=== PATIENT | male | born 1960 | race Caucasian/White ===

== ENCOUNTER 2019-11-16 16:17 | Outpatient (CLI) | payer BC, SELFPAY ==
--- NOTE | ~2019-11-16 | XR_ITS ---
EXAMINATION: XR chest 2V DATE: 11/16/2019 16:39 INDICATION: Shortness of breath, COPD TECHNIQUE: PA and lateral views of the chest are obtained. COMPARISON: 10/10/2019, 08/29/2019 FINDINGS: A right internal jugular Port-A-Cath ends with its tip in the right atrium. There are inter stitial and airspace opacities of the right mid and lower lung zone which demonstrate interval worsen ing. Patchy opacities of the left mid and lower lung zones have developed. There is no pleural effusi on or pneumothorax. The heart size is normal. There is moderate thoracic spondylosis. Partially image d changes of cervical fusion are noted. IMPRESSION: 1. Opacities of the mid and lower lung zones, worse on the right and new on the left, likely acute pn eumonia and/or pulmonary edema superimposed on chronic interstitial lung disease and emphysema. Reviewed, dictated and finalized at location A. UNTING MACHINE SERVICER IMPRESSION: 1. Opacities of the mid and lower lung zones, worse on the right and new on the left, likely acute pneumonia and/or pulmonary edema superimposed on chronic in terstitial lung disease and emphysema.
== END 2019-11-16 16:18 | disposition home or self-care (01) ==
LOC: ANHIMG 16:20
PROVIDERS: Visit Provider Internal Medicine Pulmonary Disease
DX: J44.9 Chronic obstructive pulmonary disease, unspecified (principal); R06.02 Shortness of breath; R91.8 Other nonspecific abnormal finding of lung field
CPT/HCPCS: 71046

== ENCOUNTER 2019-11-23 14:26 | Outpatient (CLI) | payer BC, SELFPAY ==
--- NOTE | ~2019-11-23 | XR_ITS ---
EXAMINATION: XR chest 2V EXAM DATE: 11/23/2019 14:49 INDICATION: Lung disorder. Airspace disease. TECHNIQUE: Frontal and lateral projections of the chest obtained and reviewed. Comparison is made to prior examination from 11/16/2019, 10/10/2019. FINDINGS: Right-sided portacatheter. Again there is extensive bilateral abnormal reticulation, worse on the right side. This is not significantly changed compared to, but progressed compared to 10/10 . Certainly has chronic interstitial lung disease but there may be superimposed acute component as we ll. There is no pneumothorax suspected. There are no pleural effusions. Cardiomediastinal silhouette is normal. There are no osseous abnormalities identified. IMPRESSION: 1. Persistent extensive abnormal reticulation, chronic or acute infection on chronic pulmonary fibr osis. Reviewed, dictated and finalized at location B. ICE RN IMPRESSION: 1. Persistent extensive abnormal reticulation, chronic or acute infection on chronic pulmonary fibrosis.
== END 2019-11-23 14:27 | disposition home or self-care (01) ==
LOC: ANHIMG 14:31
PROVIDERS: Visit Provider Internal Medicine Pulmonary Disease
DX: J98.4 Other disorders of lung (principal); J84.10 Pulmonary fibrosis, unspecified; R91.8 Other nonspecific abnormal finding of lung field
CPT/HCPCS: 71046

== ENCOUNTER 2019-11-28 12:23 | Inpatient (IN) | payer BC, SELFPAY ==
[2019-11-28] VITALS (13 sets, daily range): BP systolic 108–141; BP diastolic 71–112; PULSE 106–150; RESP 33–41; TEMP 37.1–37.6; O2SAT 41–97; BMI 25.5
--- NOTE | ~2019-11-28 | XR_ITS ---
XR chest 1V portable 12/03/2019 05:35 Indication: Acute respiratory failure. Pneumonia. Interstitial lung disease. Procedure: AP portable chest Comparison: Comparison to multiple prior studies sequentially, with oldest reviewed study dated 11/2019. Findings: Endotracheal tube tip 2.6 cm above the poornima. NG tube in the stomach. Stable cardiomegaly. Right IJ central line tip in the right atrium. Persistent diffuse bilateral airspace disease superim posed on chronic pulmonary fibrosis. Impression: 1: Persistent diffuse bilateral airspace disease superimposed on chronic pulmonary fibrosis. Differcande tiamichael diagnosis includes pneumonia, edema and/or ARDS. No significant change. Reviewed, dictated and finalized at location A. PULLER Impression: 1: Persistent diffuse bilateral airspace disease superimposed on chronic pulmon etienne fibrosis. Differential diagnosis includes pneumonia, edema and/or ARDS. No significant change.
--- NOTE | ~2019-11-28 | XR_ITS ---
XR chest 1V portable 12/06/2019 06:00 Indication: Acute respiratory failure. Interstitial lung disease. Procedure: AP portable chest Comparison: Comparison to multiple prior studies sequentially, with oldest reviewed study dated . Findings: Endotracheal tube tip 4.7 cm above the poornima. NG tube in the stomach. Port catheter tip in the right atrium. There is stable extensive mixed interstitial and airspace disease of both lungs. N o pleural effusion or pneumothorax. Impression: 1: Stable mixed interstitial and airspace disease throughout both lungs, likely edema or pneumonia price perimposed on pulmonary fibrosis. Reviewed, dictated and finalized at location A. Impression: 1: Stable mixed interstitial and airspace disease throughout both lungs, likely edema or pneumonia superimposed on pulmonary fibrosis.
--- NOTE | ~2019-11-28 | XR_ITS ---
EXAMINATION: XR chest ET placement, XR abdomen NG/feed tube insert DATE: 11/29/2019 00:33 INDICATION: Endotracheal tube and nasogastric tube placement. TECHNIQUE: 1. Frontal view of the chest was obtained. 2. AP view of the abdomen was obtained. COMPARISON: Chest radiograph dated 11/28/19 FINDINGS: Endotracheal tube tip 4.4 cm above the poornima. Right internal jugular central venous port catheter wi th distal tip at the right atrium. Nasogastric tube tip in proximal side port in the body of the stom ach. Slight progression in diffuse bilateral interstitial and airspace opacities. No pneumothorax or defin itive pleural effusion. Borderline heart size. No dilated gas-filled bowel to suggest obstruction. IMPRESSION: 1. Lines and tubes in expected positions. 2. Slight progression of diffuse bilateral lung disease which could represent pneumonia, pulmonary ed carlos and/or ARDS. Reviewed, dictated and finalized at location A. T COURT MAGISTRATE IMPRESSION: 1. Lines and tubes in expected positions. 2. Slight progression of diffuse bilateral lung disease which could represent p neumonia, pulmonary edema and/or ARDS.
--- NOTE | ~2019-11-28 | XR_ITS ---
EXAMINATION: XR chest 1V portable DATE: 11/30/2019 06:07 INDICATION: Acute respiratory failure TECHNIQUE: frontal view of the chest was obtained. COMPARISON: Chest radiograph dated 11/29/2019 FINDINGS: Endotracheal tube tip 2.4 cm above the poornima. Right internal jugular central venous catheter with di stal tip in the right atrium. Nasogastric tube extends below the left hemidiaphragm with distal tip collimated off the study. Unchanged diffuse bilateral interstitial and airspace opacities, relatively sparing the apices. No pn eumothorax or pleural effusion. The cardiomediastinal silhouette is normal. IMPRESSION: 1. Diffuse bilateral lung disease which could represent pneumonia, pulmonary edema and/or ARDS. Reviewed, dictated and finalized at location A. BUSINESS ANALYST IMPRESSION: 1. Diffuse bilateral lung disease which could represent pneumonia, pulmonary ed carlos and/or ARDS.
--- NOTE | ~2019-11-28 | XR_ITS ---
XR chest 1V portable 11/28/2019 13:44 Indication: Hypoxia. Dyspnea. Procedure: AP portable chest Comparison: Comparison to multiple prior studies sequentially, with oldest reviewed study dated 02/05. Findings: Borderline heart size. Port catheter tip near the cavoatrial junction. Extensive bilateral airspace disease, likely superimposed on chronic fibrosis. No pneumothorax or pleural effusion. Impression: 1: Extensive bilateral airspace disease which may represent pneumonia, edema and/or ARDS. There is kenn guajardoy superimposed underlying chronic fibrosis. Reviewed, dictated and finalized at location B. WARE APPLICATION TESTER Impression: 1: Extensive bilateral airspace disease which may represent pneumonia, edema an d/or ARDS. There is likely superimposed underlying chronic fibrosis.
--- NOTE | ~2019-11-28 | CT_ITS ---
EXAMINATION: CTA chest PE protocol DATE: 11/28/2019 13:48 CONSULTING ANALYST INDICATION: Cough with dyspnea. Hypoxia. TECHNIQUE: Computed tomographic angiography (CTA) of the chest was performed with 100 mL Omnipaque-35 0 intravenous contrast. The dose-length product was 417.71 mGy-cm. Maximum intensity projection 3D-re constructions of the aorta and other arteries were constructed by the technologist on a separate work station. Automated exposure control and iterative reconstruction technique were employed. COMPARISON: CT dated 08/29/2019 FINDINGS: Study is technically adequate. There are filling defects in left lower lobe subsegmental pu lmonary arteries, consistent with pulmonary embolism, small thrombus burden. Small right pleural effu fidel. Heart size normal. There has been progression of extensive bronchiectasis throughout both lungs. There is extensive airs pace consolidation with underlying diffuse groundglass opacification. No pneumothorax. Mild thoracic spondylosis. Irregular shaped right upper lobe mass measures 3 x 2.3 cm consistent with known broncho genic carcinoma. IMPRESSION: 1. Subsegmental pulmonary embolism left lower lobe, small thrombus burden. 2: Significant progression of mixed interstitial and airspace disease throughout both lungs which may represent a combination of pneumonia, edema, metastatic disease and/or fibrosis. There has been sign ificant progression of bronchiectasis/honeycombing throughout both lungs. 3: Persistent right upper lobe mass without significant change allowing for differences of technique, compatible with known bronchogenic carcinoma. Reviewed, dictated and finalized at location B. ULTING ANALYST IMPRESSION: 1. Subsegmental pulmonary embolism left lower lobe, small thrombus burden. 2: Significant progression of mixed interstitial and airspace disease throughou t both lungs which may represent a combination of pneumonia, edema, metastatic disease and/or fibrosis. There has been significant progression of bronchiectas is/honeycombing throughout both lungs. 3: Persistent right upper lobe mass without significant change allowing for dif ferences of technique, compatible with known bronchogenic carcinoma.
--- NOTE | ~2019-11-28 | XR_ITS ---
XR chest 1V portable DATE: 12/09/2019 05:51 INDICATION: Respiratory failure TECHNIQUE: Portable AP chest on 12/09/2019 at 0524 hours COMPARISON: 12/08/2019 portable AP chest at 0518 hours FINDINGS: There is no significant change in the diffuse bilateral pulmonary interstitial infiltrate a nd/or fibrosis since 12/08/2019. ET tube in satisfactory position approximately 3.5 cm above poornima. NG tube in distal stomach. Right internal jugular Port-A-Cath catheter tip overlies the lower right atrium. IMPRESSION: Diffuse bilateral pulmonary interstitial infiltrates and/or fibrosis; no significant edwards ge since 12/08/2019 Reviewed, dictated and finalized at location A. IMPRESSION: Diffuse bilateral pulmonary interstitial infiltrates and/or fibrosi s; no significant change since 12/08/2019
--- NOTE | ~2019-11-28 | XR_ITS ---
XR chest 1V portable DATE: 12/08/2019 06:18 INDICATION: Respiratory failure TECHNIQUE: Portable AP chest on 12/08/2019 at 0518 hours COMPARISON: 12/07/2019 portable AP chest at 0524 hours FINDINGS: ET tube tip is 4.9 cm above poornima in satisfactory position. NG tube extends into the dista l stomach. Right internal jugular Port-A-Cath tip overlying lower right atrium. Diffuse interstitial bilateral pulmonary infiltrates and/or fibrosis, unchanged since 12/07/2019 IMPRESSION: No significant change since 12/07/2019 Reviewed, dictated and finalized at location A.
--- NOTE | ~2019-11-28 | CT_ITS ---
EXAMINATION: CT humerus LT wo con DATE: 12/08/2019 11:29 INDICATION: Left upper arm swelling. TECHNIQUE: Computed tomography (CT) of the left humerus was performed without intravenous contrast. A utomated exposure control and iterative reconstruction technique were employed. The dose-length produ ct was 1350.99 mGy-cm. COMPARISON: Chest CT 11/28/2019 FINDINGS: The endotracheal tube tip is in expected position. The nasogastric tube tip is not included , but is likely in the distal stomach or proximal duodenum. Pneumomediastinum is noted. Left lung dem onstrates a combination of emphysema and chronic interstitial lung disease. There are diffuse patchy groundglass opacities in left lung. Calcified left lung nodules and calcified left hilar and mediasti nal lymph nodes are consistent with old granulomatous disease. There are changes of anterior fusion p rocedure in cervical spine. Bone alignment is normal. No fracture. There is mild osteoarthritis of gl enohumeral joint and acromio clavicular joint. There is a large hematoma involving the biceps and bra chialis muscles. IMPRESSION: 1. Large hematoma involving the left biceps and brachialis muscles. 2. Pneumomediastinum. 3. Diffuse left lung disease, likely a combination of emphysema and chronic interstitial lung disease with superimposed pulmonary edema versus pneumonia. Reviewed, dictated and finalized at location A. IMPRESSION: 1. Large hematoma involving the left biceps and brachialis muscles. 2. Pneumomediastinum. 3. Diffuse left lung disease, likely a combination of emphysema and chronic int erstitial lung disease with superimposed pulmonary edema versus pneumonia.
--- NOTE | ~2019-11-28 | XR_ITS ---
EXAMINATION: XR chest ET placement EXAM DATE: 12/03/2019 16:59 INDICATION: Intubated. TECHNIQUE: Portable AP frontal chest x-ray was obtained. Comparison is made to prior examination from 12/03/2019. Correlation was made with chest CT 11/28/2019. FINDINGS: Endotracheal tube tip is 5 centimeters above the poornima (ideal range is between 2 to 5 cm). There is a nasogastric tube seen with tip collimated off the study, but below the left hemidiaphrag m. Right-sided portacatheter, intact line. Cervical fusion hardware. Again there is diffuse abnormal reticulation airspace disease, appearance is not significant changed compared to prior study. Probably acute edema or pneumonia superimposed on chronic interstitial lung disease. No sizable pleural effusion. The cardiomediastinal silhouette is prominent but magnified on this AP technique. There is no pneumothorax suspected. There are mild bony degenerative changes. IMPRESSION: 1. Tubes in position. 2. Extensive airspace disease likely acute on chronic fibrosis. Reviewed, dictated and finalized at location A. LANGUAGE INSTRUCTOR
--- NOTE | ~2019-11-28 | XR_ITS ---
EXAMINATION: XR chest 1V portable DATE: 12/02/2019 05:14 INDICATION: Acute respiratory failure. TECHNIQUE: A single frontal view of the chest was obtained. COMPARISON: Chest single view 12/01/2019 FINDINGS: There is mild volume loss in right hemithorax. There are coarse interstitial opacities and patchy airspace opacities throughout the lungs bilaterally. No pleural effusion or pneumothorax. The heart size is normal. The endotracheal tube tip is 3.1 cm above the poornima. The nasogastric tube tip is beyond the inferior margin of the radiograph, but at least to the stomach. There is a right lab intern al jugular port with tip in right atrium. IMPRESSION: 1. Unchanged diffuse lung disease, consistent with pulmonary edema versus pneumonia versus acute resp iratory distress syndrome (ARDS) superimposed on a combination of emphysema and chronic interstitial lung disease. Reviewed, dictated and finalized at location A. TICAL NURSING FACULTY IMPRESSION: 1. Unchanged diffuse lung disease, consistent with pulmonary edema versus pneum onia versus acute respiratory distress syndrome (ARDS) superimposed on a combin ation of emphysema and chronic interstitial lung disease.
--- NOTE | ~2019-11-28 | XR_ITS ---
XR chest 1V portable 12/04/2019 05:44 Indication: Acute respiratory failure Procedure: AP portable chest Comparison: Comparison to multiple prior studies sequentially, with oldest reviewed study dated 01/2020. Findings: Borderline heart size. Mild interstitial edema, likely superimposed on fibrosis. Portacathe ter tip in the right atrium. NG tube in the stomach. Endotracheal tube tip 4 cm above the poornima. No pneumothorax. Impression: 1: Persistent widespread airspace disease, most likely edema superimposed on fibrosis. Cannot exclude pneumonia or ARDS. Reviewed, dictated and finalized at location A. Impression: 1: Persistent widespread airspace disease, most likely edema superimposed on fi brosis. Cannot exclude pneumonia or ARDS.
--- NOTE | ~2019-11-28 | XR_ITS ---
XR chest ET placement 12/04/2019 09:14 Indication: Endotracheal tube exchange Procedure: AP portable chest Comparison: Comparison to multiple prior studies sequentially, with oldest reviewed study dated 02/2020. Findings: Endotracheal tube tip 9 mm above the poornima. Recommend retraction 2-3 cm. Otherwise, no sig nificant change to diffuse bilateral airspace disease superimposed on pulmonary fibrosis. Central vicente e tip in the right atrium. NG tube in the stomach. Impression: 1: Endotracheal tube tip 9 mm above the poornima. Retraction recommended. Otherwise, no significant travis nge. Reviewed, dictated and finalized at location A. Impression: 1: Endotracheal tube tip 9 mm above the poornima. Retraction recommended. Otherwi se, no significant change.
--- NOTE | ~2019-11-28 | XR_ITS ---
EXAMINATION: XR abdomen/kub 1V DATE: 12/08/2019 14:26 INDICATION: Adynamic ileus. TECHNIQUE: A supine view of the abdomen was obtained. COMPARISON: Abdomen radiograph 11/29/2019 FINDINGS: There are no dilated loops of bowel. The nasogastric tube tip is in the distal stomach. IMPRESSION: 1. Nonobstructive bowel gas pattern. Reviewed, dictated and finalized at location A.
--- NOTE | ~2019-11-28 | XR_ITS ---
XR chest 1V portable 12/05/2019 05:55 Indication: Acute respiratory failure. Pneumonia. Interstitial lung disease. Procedure: AP portable chest Comparison: Comparison to multiple prior studies sequentially, with oldest reviewed study dated 03/2020. Findings: Endotracheal tube 4.9 cm above the poornima. NG tube in the stomach. Borderline heart size fo r technique. No significant change to diffuse bilateral mixed interstitial and airspace disease. No p leural effusion or pneumothorax. Impression: 1: Stable diffuse mixed bilateral interstitial and airspace disease which may represent edema or pneu monia superimposed on chronic fibrosis. Reviewed, dictated and finalized at location A. Impression: 1: Stable diffuse mixed bilateral interstitial and airspace disease which may r epresent edema or pneumonia superimposed on chronic fibrosis.
--- NOTE | ~2019-11-28 | XR_ITS ---
XR chest 1V portable DATE: 12/07/2019 05:50 INDICATION: Acute respiratory failure. Pneumonia. Interstitial lung disease. TECHNIQUE: Portable AP chest on 12/07/2019 at 0524 hours COMPARISON: 12/06/2019 portable AP chest at 0532 hours FINDINGS: Tip of ET tube is 4 cm above poornima. NG tube in distal stomach. Right internal jugular Port-A-Cath catheter tip overlying lower right atrium. There is persistent prominent mixed interstitial and alveolar airspace disease throughout both lung f ields without significant change since 12/06/2019. No pleural effusion. No pneumothorax. IMPRESSION: No significant change since 12/06/2019 Reviewed, dictated and finalized at location A.
--- NOTE | ~2019-11-28 | XR_ITS ---
EXAMINATION: XR chest 1V portable DATE: 12/01/2019 05:43 INDICATION: Acute respiratory failure. TECHNIQUE: A single frontal view of the chest was obtained. COMPARISON: Chest single view 11/30/2019, chest CT 11/28/2019, 05/19/2019 FINDINGS: There is mild volume loss in right hemithorax. There is a diffuse coarse interstitial patte rn throughout the lungs bilaterally. There are patchy airspace opacities in the mid and lower lung zo zof[place] bilaterally. No pleural effusion or pneumothorax. The heart size is normal. The endotracheal tube tip is 3.7 cm above the poornima. The nasogastric tube tip is beyond the inferior margin of the radiog raph, but at least to the stomach. There is a right internal jugular port with tip in right atrium. IMPRESSION: 1. Diffuse lung disease with slight improvement on the left, consistent with pulmonary edema versus p neumonia versus acute respiratory distress syndrome (ARDS) superimposed on a combination of emphysema and chronic interstitial lung disease. Reviewed, dictated and finalized at location A. ENT OFFICE REP IMPRESSION: 1. Diffuse lung disease with slight improvement on the left, consistent with pu lmonary edema versus pneumonia versus acute respiratory distress syndrome (ARDS ) superimposed on a combination of emphysema and chronic interstitial lung dise ase.
--- NOTE | 2019-11-28 12:22 | ECG_ITS ---
Measurements Intervals [place] Rate: 142 P: 19 NJ: 117 QRS: 6 QRSD: 81 T: 14 QT: 290 QTc: 446 Interpretive Statements SINUS TACHYCARDIA ATRIAL PREMATURE COMPLEX BASELINE ARTIFACT- I, III, AVR, AVL, AVF ABNORMAL ECG Electronically Signed On 11-28-2019 13:03:10 TONG CARRIER by Lopez Machado D.O.
--- NOTE | 2019-11-28 12:29 | ED.SOB ---
HPI - SOB/Dyspnea General Chief Complaint: Unspecified Stated Complaint: elevated heart rate Time Seen by Provider: 11/28/19 12:28 Source: patient, family (pt's ) and RN notes reviewed Mode of arrival: EMS Limitations: no limitations History of Present Illness HPI Narrative: Pt is a 59 y/o male with a Hx of lung cancer, who presents to the ED via EMS with c/o SOB starting several days ago. According to the pt's , he is currently in between treatments for his lung cancer. 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 Pt has already finished a course of Cipro for his pneumonia. Pt's notes that he is currently on 2 L of home O2, but states that his O2 saturation has been in the 80's over the past several days. She notes that his SOB is aggravated with any sort of exertion. Pt also reports a cough for the past several days as well as epistaxis while in the ED bed, but denies any fever, CP, or ABD pain. He is not currently taking any blood thinners. Pt denies any recent travel. MD elicited complaint: shortness of breath Pertinent past history: pneumonia and other (lung cancer) Onset (ago): day(s) (several) Context: recent illness (pneumonia) Exacerbating factors: exertion Associated symptoms: cough and other (epistaxis) Treatment prior to arrival: oxygen Related Data Allergies Allergy/AdvReac Type Severity Reaction Status Date / Time adhesive Allergy Intermediate Itching, Verified 02/05/19 05:49 redness, skin tears bacitracin Allergy Mild Verified 02/05/19 05:49 gramicidin D Allergy Mild Verified 02/05/19 05:49 neomycin Allergy Mild Verified 02/05/19 05:49 Penicillins Allergy Mild Verified 02/05/19 05:49 polymyxin B Allergy Mild Verified 02/05/19 05:49 Review of Systems Review of Systems: Narrative: CONSTITUTIONAL: Denies fever, chills, or sweats. ENT: Denies rhinorrhea, congestion, sore throat, or otalgia. Reports epistaxis. CARDIOVASCULAR: Denies chest pain, palpitations, or edema. RESPIRATORY: Reports cough and dyspnea. GASTROINTESTINAL: Denies abdominal pain, nausea, vomiting, or diarrhea. All systems reviewed & are unremarkable except as noted in HPI and below PMFSH Past Medical History Medical History (Updated 11/28/19 @ 14:12 by Jessy Burns MD) GERD (gastroesophageal reflux disease) HTN (hypertension) Lung cancer On home O2 2 L Pneumonia Surgical History Surgical History Hx of appendectomy Hx of arthroscopy of right knee Hx of cervical spine surgery Hx of tonsillectomy Social History Social History Smoking status: Former smoker Gender identity (if verbalized by the patient): Male Exam Narrative: Exam Narrative: GENERAL: Ill appearing, awake, alert, and in severe respiratory distress. HEAD: Normocephalic, atraumatic. EYES: PERRLA and EOMI. ENT: Nares clear, no rhinorrhea or epistaxis. Mucous membranes dry. NECK: Supple. CHEST: Coarse breath sounds. Crackles in lt lung. Tachypneic. Severe respiratory distress. HEART: Tachycardic and regular rhythm. No murmur heard. Normal peripheral pulses. ABDOMEN: Soft, nontender, nondistended, normal active bowel sounds. EXTREMITIES: Normal range of motion. No edema. SKIN: Warm, dry. Cyanotic and mottled. NEURO: No focal deficits. Alert and oriented. Course Course Emergency Course: The patient presenting to the emergency department for evaluation of shortness of breath. At the time of initial assessment, airway is intact, patient is severely hypoxic with oxygen saturation 66%. Patient is cyanotic appearing, however he is awake and alert. The patient was placed on a nonrebreather, respiratory therapy came and patient was then placed on BiPAP with good improvement in his oxygenation. Portable chest x-ray is concerning for ARDS type pathology. Patient li
[2019-11-28 12:47] LABS: Alveolar/Arterial O2 Gradient 594.9 mmHg; Base Excess ABG -0.7 mEq/l (+/-2.0); Carboxyhemoglobin 1.4 % THb (0-2.0); Fractional Inspired Oxygen 100 %; HCO3 ABG 23.8 mEq/l (22.0-26.0); Methemoglobin ABG 0.3 %THb (0-1.5); Oxygen Content ABG 21.4 %vol (16.0-22.0); Oxygen Saturation ABG 95.8 % (95.0-100.0); PCO2 ABG 38.7 mmHg (35.0-45.0); PO2 ABG 79.4 mmHg (80.0-100.0); PO2 FiO2 Ratio Arterial Blood 0.79 %; Reduced Hemoglobin 4.3 %THb (0-5.0); Total Hemoglobin 16.2 g/dL (12.0-18.0); pH ABG 7.406 (7.350-7.450)
[2019-11-28 12:51] LABS: Device NON-INVASIVE VENT; Modified Allen's Test Pass; Non-Invasive Expiratory Pressure 8 CMH2O; Non-Invasive Inspiratory Pressure 18 CMH2O; Non-Invasive Vent Rate 20 /MIN; Site Drawn LEFT RADIAL
[2019-11-28] MEDS: SODIUM CHLORIDE 0.9% IV 1,000 ML 999 ML IV CONT (12:55)
[2019-11-28] MEDS: SODIUM CHLORIDE 0.9% IV 1,000 ML 30 ML IV CONT (12:56)
[2019-11-28 13:04] LABS: Basophils Absolute Auto 0.1 K/mm3 (0.0-0.1); Basophils Percent Auto 0.4 % (0.2-1.2); Eosinophils Absolute Auto 0.1 K/mm3 (0-0.3); Eosinophils Percent Auto 0.3 % (0-4.4); Hematocrit 46.7 % (42.0-52.0); Hemoglobin 15.8 g/dL (14.0-18.0); Immature Granulocyte Absolute 0.16 K/mm3 (0.00-0.031); Immature Granulocyte Percent A 0.8 % (0-0.5); Lymphocytes Absolute Auto 0.51 K/mm3 (0.9-3.2); Lymphocytes Percent Auto 2.7 % (18.3-44.2); Mean Corpuscular HGB Conc 33.8 g/dl (32-36); Mean Corpuscular Volume 94.5 fl (80-100); Mean Platelet Volume 10.4 fl (7.4-10.4); Monocytes Absolute Auto 1.3 K/mm3 (0.1-0.6); Monocytes Percent Auto 6.6 % (2.6-8.5); Neutrophils Absolute Auto 17.1 K/mm3 (1.3-6.7); Neutrophils Percent Auto 89.2 % (45.5-73.1); Platelet Count Result 200 k/mm3 (150-375); Red Blood Count 4.94 M/mm3 (4.6-6.20); Red Cell Distribution Width 13.1 % (11.5-14.5); White Blood Count 19.2 K/mm3 (4.5-10.0)
[2019-11-28 13:17] LABS: Lactic Acid Reflex 2.8 mmol/L (0.7-2.1)
[2019-11-28 13:25] LABS: Estimated CRCL calculation 76 ml/min; Estimated Glomerular Filt Rate > 60
--- NOTE | 2019-11-28 13:45 | PC.NURSE ---
This RN asked pt if he could give a urine sample. Pt states no not right now . When explained to pt that if unable to give urine sample after some time, we would straight cath him. Pt then replied good luck with that . Informed Dr. Burns of this
[2019-11-28 14:01] LABS: INR 1.4; Prothrombin Time 16.4 Seconds (11.1-14.7)
[2019-11-28 14:02] LABS: Alanine Aminotransferase 32 U/L (4-50); Albumin Level 2.5 g/dL (3.5-5.1); Alkaline Phosphatase 72 U/L (38-126); Aspartate Amino Transferase 33 U/L (17-59); Bilirubin,Total 0.6 mg/dL (0.2-1.3); Blood Urea Nitrogen 21 mg/dL (9-20); Calcium 7.5 mg/dL (8.4-10.2); Carbon Dioxide 23 mmol/L (22-30); Chloride 101 mmol/L (98-107); Estimated CRCL calculation 76 ml/min; Estimated Glomerular Filt Rate > 60; Glucose 104 mg/dL (75-110); Partial Thromboplastin Time 27.7 SECONDS (22.3-36.8); Potassium 3.6 mmol/L (3.4-5.0); Sodium 135 mmol/L (137-145)
[2019-11-28 14:11] LABS: Troponin I 0.187 ng/mL (0.000-0.034)
[2019-11-28 14:28] LABS: CRP 15.8 mg/dL (<1.0)
[2019-11-28] MEDS: HEPARIN SODIUM 5,000 UNITS/ML VIAL 6000 UNITS IV PUSH (15:23)
--- NOTE | 2019-11-28 15:47 | ADMGEN ---
This patient, Elia Jason, was admitted to Intensive Care Unit-6. Patient/family oriented to hospital policies and general routines including ID bracelet, bed and alarms, visiting hours, pain management, procedures, bathroom and other care routines, personal items, smoking policy, room service/diet, and visiting hours. Valuables list has been completed. Information on how to activate the Rapid Response Team has been discussed. Patient/Family are encouraged to report perceived risks to care and to ask questions if they do not understand what they are told or what they should do.
[2019-11-28] MEDS: SODIUM CHLORIDE 0.9% IV 1,000 ML 125 ML IV CONT (15:50)
[2019-11-28] MEDS: HEPARIN SOD/D5W 100 UNITS/ML 25,000 UNITS/250 ML BAG 15 UNITS IV CONT (15:50)
[2019-11-28 16:02] LABS: Reflex Lactic Acid Yes or No Add Lactic
--- NOTE | 2019-11-28 16:56 | PM.IMHP ---
H&P: HPI History of Present Illness Chief complaint: Sepsis/ARDS/PE/Respiratory failure Narrative: Elia Jason is a 59 year old male who has a past medical history of having lung cancer. The patient had received chemotherapy and radiation therapy at [facility] during the summer into the fall. According to the he smokes half a 6 months checkup December 07 of this year. The patient does use some type of oxygen machine at home. He is not currently receiving any type of treatment for his lung cancer at this time. According to the he has non-small cell carcinoma of the lung. He was also treated with empiric radiation to the brain as well. But he does not have any brain cancer. The patient has been treated for pneumonia with Cipro. Patient finished his course of Cipro. His O2 saturations have been in the 80s over the past several days. The patient has been having a cough. He has also been on prednisone on a titrating dose. His geochemical manager is Dr. Pauile Evans who is associated with [facility] and [facility]. Patient started breath with exertion. He is not had any history of any DVTs or PEs. He is not taking any blood thinners. White count was noted to be 19.2. CT of the lungs was read as subsegmental pulmonary embolism left lower lobe, small thrombus burden. The patient was started on heparin drip per protocol. Also CT goes on to say significant progression of mixed interstitial and airspace disease throughout both lungs which may represent a combination of pneumonia, edema, metastasis disease and or fibrosis. Patient is aware of honeycombing his geochemical manager. He also has a persistent right upper lobe mass without significant change allowing for differences of technique, compatible with known bronchogenic carcinoma. From what I understand from the is he is supposed to follow-up this month for possible PET scans. On the BiPAP machine 13/05. He is doing well with the rate of 20. We bumped up his FiO2 to 100%. He had been on 75% initially and was still satting in the upper 80s. Patient still has a cough but I am not sure if it is productive. On azo the mycin Rocephin. He was given IV fluids for sepsis. He was given IV Tylenol. Patient has tachypnea and tachycardia and elevated white count. However his blood pressure appears to be stable at this time. He is admitted to the intensive care unit. [place] Attacher had been notified. Date of service is 11/28/2019 Review of Systems Review of Systems: Narrative: No fever chills All systems reviewed & are unremarkable except as noted in HPI and below Constitutional: Constitutional: Reports as per HPI and Reports no additional constitutional complaints Eyes: Eyes: Reports as per HPI and Reports no additional eye complaints ENT: Reports system reviewed and no additional complaints, except as documented and Reports Normal hearing present Cardiovascular: Cardiovascular: Reports no additional cardiovascular complaints Respiratory: Respiratory: Reports no additional respiratory complaints, Reports no additional respiratory complaints, Reports chest congestion, Reports dyspnea and Reports dyspnea on exertion Comments: History of lung cancer Gastrointestinal: Gastrointestinal: Reports as per HPI and Reports no additional gastrointestinal complaints Musculoskeletal: Musculoskeletal: Reports no additional musculoskeletal complaints Integumentary/Breasts: Skin/Breast: Reports system reviewed and no additional complaints, except as docu and Reports as per HPI Neurologic: Reports system reviewed and no additional complaints, except as documented, Reports as per HPI and Reports Normal hearing present Psychiatric: Psychiatric: Reports no additional psychiatric complaints and Reports as per HPI Endocrine: Endocrine: Reports no additional endocrine complaints Hematologic/Lymphatic: Hematologic/Lymphatic: Reports no additional hematologic/lymphatic complaints Allergic/Immunologic: Allergic/Immuno
[2019-11-28 16:58] LABS: Lactic Acid 3.3 mmol/L (0.7-2.1)
[2019-11-28 17:13] LABS: Add Urine Microscopic? YES; Appearance Urine Clear (Clear); Bilirubin Urine Negative (Negative); Blood Urine Negative (Negative); Color Urine Yellow (Yellow); Glucose Urine UA Negative (Negative); Ketones Urine Negative (Negative); Leukocyte Esterase Ur Negative LEU/UL (Negative); Mucus Urine Few /lpf; Nitrate Urine Negative (Negative); Protein Urine 1+ mg/dL (Negative); RBC Urine 0-2 /hpf (0-2); Urobilinogen Urine Negative mg/dL (<2.0); WBC Urine 0-3 /hpf
[2019-11-28 17:20] LABS: Specific Grav Ur > 1.060 (1.001-1.035)
[2019-11-28] MEDS: BUDESONIDE RESPULE NEB 0.5 MG/2 ML AMP INHALATION (20:25)
[2019-11-28] MEDS: methylPREDNISolone SOD SUCC 125 MG VIAL 60 MG IV PUSH (20:25)
[2019-11-28] MEDS: IPRATROPIUM BR 0.02% INH SOLN 0.5 MG/2.5 ML VIAL INHALATION (20:25)
[2019-11-28 20:40] LABS: Alveolar/Arterial O2 Gradient 591.8 mmHg; Base Excess ABG -3.2 mEq/l (+/-2.0); Carboxyhemoglobin 0.1 % THb (0-2.0); Fractional Inspired Oxygen 100 %; HCO3 ABG 23.3 mEq/l (22.0-26.0); Methemoglobin ABG 0.5 %THb (0-1.5); Oxygen Content ABG 19.9 %vol (16.0-22.0); Oxygen Saturation ABG 93.5 % (95.0-100.0); Oxyhemoglobin 92.9 % THb (90.0-100.0); PCO2 ABG 47.3 mmHg (35.0-45.0); PO2 ABG 73.9 mmHg (80.0-100.0); PO2 FiO2 Ratio Arterial Blood 0.74 %; Reduced Hemoglobin 6.5 %THb (0-5.0); Total Hemoglobin 15.2 g/dL (12.0-18.0); pH ABG 7.311 (7.350-7.450)
[2019-11-28 20:41] LABS: Device NON-INVASIVE VENT; Modified Allen's Test Pass; Non-Invasive Expiratory Pressure 8 CMH2O; Non-Invasive Inspiratory Pressure 16 CMH2O; Non-Invasive Vent Rate 20 /MIN; Site Drawn LEFT RADIAL
--- NOTE | 2019-11-28 21:19 | PM.EVENT ---
Event Note Event Note Event Note: Dr. watson was called by the ICU nurse concerning the patient's respiratory status. Patient had a nebulizer treatment and had a possible bronchial spasm. He was coughing very hard and his O2 saturation decreased in the 80s and not 70s. A came to the intensive care unit to assess the patient and he is talking in full sentences without difficulty. The patient is satting in the upper 90s and his heart rate is in 1 teens. Respiratory rate is stone 40. I spoke to the patient his about possibly intubating and the patient stated he did not want to get intubated at this time. Patient id states that he is doing fine on the the BiPAP machine and would like to continue with this for now. The patient is pink and warm and talking without difficulty.
[2019-11-28 22:08] LABS: Lactic Acid 2.1 mmol/L (0.7-2.1); Partial Thromboplastin Time 25.5 SECONDS (22.3-36.8)
[2019-11-28 22:27] LABS: Troponin I 0.259 ng/mL (0.000-0.034)
[2019-11-28] MEDS: HEPARIN SODIUM 5,000 UNITS/ML VIAL 6500 UNITS IV PUSH (22:30)
[2019-11-29] VITALS (32 sets, daily range): BP systolic 83–210; BP diastolic 64–130; PULSE 82–132; RESP 15–20; TEMP 36.3–36.9; O2SAT 90–97; BMI 26.6
--- NOTE | 2019-11-29 | ECHO_ITS ---
Patient Info Name: Elia Jason Age: 59 years : 1960 Gender: Male Ht: 69 in Wt: 172 lbs BSA: 1.96 m2 HR: 93 bpm BP: 83 / 66 mmHg Technical Quality: Good Exam Date: 11/29/2019 7:34 AM Exam Location: [facility] Patient Status: Inpatient Admit Date: 11/28/2019 Staff Ordering Physician: Syl Zamudio NP Archaeology Professor: Je Batista RDCS, RT Attending Provider: Rafaela Urbina MD Referring Physician: Lizz MAGUIRE; Exam Type: CA echo dop color flow w con Study Info Indications J90 - Pleural effusion, not elsewhere classified Complete two-dimensional, color flow and Doppler transthoracic echocardiogram is performed with contrast to opacify the left ventrical and to improve the deliniation of the left ventrical endocarial boarders. Summary 1. The mitral valve has normal leaflets. 2. There is no mitral valve regurgitation. 3. Mild pulmonary hypertension, estimated pulmonary arterial systolic pressure is \R\45mmHg. 4. There is mild tricuspid valve regurgitation. 5. Left ventricular systolic function is normal, estimated at 50-55%. 6. Right ventricule not well visualized but appears grossly normal in size and systolic function. 7. inferior vena cava is dilated and does not collapse with respiration (Pt on the vent). Left Ventricle Left ventricular chamber dimension is normal. Left ventricular systolic function is normal, estimated at 50-55%. There is no increased left ventricular wall thickness. The left ventricular diastolic function is grade I diastolic dysfunction. Right Ventricle Right ventricule not well visualized but appears grossly normal in size and systolic function. Left Atria Left atrial chamber dimension is normal. Right Atria Right atrial chamber dimension is normal. Aortic Valve Aortic valve not well visualized. There is no aortic stenosis or sclerosis. Pulmonic Valve The pulmonic valve is normal and not well visualized. Mitral Valve The mitral valve has normal leaflets. There is no mitral valve stenosis. There is no mitral valve regurgitation. Tricuspid Valve The tricuspid valve leaflets are normal. There is mild tricuspid valve regurgitation. Mild pulmonary hypertension, estimated pulmonary arterial systolic pressure is \R\45mmHg. Pericardium/Pleural The pericardium appears normal. There is no pericardial effusion. Inferior Vena Cava inferior vena cava is dilated and does not collapse with respiration (Pt on the vent). Aorta Not well visualized. Left Ventricular Outflow Tract Name Value Normal LVOT 2D LVOT Diameter 2.11 cm LVOT Doppler LVOT Peak Gradient 1 mmHg LVOT Mean Gradient 1 mmHg LVOT VTI 8.47 cm LVOT VTI/AV VTI Ratio 0.84 LVOT Stroke Volume 29.70 ml LVOT CO 2.82 l/min LVOT CI 1.44 L/min/m2 Pulmonic Valve Name Value
[2019-11-29] MEDS: MIDAZOLAM HCL 50 MG in DEXTROSE 5% 90 ML IV CONT ×2 (00:18→11:02)
--- NOTE | 2019-11-29 00:20 | P.PCNBED_ITS ---
Procedures Intubation: Intubation Date: 11/29/19 Intubation Time: 00:20 A pre- procedural Time-Out was completed immediately before starting the procedure and confirmed: Patient Identification, Site, Procedure, Patient Position and the Availability of Requisite Equipment: Yes Sedative: etomidate Mg given: 15 Paralytic: rocuronium Mg given: 50 Laryngoscope: Luis ET tube size: 8 Tube secured depth (cm): 24 Tube secured location: lips Tube placement confirmation: visualized tube passing through cords, equal breath sounds bilaterally, no breath sounds over epigastrium and confirmation by capnometry Patient tolerated procedure: well Intubation complications: none Additional comments: Date of service was 11/28/2019 23:30 hrs.
[2019-11-29] MEDS: SODIUM CHLORIDE 0.9% IV 1,000 ML 125 ML IV CONT (00:24)
--- NOTE | 2019-11-29 00:32 | ECG_ITS ---
Measurements Intervals [place] Rate: 185 P: NE: 0 QRS: 36 QRSD: 102 T: -4 QT: 238 QTc: 418 Interpretive Statements SINUS OR ECTOPIC ATRIAL TACHYCARDIA INCOMPLETE RIGHT BUNDLE BRANCH BLOCK NONSPECIFIC T-WAVE ABNORMALITY- INFERIOR LEADS ABNORMAL ECG Electronically Signed On 11-29-2019 8:58:37 PAPERHANGER SUPERVISOR by Lopez Machado D.O.
--- NOTE | 2019-11-29 00:56 | PM.EVENT ---
Event Note Event Note Event Note: CRITICAL CARE EVENT NOTE Patient suddenly went into SVT w/ a HR in the 180s-190s. I was called to bedside urgently. The patient was administered 6 mg of Adenosine IVP and then 12 mg of Adenosine IVP which did not get him out of his SVT. The patient was given 150 J of electricity via synchronized cardioversion and then 200 J of energy via synchronized cardioversion which also did not convert his rhythm. I have consulted Cardiology, Dr. Maldonado and discussed the case at length with him. EKG was obtained which demonstrated SVT. We will be starting Cardizem IVP and IV drip for rate control at this time. I will continue to reassess overnight as needed. Nursing called me to assess the patient as he was dropping his sats. Repeat ABG demonstrated hypoxemia. The patient appears to be fighting the vent is is still awake. I advised the patient's nurse that we will need to paralyze the patient and increase the patient's PEEP on the Vent. Plan was discussed with Annual Giving Officer, Dr. Gleason who was in agreement. Total Critical Care time overnight exceeded 38 minutes.
[2019-11-29] MEDS: ETOMIDATE 20 MG/10 ML AMPUL 15 MG IV PUSH (00:57)
[2019-11-29] MEDS: MIDAZOLAM HCL 2 MG/2 ML VIAL IV PUSH (00:57)
[2019-11-29] MEDS: ADENOSINE IV SOLN 6 MG/2 ML VIAL (00:58)
[2019-11-29] MEDS: ROCURONIUM BROMIDE 50 MG/5 ML VIAL IV PUSH ×2 (00:58→02:00)
[2019-11-29] MEDS: ADENOSINE IV SOLN 6 MG/2 ML VIAL 12 MG IV PUSH (01:04)
[2019-11-29] MEDS: IPRATROPIUM BR 0.02% INH SOLN 0.5 MG/2.5 ML VIAL INHALATION ×4 (01:39→20:39)
[2019-11-29 01:42] LABS: Alveolar/Arterial O2 Gradient 574.6 mmHg; Base Excess ABG -6.8 mEq/l (+/-2.0); Fractional Inspired Oxygen 100 %; HCO3 ABG 22.6 mEq/l (22.0-26.0); Oxygen Saturation ABG 91.8 % (95.0-100.0); Oxyhemoglobin 91.2 % THb (90.0-100.0); PO2 FiO2 Ratio Arterial Blood 0.77 %; Total Hemoglobin 15.6 g/dL (12.0-18.0)
[2019-11-29 01:44] LABS: Device VENTILATOR; Modified Allen's Test Pass; PCO2 ABG 61.4 mmHg (35.0-45.0); Site Drawn LEFT RADIAL; pH ABG 7.184 (7.350-7.450)
[2019-11-29 01:45] LABS: Arterial Blood Gas PEEP 10 cmH2O; Arterial Blood Gas Tidal Volume 500 ml; Arterial Blood Gas Vent Mode CMV; Arterial Blood Gas Ventilator rate 15 /MIN
[2019-11-29 04:52] LABS: Alveolar/Arterial O2 Gradient 537.2 mmHg; Arterial Blood Gas PEEP 12 cmH2O; Arterial Blood Gas Vent Mode CMV; Arterial Blood Gas Ventilator rate 15 /MIN; Carboxyhemoglobin 0.2 % THb (0-2.0); Device VENTILATOR; Fractional Inspired Oxygen 100 %; HCO3 ABG 23.7 mEq/l (22.0-26.0); Methemoglobin ABG 0.5 %THb (0-1.5); Modified Allen's Test Unable to perform; Oxygen Content ABG 19.4 %vol (16.0-22.0); Oxygen Saturation ABG 98.2 % (95.0-100.0); Oxyhemoglobin 97.2 % THb (90.0-100.0); PCO2 ABG 48.9 mmHg (35.0-45.0); PO2 ABG 126.9 mmHg (80.0-100.0); PO2 FiO2 Ratio Arterial Blood 1.27 %; Reduced Hemoglobin 2.1 %THb (0-5.0); Site Drawn RIGHT RADIAL; Total Hemoglobin 14.1 g/dL (12.0-18.0); pH ABG 7.304 (7.350-7.450)
[2019-11-29 04:53] LABS: Arterial Blood Gas Tidal Volume 500 ml
[2019-11-29 05:09] LABS: Basophils Absolute Auto 0.1 K/mm3 (0.0-0.1); Basophils Percent Auto 0.3 % (0.2-1.2); Hematocrit 40.7 % (42.0-52.0); Hemoglobin 13.1 g/dL (14.0-18.0); Immature Granulocyte Absolute 0.15 K/mm3 (0.00-0.031); Immature Granulocyte Percent A 0.8 % (0-0.5); Lymphocytes Absolute Auto 0.25 K/mm3 (0.9-3.2); Lymphocytes Percent Auto 1.4 % (18.3-44.2); Mean Corpuscular HGB Conc 32.2 g/dl (32-36); Mean Corpuscular Hemoglobin 31.5 pg (26-34); Mean Corpuscular Volume 97.8 fl (80-100); Mean Platelet Volume 11.2 fl (7.4-10.4); Monocytes Absolute Auto 0.6 K/mm3 (0.1-0.6); Monocytes Percent Auto 3.3 % (2.6-8.5); Neutrophils Percent Auto 94.2 % (45.5-73.1); Platelet Count Result 156 k/mm3 (150-375); Red Blood Count 4.16 M/mm3 (4.6-6.20); Red Cell Distribution Width 13.2 % (11.5-14.5)
[2019-11-29 05:18] LABS: Alanine Aminotransferase 36 U/L (4-50); Albumin Level 2.9 g/dL (3.5-5.1); Alkaline Phosphatase 106 U/L (38-126); Aspartate Amino Transferase 62 U/L (17-59); Bilirubin,Total 0.5 mg/dL (0.2-1.3); Blood Urea Nitrogen 21 mg/dL (9-20); Calcium 8.3 mg/dL (8.4-10.2); Carbon Dioxide 26 mmol/L (22-30); Chloride 99 mmol/L (98-107); Estimated CRCL calculation 69 ml/min; Estimated Glomerular Filt Rate > 60; Glucose 188 mg/dL (75-110); Magnesium 1.9 mg/dL (1.6-2.3); Potassium 4.7 mmol/L (3.4-5.0); Sodium 135 mmol/L (137-145)
[2019-11-29] MEDS: methylPREDNISolone SOD SUCC 125 MG VIAL 60 MG IV PUSH (05:22)
[2019-11-29 05:36] LABS: Partial Thromboplastin Time > 200.0 SECONDS (22.3-36.8)
[2019-11-29 05:53] LABS: Thyroid Stimulating Hormone Reflex 0.043 uIU/mL (0.465-4.68)
[2019-11-29] MEDS: BUDESONIDE RESPULE NEB 0.5 MG/2 ML AMP INHALATION ×2 (08:07→20:39)
[2019-11-29] MEDS: PERFLUTREN LIPID MICROSPHERES 1.5 ML VIAL DILUTED TO 10 ML TOTAL VOLUME IV PUSH (08:10)
--- NOTE | 2019-11-29 08:12 | PM.IMPN ---
Progress Note: A&P Assessment and Plan (1) Respiratory failure: Qualifiers: Chronicity: acute on chronic Respiratory failure complication: hypoxia Qualified Code(s): J96.21 - Acute and chronic respiratory failure with hypoxia Code(s): J96.90 - Respiratory failure, unspecified, unspecified whether with hypoxia or hypercapnia Status: Acute Assessment and Plan: Continue to support on vent Wean as possible (2) Acute respiratory distress syndrome (ARDS): Code(s): J80 - Acute respiratory distress syndrome Status: Acute Assessment and Plan: Continue to support with ARDS protocol (3) Pulmonary embolism: Qualifiers: Pulmonary embolism type: single subsegmental (without acute cor pulmonale) Qualified Code(s): I26.93 - Single subsegmental pulmonary embolism without acute cor pulmonale Code(s): I26.99 - Other pulmonary embolism without acute cor pulmonale Status: Acute Assessment and Plan: Continue heparin (4) Pneumonia: Qualifiers: Laterality: bilateral Lung location: unspecified part of lung Pneumonia type: due to unspecified organism Qualified Code(s): J18.9 - Pneumonia, unspecified organism Code(s): J18.9 - Pneumonia, unspecified organism Status: Acute Assessment and Plan: Vanc, azithromycin, cefepime Day 2 antibiotics (5) Lung cancer: Qualifiers: Laterality: unspecified laterality Lung location: unspecified part of lung Qualified Code(s): C34.90 - Malignant neoplasm of unspecified part of unspecified bronchus or lung Code(s): C34.90 - Malignant neoplasm of unspecified part of unspecified bronchus or lung Status: Chronic Assessment and Plan: NSCLC Currently not receiving chemotherapy (6) Chronic interstitial lung disease: Code(s): J84.9 - Interstitial pulmonary disease, unspecified Status: Chronic Assessment and Plan: 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 Subjective Date/time seen: 11/29/19 08:12 Interval history: Ventilator. Sedated. Review of Systems Review of Systems: ROS unobtainable: unobtainable due to endotracheal tube and unobtainable due to mental status Exam Narrative: Exam Narrative: HEENT: PERRL, sclearae nonicteric, mucous membranes pink and moist, ET tube in place NECK: No JVD CHEST: Coarse BS HEART: NL S1/S2, regular, no murmur ABDOMEN: BS+, soft, nontender, no mass, no bruits EXTREMITIES: No cyanosis, edema, or clubbing NEUROLOGIC: CN intact and symmetric to inspection. MUSCULOSKELETAL: Tone and strength symmetric. PSYCH: sedated Objective Data Vital Signs Vital Signs: Vital Signs - 24 hr 11/28/19 12:41 11/28/19 12:46 11/28/19 13:01 Temperature 99.6 F Pulse Rate 144 H 145 H Respiratory Rate 36 H 36 H Blood Pressure 140/71 Pulse Oximetry 97 65 L 11/28/19 13:36 11/28/19 15:51 11/28/19 15:55 Temperature Pulse Rate 133 H 126 H 124 H Respiratory Rate 33 H 35 H Blood Pressure 108/74 Pulse Oximetry 94 91 95 11/28/19 16:00 11/28/19 18:00 11/28/19 20:00 Temperature 98.8 F 98.7 F Pulse Rate 117 H 111 H 118 H Respiratory Rate 36 H 33 H 39 H Blood Pressure 138/112 H 109/85 137/104 H Pulse Oximetry 91 96 88 L 11/28/19 20:25 11/28/19 20:35 11/28/19 22:00 Temperature Pulse Rate 112 H 112 H 115 H Respiratory Rate 37 H 34 H 36 H Blood Pressure 141/88 H Pulse Oximetry 41 L 95 11/28/19 23:45 11/29/19 00:00 11/29/19 01:40 Temperature 98.2 F Pulse Ra
--- NOTE | 2019-11-29 09:16 | WPDCNINT ---
Assessment and Plan Assessment and plan (1) Respiratory failure: Qualifiers: Chronicity: acute on chronic Respiratory failure complication: hypoxia Qualified Code(s): J96.21 - Acute and chronic respiratory failure with hypoxia Code(s): J96.90 - Respiratory failure, unspecified, unspecified whether with hypoxia or hypercapnia Status: Acute Assessment and Plan: patient presented with shortness of breath likely related to pneumonia, pulmonary embolism, interstitial lung disease, lung cancer. Patient intubated on 11/28/2019 - chest x-ray and ABGs reviewed - CT PE protocol reviewed - tidal volume decreased to 6 mL/kg, will use low tidal volume strategy and high peep. FiO2 was started - continue cefepime, vancomycin and azithromycin - sputum cultures have been ordered - sedated with fentanyl, Versed. And was paralyzed with Nimbex as he was dyssynchronous with the ventilator and hypoxic. ABGs much improved on Nimbex. (2) Pulmonary embolism: Qualifiers: Pulmonary embolism type: single subsegmental (without acute cor pulmonale) Qualified Code(s): I26.93 - Single subsegmental pulmonary embolism without acute cor pulmonale Code(s): I26.99 - Other pulmonary embolism without acute cor pulmonale Status: Acute Assessment and Plan: CT PE protocol revealed subsegmental pulmonary embolism in the left lower lobe with small thrombus burden. - Continue heparin infusion (3) Pneumonia: Qualifiers: Laterality: bilateral Lung location: unspecified part of lung Pneumonia type: due to unspecified organism Qualified Code(s): J18.9 - Pneumonia, unspecified organism Code(s): J18.9 - Pneumonia, unspecified organism Status: Acute Assessment and Plan: mixed interstitial and airspace disease throughout both lungs which may represent a combination of pneumonia, metastatic disease, fibrosis, edema. - Continue antibiotics as above - continue bronchodilators (4) Lung cancer: Qualifiers: Laterality: unspecified laterality Lung location: unspecified part of lung Qualified Code(s): C34.90 - Malignant neoplasm of unspecified part of unspecified bronchus or lung Code(s): C34.90 - Malignant neoplasm of unspecified part of unspecified bronchus or lung Status: Chronic Assessment and Plan: according the it is a non-small cell lung cancer. 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 - Will start steroids, consult pulmonology here at [place] (6) Atrial fibrillation with RVR: Code(s): I48.91 - Unspecified atrial fibrillation Status: Acute Assessment and Plan: patient went to [facility] RVR overnight, cardiology was consulted and started patient on Cardizem infusion. Blood pressures have been low, Cardizem infusion. - Currently in sinus rhythm, appreciate Cardiology evaluation recommendation. (7) Essential (primary) hypertension: Code(s): I10 - Essential (primary) hypertension Status: Acute Assessment and Plan: Will hold all anti hypertensives at this time (8) DVT prophylaxis: Code(s): Z29.9 - Encounter for prophylactic measures, unspecified Status: Acute Assessment and Plan: DVT prophylaxis: heparin infusion stress ulcer prophylaxis: Protonix Additional Plan will discuss with when available Code status: Full code Critical care time spent: 44 minutes Due to a high probability of clinically significant, life threatening deterioration, the patient required my highest level of preparedness to intervene emergently and I personally spent this critical ca
[2019-11-29] MEDS: methylPREDNISolone SOD SUCC 125 MG VIAL IV PUSH (09:51)
--- NOTE | 2019-11-29 10:15 | PM.CNCAR ---
Assessment and Plan Assessment and plan (1) Atrial tachycardia: Code(s): I47.1 - Supraventricular tachycardia Status: Acute Assessment and Plan: In the setting of resp distress requiring intubation. Now on the vent his heart rate better and he converted to sinus rhythm Would d/c Cardizem as he is most recent BP was 85/50. Will follow 2D echo to rule out structural heart disease. Will start low dose Metoprolol once assure BP stablize (2) Lung cancer: Qualifiers: Laterality: unspecified laterality Lung location: unspecified part of lung Qualified Code(s): C34.90 - Malignant neoplasm of unspecified part of unspecified bronchus or lung Code(s): C34.90 - Malignant neoplasm of unspecified part of unspecified bronchus or lung Status: Chronic Assessment and Plan: Now with resp failure that appears multifactorial with lung cancer, pneumonia and PE. CT chest reproted changes consistent with edema vs pneumonia. He does not appear volume overloaded on exam. Would hold off diuresing at this point and follow clinically Will check echo to assess filling pressures and rule out cardiac etiology contributing to resp failure. (3) Pulmonary embolism: Qualifiers: Pulmonary embolism type: single subsegmental (without acute cor pulmonale) Qualified Code(s): I26.93 - Single subsegmental pulmonary embolism without acute cor pulmonale Code(s): I26.99 - Other pulmonary embolism without acute cor pulmonale Status: Acute Assessment and Plan: On IV heparin History of Present Illness History of Present Illness Consult date/time: 11/29/19 10:15 Patient at time of my evaluation was intubated. No family at bedside. History is her chart review 59 year old ex smoker with h/o chronic resp failure on supplemental oxygen at home, lung cancer s/p chemotherapy with possible brain mets s/p radiation. Patient was recently treated by his out patient saw setter with abx and steriods for worsening shortness of breath and presented to the hospital yesterday with ongoing symptoms and persistent hypoxia. He had CT chest with subsegmental left lower lobe PE as well as infiltrates attributed to edema vs pneumonia. He was intially started on BiPAP then eventually had to be intubated. Overnight he developed tachycardia with HR up to 180-190. He received adenosine as well as 2 attempts for cardioversion (150 J and 200 J) all were unsuccessful in terminating the tachycardia. Subsequently he was started on Cardizem drip. Currently his in sinus rhythm. Review of EKG from last night appears like SVT (Atiral tachycardia) Unclear if he had any prior known cardiac arrhythmia or cardiac disease. Reason For Visit: Sepsis/ARDS/PE/Respiratory failure Review of Systems Review of Systems: Narrative: Unable to obtain, patient is intubated. [facility] [place] Past Medical History Medical History (Updated 11/29/19 @ 10:29 by Bhavin Nicholson MD) BPH (benign prostatic hyperplasia) Chronic GERD Chronic interstitial lung disease GERD (gastroesophageal reflux disease) HTN (hypertension) Taken off of his medications. Lung cancer CT today shows persistent right upper lobe mass. Radiation chemotherapy treatment do summer and fall of 2018 On home O2 2 L Pneumonia Rheumatic fever At age 3 Surgical History Surgical History Hx of appendectomy Hx of arthroscopy of right knee Hx of cervical spine surgery Hx of tonsillectomy Family History Family History (Updated 11/28/19 @ 17:30 by Syl Zamudio NP) Father Lung disease Heart disease Mother Lung disease Heart disease Sibling Lung disease Social History Social History (Updated 11/28/19 @ 17:37 by Syl Zamudio NP) Social History: The patient is to [place]. Patient is a full code. 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 They have no children. The patient has been on able to work f
[2019-11-29] MEDS: PANTOPRAZOLE SODIUM IV 40 MG VIAL IV PUSH (10:30)
[2019-11-29 10:48] LABS: Glucose Point of Care 176 (65-105)
[2019-11-29 12:42] LABS: Free T4 Free Thyroxine Reflex 1.87 ng/dL (0.78-2.19)
[2019-11-29] MEDS: HEPARIN SOD/D5W 100 UNITS/ML 25,000 UNITS/250 ML BAG 18 UNITS IV CONT (13:07)
[2019-11-29 13:43] LABS: Total Triiodothyronine (T3) 0.87 NG/ML (0.97-1.69)
[2019-11-29 13:50] LABS: Partial Thromboplastin Time > 200.0 SECONDS (22.3-36.8)
[2019-11-29] MEDS: CENTRAL LINE FLUSH 10 ML IV PUSH ×2 (14:21→21:01)
[2019-11-29] MEDS: methylPREDNISolone SOD SUCC 40 MG VIAL IV PUSH ×2 (16:18→21:00)
[2019-11-29 18:39] LABS: Glucose Point of Care 163 (65-105)
[2019-11-29 21:26] LABS: Partial Thromboplastin Time > 200.0 SECONDS (22.3-36.8)
[2019-11-30] VITALS (36 sets, daily range): BP systolic 101–122; BP diastolic 64–78; PULSE 77–97; RESP 10–22; TEMP 35.9–36.8; O2SAT 92–99
[2019-11-30] MEDS: methylPREDNISolone SOD SUCC 40 MG VIAL IV PUSH ×4 (03:00→20:56)
[2019-11-30] MEDS: IPRATROPIUM BR 0.02% INH SOLN 0.5 MG/2.5 ML VIAL INHALATION ×4 (03:23→20:20)
[2019-11-30 04:44] LABS: Hematocrit 37.6 % (42.0-52.0); Hemoglobin 12.1 g/dL (14.0-18.0); Mean Corpuscular HGB Conc 32.2 g/dl (32-36); Mean Corpuscular Hemoglobin 31.2 pg (26-34); Mean Corpuscular Volume 96.9 fl (80-100); Mean Platelet Volume 10.9 fl (7.4-10.4); Platelet Count Result 157 k/mm3 (150-375); Red Blood Count 3.88 M/mm3 (4.6-6.20); Red Cell Distribution Width 13.1 % (11.5-14.5); White Blood Count 14.6 K/mm3 (4.5-10.0)
[2019-11-30 04:59] LABS: Partial Thromboplastin Time 104.6 SECONDS (22.3-36.8)
[2019-11-30 05:06] LABS: Blood Urea Nitrogen 24 mg/dL (9-20); Calcium 8.7 mg/dL (8.4-10.2); Carbon Dioxide 28 mmol/L (22-30); Chloride 99 mmol/L (98-107); Estimated CRCL calculation 63 ml/min; Estimated Glomerular Filt Rate > 60; Glucose 167 mg/dL (75-110); Magnesium 2.2 mg/dL (1.6-2.3); Phosphorus 3.4 mg/dL (2.5-4.5); Potassium 4.2 mmol/L (3.4-5.0); Sodium 135 mmol/L (137-145)
[2019-11-30] MEDS: CENTRAL LINE FLUSH 10 ML IV PUSH ×3 (05:21→20:56)
[2019-11-30 05:50] LABS: Alveolar/Arterial O2 Gradient 477.6 mmHg; Base Excess ABG -1.3 mEq/l (+/-2.0); Carboxyhemoglobin 0.3 % THb (0-2.0); Fractional Inspired Oxygen 90 %; HCO3 ABG 26.1 mEq/l (22.0-26.0); Methemoglobin ABG 0.4 %THb (0-1.5); Oxygen Content ABG 18.2 %vol (16.0-22.0); Oxygen Saturation ABG 97.3 % (95.0-100.0); Oxyhemoglobin 96.5 % THb (90.0-100.0); PCO2 ABG 55.7 mmHg (35.0-45.0); PO2 FiO2 Ratio Arterial Blood 1.19 %; Reduced Hemoglobin 2.8 %THb (0-5.0); Total Hemoglobin 13.3 g/dL (12.0-18.0)
[2019-11-30 05:51] LABS: Device VENTILATOR; Modified Allen's Test Unable to perform; Site Drawn RIGHT RADIAL; pH ABG 7.289 (7.350-7.450)
[2019-11-30 05:52] LABS: Arterial Blood Gas PEEP 12 cmH2O; Arterial Blood Gas Tidal Volume 400 ml; Arterial Blood Gas Vent Mode CMV; Arterial Blood Gas Ventilator rate 20 /MIN
[2019-11-30] MEDS: FINASTERIDE 5 MG TABLET PO (08:20)
[2019-11-30] MEDS: TAMSULOSIN HCL 0.4 MG CAPSULE PO (08:21)
[2019-11-30] MEDS: PANTOPRAZOLE SODIUM IV 40 MG VIAL IV PUSH (08:21)
[2019-11-30] MEDS: BUDESONIDE RESPULE NEB 0.5 MG/2 ML AMP INHALATION ×2 (08:49→20:20)
--- NOTE | 2019-11-30 08:57 | PM.IMPN ---
Progress Note: A&P Assessment and Plan (1) Respiratory failure: Qualifiers: Chronicity: acute on chronic Respiratory failure complication: hypoxia Qualified Code(s): J96.21 - Acute and chronic respiratory failure with hypoxia Code(s): J96.90 - Respiratory failure, unspecified, unspecified whether with hypoxia or hypercapnia Status: Acute Assessment and Plan: Continue to support on vent Wean as possible (2) Acute respiratory distress syndrome (ARDS): Code(s): J80 - Acute respiratory distress syndrome Status: Acute Assessment and Plan: Continue to support with ARDS protocol (3) Pulmonary embolism: Qualifiers: Pulmonary embolism type: single subsegmental (without acute cor pulmonale) Qualified Code(s): I26.93 - Single subsegmental pulmonary embolism without acute cor pulmonale Code(s): I26.99 - Other pulmonary embolism without acute cor pulmonale Status: Acute Assessment and Plan: Continue heparin (4) Pneumonia: Qualifiers: Laterality: bilateral Lung location: unspecified part of lung Pneumonia type: due to unspecified organism Qualified Code(s): J18.9 - Pneumonia, unspecified organism Code(s): J18.9 - Pneumonia, unspecified organism Status: Acute Assessment and Plan: Vanc, azithromycin, cefepime Day 3 antibiotics (5) Lung cancer: Qualifiers: Laterality: unspecified laterality Lung location: unspecified part of lung Qualified Code(s): C34.90 - Malignant neoplasm of unspecified part of unspecified bronchus or lung Code(s): C34.90 - Malignant neoplasm of unspecified part of unspecified bronchus or lung Status: Chronic Assessment and Plan: NSCLC Currently not receiving chemotherapy (6) Chronic interstitial lung disease: Code(s): J84.9 - Interstitial pulmonary disease, unspecified Status: Chronic Assessment and Plan: 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 Subjective Date/time seen: 11/30/19 08:57 Interval history: Ventilator. Sedated. Review of Systems Review of Systems: ROS unobtainable: unobtainable due to endotracheal tube and unobtainable due to mental status Exam Narrative: Exam Narrative: HEENT: PERRL, sclearae nonicteric, mucous membranes pink and moist, ET tube in place NECK: No JVD CHEST: Coarse BS HEART: NL S1/S2, regular, no murmur ABDOMEN: BS+, soft, nontender, no mass, no bruits EXTREMITIES: No cyanosis, edema, or clubbing NEUROLOGIC: CN intact and symmetric to inspection. MUSCULOSKELETAL: Tone and strength symmetric. PSYCH: sedated Objective Data Vital Signs Vital Signs: Vital Signs - 24 hr 11/29/19 10:00 11/29/19 11:48 11/29/19 12:00 Temperature 98.5 F 97.8 F Pulse Rate 85 86 85 Respiratory Rate 20 20 Blood Pressure 88/73 L 93/72 L Pulse Oximetry 95 95 95 11/29/19 14:00 11/29/19 14:35 11/29/19 14:36 Temperature Pulse Rate 86 85 87 Respiratory Rate 20 20 Blood Pressure 87/73 L Pulse Oximetry 95 95 11/29/19 14:50 11/29/19 16:00 11/29/19 17:46 Temperature 97.7 F Pulse Rate 90 85 83 Respiratory Rate 20 20 Blood Pressure 90/72 L Pulse Oximetry 95 95 11/29/19 18:00 11/29/19 19:57 11/29/19 20:00 Temperature 97.4 F L 97.5 F L Pulse Rate 82 84 Respiratory Rate 20 20 Blood Pressure 89/66 L 96/68 L Pulse Oximetry 94 95 95 11/29/19 20:30 11/29/19 20:40 11/29/19 20:50 Temperature Pulse Rate 85 85 85 Respiratory Rate 20 20 Blood Pressure
--- NOTE | 2019-11-30 09:35 | PM.PNCARD ---
Progress Note: A&P Assessment and Plan (1) Atrial tachycardia: Code(s): I47.1 - Supraventricular tachycardia Status: Acute Assessment and Plan: In the setting of resp distress. Now on the vent his heart rate better and he converted to sinus rhythm 2D echo with normal EF and no significant valvular disease. Pulmonary HTN noted, expected with resp failure and high oxygen requirements Will hold off starting BB given his resp status. If any recurrence of arrhythmia may start low dose. Currently he remains in normal sinus rhythm (2) Lung cancer: Qualifiers: Laterality: unspecified laterality Lung location: unspecified part of lung Qualified Code(s): C34.90 - Malignant neoplasm of unspecified part of unspecified bronchus or lung Code(s): C34.90 - Malignant neoplasm of unspecified part of unspecified bronchus or lung Status: Chronic Assessment and Plan: Now with resp failure that appears multifactorial with lung cancer, pneumonia and PE. CT chest reproted changes consistent with edema vs pneumonia. He does not appear volume overloaded on exam. Echo with normal EF and no significant valvular disease. Okay to use PRN low dose diuretics if needed to assist with extubation however resp failure appears moslty related to lung disease rather than cardiac disease . (3) Pulmonary embolism: Qualifiers: Pulmonary embolism type: single subsegmental (without acute cor pulmonale) Qualified Code(s): I26.93 - Single subsegmental pulmonary embolism without acute cor pulmonale Code(s): I26.99 - Other pulmonary embolism without acute cor pulmonale Status: Acute Assessment and Plan: Small PE noted on CT. AC per primary team. Subjective Date/time seen: 11/30/19 09:35 Sedated and intubated. High oxygen requirements but coming down. Now on 80% Fio2 Hemodynamically stable. No recurrence of tachycardia on tele monitor Review of Systems Review of Systems: Narrative: Unable to obtain. Exam Narrative: Exam Narrative: Sedated and intubated. Const: General: no acute distress Eyes: Sclera: sclerae normal Neck: Neck: no JVD Carotids: no bruits Resp: Auscultation: diminished lung sounds Cardio: Rate: regular rate and not tachycardic Rhythm: regular rhythm Heart sounds: no gallops, no murmurs and no rubs Skin: General skin exam: normal color Neuro: Cranial nerves: Yes Normal hearing present Other: Sedated on the vent Extrem: General: no edema Objective Data Vital Signs Vital Signs: Vital Signs - 24 hr 11/29/19 10:00 11/29/19 11:48 11/29/19 12:00 Temperature 36.9 C 36.6 C Pulse Rate 85 86 85 Respiratory Rate 20 20 Blood Pressure 88/73 L 93/72 L Pulse Oximetry 95 95 95 11/29/19 14:00 11/29/19 14:35 11/29/19 14:36 Temperature Pulse Rate 86 85 87 Respiratory Rate 20 20 Blood Pressure 87/73 L Pulse Oximetry 95 95 11/29/19 14:50 11/29/19 16:00 11/29/19 17:46 Temperature 36.5 C Pulse Rate 90 85 83 Respiratory Rate 20 20 Blood Pressure 90/72 L Pulse Oximetry 95 95 11/29/19 18:00 11/29/19 19:57 11/29/19 20:00 Temperature 36.3 C L 36.4 C L Pulse Rate 82 84 Respiratory Rate 20 20 Blood Pressure 89/66 L 96/68 L Pulse Oximetry 94 95 95 11/29/19 20:30 11/29/19 20:40 11/29/19 20:50 Temperature Pulse Rate 85 85 85 Respiratory Rate 20 20 Blood Pressure Pulse Oximetry 96 11/29/19 21:00 11/29/19 22:00 11/29/19 23:00 Temperature 36.4 C L Pulse Rate 87 86 86 Respiratory Rate 20 20 20 Blood Pressure 93/72 L 94/72 L 102/73 Pulse Oximetry 96 97 96 11/29/19 23:30 11/30/19 00:00 11/30/19 01:00 Temperature 36.4 C L Pulse Rate 86 86 87 Respiratory Rate 20 20 Blood Pressure 101/74 103/72 Pulse Oximetry 96 96 94 11/30/19 02:00 11/30/19 02:30 11/30/19 03:00 Temperature Pulse Rate 87 87 87 Respiratory Rate 20 20 Blood Pressure 103/73 104/68 Pulse Oximetry 94 95 95 11/30/19 03:24
--- NOTE | 2019-11-30 10:52 | PCDIET ---
ICU Rounding Note: Pt current nutrition is Vital 1.5 at 10ml/hr. Nutrition recommendation: Agree Last recorded weight is 83.7kg (up from 81.9kg yesterday Bowel Motility:no bm (hypoactive bowel sounds per chart) Labs Reviewed:Glucose 167, Na 135 Meds Noted:Solumedrol, Versed at 2, Fentanyl at 50 Additional Notes: Skin intake, making good urine, I/O balance of +209ml today. MD agrees to start trickle feeds of Vital 1.5 at 10ml/hr advancing q 6 hrs to day one goal of 20ml/hr. At goal today, over 22hrs, EN will provide 660kcals, 30% of patient's nutrition needs. Recommend advancing EN tomorrow as tolerated and if medically appropriate. Following daily in ICU rounds. Assessing/reassessing every T/F.
[2019-11-30] MEDS: MIDAZOLAM HCL 50 MG in DEXTROSE 5% 90 ML IV CONT (12:04)
[2019-11-30] MEDS: HEPARIN SOD/D5W 100 UNITS/ML 25,000 UNITS/250 ML BAG 9 UNITS IV CONT (12:09)
[2019-11-30 12:36] LABS: Partial Thromboplastin Time 86.4 SECONDS (22.3-36.8)
--- NOTE | 2019-11-30 13:51 | WPDINTPN ---
Progress Note: A&P Assessment and Plan (1) Respiratory failure: Qualifiers: Chronicity: acute on chronic Respiratory failure complication: hypoxia Qualified Code(s): J96.21 - Acute and chronic respiratory failure with hypoxia Code(s): J96.90 - Respiratory failure, unspecified, unspecified whether with hypoxia or hypercapnia Status: Acute Assessment and Plan: patient presented with shortness of breath likely related to pneumonia, pulmonary embolism, interstitial lung disease, lung cancer. Patient intubated on 11/28/2019 - chest x-ray and ABGs reviewed - CT PE protocol reviewed - continue low tidal volume strategy and high peep. will start weaning FiO2, ventilator adjusted - continue cefepime, vancomycin and azithromycin - sputum cultures have been ordered - sedated with fentanyl, Versed. And was paralyzed with Nimbex as he was dyssynchronous with the ventilator and hypoxic. ABGs much improved on Nimbex. (2) Pulmonary embolism: Qualifiers: Pulmonary embolism type: single subsegmental (without acute cor pulmonale) Qualified Code(s): I26.93 - Single subsegmental pulmonary embolism without acute cor pulmonale Code(s): I26.99 - Other pulmonary embolism without acute cor pulmonale Status: Acute Assessment and Plan: CT PE protocol revealed subsegmental pulmonary embolism in the left lower lobe with small thrombus burden. - Continue heparin infusion (3) Pneumonia: Qualifiers: Laterality: bilateral Lung location: unspecified part of lung Pneumonia type: due to unspecified organism Qualified Code(s): J18.9 - Pneumonia, unspecified organism Code(s): J18.9 - Pneumonia, unspecified organism Status: Acute Assessment and Plan: mixed interstitial and airspace disease throughout both lungs which may represent a combination of pneumonia, metastatic disease, fibrosis, edema. - Continue antibiotics as above - continue bronchodilators (4) Lung cancer: Qualifiers: Laterality: unspecified laterality Lung location: unspecified part of lung Qualified Code(s): C34.90 - Malignant neoplasm of unspecified part of unspecified bronchus or lung Code(s): C34.90 - Malignant neoplasm of unspecified part of unspecified bronchus or lung Status: Chronic Assessment and Plan: according the it is a non-small cell lung cancer. patient has received chemotherapy and radiation between last summer and fall per records (5) Chronic interstitial lung disease: Code(s): J84.9 - Interstitial pulmonary disease, unspecified Status: Chronic Assessment and Plan: patient with history of interstitial lung disease, follows with Dr. Paulie Evans, pile trimmer. - continue steroids, consult pulmonology here at [facility] (6) Atrial fibrillation with RVR: Code(s): I48.91 - Unspecified atrial fibrillation Status: Acute Assessment and Plan: on admission patient was in AFib RVR and was started on Cardizem per Cardiology, blood pressures were borderline so Cardizem infusion was discontinued on 11/29/2019. - AFib most likely related to respiratory distress and hypoxemia - Currently in sinus rhythm, appreciate Cardiology evaluation recommendation. - echocardiogram on 11/29/2019 showed LV systolic function to be normal estimated at 50-55%. Mild pulmonary hypertension with RVSP of 45 mmHg, no mitral valve regurg. Right ventricle size and function grossly normal. - Appreciate Cardiology evaluation and recommendation (7) Essential (primary) hypertension: Code(s): I10 - Essential (primary) hypertension Status: Acute Assessment and Plan: Will hold all anti hypertensives at this time (8) DVT prophylaxis: Code(s): Z29.9 - Encounter for prophylactic measures, unspecified Status: Acute Assessment and Plan: DVT prophylaxis: heparin infusion stress ulcer prop
--- NOTE | 2019-11-30 17:48 | PM.CNPUL ---
Assessment and Plan Assessment and plan (1) Respiratory failure: Qualifiers: Chronicity: acute on chronic Respiratory failure complication: hypoxia and hypercapnia Qualified Code(s): J96.21 - Acute and chronic respiratory failure with hypoxia; J96.22 - Acute and chronic respiratory failure with hypercapnia Code(s): J96.90 - Respiratory failure, unspecified, unspecified whether with hypoxia or hypercapnia Status: Acute Assessment and Plan: Acute on chronic hypoxemic resp failure intubated 11/28/2019 Started O2 at 2 L/min 2-[address] Jesus Evans' office with low O2 saturation; now on low TV strategy with permissive hypercapnea to protect from ventilator induced lung injury. 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 Kc and Dr. Helio Calvo, [facility] in [place], [place] Reviewed note from 08/08/[address] Lavelle Jacinto; this is in the real 3 ring chart in the nurse's station. (3) Chronic interstitial lung disease: Code(s): J84.9 - Interstitial pulmonary disease, unspecified Status: Chronic Assessment and Plan: Per his Carina he knew this diagnosis with honeycombing on the CT scan and clubbing when he stopped smoking December 2017 a year before cancer diagnosis; had UIP pattern on CT 08/29/2019; not on Rx. (4) Pulmonary embolism: Onset Date: ~11/2019 Qualifiers: Pulmonary embolism type: single subsegmental (without acute cor pulmonale) Qualified Code(s): I26.93 - Single subsegmental pulmonary embolism without acute cor pulmonale Code(s): I26.99 - Other pulmonary embolism without acute cor pulmonale Status: Acute Assessment and Plan: subsegmental PE with small thrombus burden to vessel, LLL found on CTA 11/28/2019, now on heparin drip (5) Pneumonia: Qualifiers: Laterality: bilateral Lung location: unspecified part of lung Pneumonia type: due to unspecified organism Qualified Code(s): J18.9 - Pneumonia, unspecified organism Code(s): J18.9 - Pneumonia, unspecified organism Status: Acute Assessment and Plan: Was on antibiotics prior to admission, Cipro and pred taper x 3, had WBC 19K on admission. CT suggests increased infiltrates, may reflect pulmonary edema v infiltrates; he is now on broad coverage with vanco, cefepime, azithromycin; no (+) cultures; will check CRP / procalcitonin. It will be a challenging task to discern if he has an active infection, and he is on empiric treatment with improvement in his WBC, now 14 decreased from 19 K. He is immunosuppressed with lung cancer, has ILD, COPD, had several abtics prior to admission. (6) Pulmonary hypertension: Code(s): I27.20 - Pulmonary hypertension, unspecified Status: Acute Assessment and Plan: secondary to lung disease, hypoxemia; recent echo Mar 2 = RVSP 45 mmHg. History of Present Illness History of Present Illness Consult date: 11/30/19 Requesting physician: Chino Gleason MD Chief compla
[2019-11-30 20:46] LABS: Vancomycin Trough 12.9 ug/mL (10.0-20.0)
--- NOTE | 2019-11-30 23:26 | CONS_ITS ---
DATE OF CONSULTATION: 11/30/2019 REASON FOR THE CONSULTATION: Dr. Gleason consulted me to see the patient for acute respiratory failure, lung cancer, ARDS, interstitial lung disease. HISTORY: This patient is a 59-year-old male, history is obtained from the electronic record, Dr. Gleason, and the patient's . He has been a long-time smoker, quit in 2017, when he was diagnosed with interstitial lung disease. He has been followed by Dr. Jesus Evans at [facility] in [place]. He was diagnosed with small-cell lung cancer limited stage in December 2018. He underwent chemoradiation with prophylactic cranial irradiation in May 2019. He has had problems with recurrent infections in the last month or so before being admitted here. He was on 3 rounds of Cipro and a prednisone taper with each antibiotic for several weeks prior to this admission. He also was in Dr. Evans' office with low oxygen saturation and was started on portable oxygen 2 L a minute 2 weeks prior to this admission. His oxygen saturation at home was around 87% on supplemental oxygen, which is the reason his insisted that he come to the hospital. He presented on November 27, complaining of lower saturation for a few days, increasing shortness of breath, and a cough with epistaxis. He had no fever or sputum production. His white blood cell count was 19.2 with a left shift, 89% neutrophils. His chest x-ray showed extensive bilateral airspace disease. He underwent a CTA of his chest showing a subsegmental pulmonary embolus in the left lower lobe with a small thrombus burden, progression of his interstitial lung disease and airspace disease throughout both lungs which could represent pneumonia, pulmonary edema, metastatic disease and/or fibrosis. He has had progression of bronchiectasis/honeycombing throughout both lungs. He has a persistent right upper lobe mass without significant change. The mass was 2.2 x 0.8 cm in the anterior segment of the right upper lobe seen on a CT scan August 29, 2019, so 3 months ago. He deteriorated and required intubation on November 27, around 11:[address] Mesa. After intubation, the patient went into a supraventricular tachycardia with a rate in the 190s even after the intubation, and for this reason, he was given neuromuscular blockade, which he is still on at this time. He is not on pressors. The patient was on high level of oxygen support and over the course of the day, November 29, he is down to 60%, 12 of PEEP with a low tidal volume strategy to avoid ventilator induced lung injury. He was initially on some Cardizem with the SVT, but his blood pressure was decreased at 85/50. He did convert to sinus rhythm. He did receive adenosine and 2 attempts for cardioversion at 150 joules and 200 joules, which were unsuccessful. After the Cardizem, he converted to sinus rhythm. ALLERGIES: ADHESIVE BANDAGES, BACITRACIN, GRAMICIDIN D, NEOMYCIN, PENICILLINS, POLYMYXIN B. HOME MEDICATIONS: Tylenol p.r.n. pain or fever, docusate 100 mg p.r.n. constipation, finasteride 5 mg a day, Trelegy 1 puff daily, prednisone 10 mg daily, tamsulosin 0.4 mg daily. PAST MEDICAL HISTORY: 1. Hypertension. 2. Limited stage small-cell lung cancer diagnosed in December 2018, treated with chemoradiation to the right upper lung and mediastinum, with 60 Gy to the right upper lung, completed 04/13/2019 and 25 Gy PCI completed on 06/24/2019 prophylactically to his brain. 3. Interstitial lung disease. The patient has a prior CT of the chest 08/29/2019, demonstrating the right upper lobe nodule 2.2 x 0.8 cm, stable compared to 05/19/2019, as well as chronic interstitial lung disease in a pattern of usual interstitial pneumonia (UIP). 4. Emphysema. 5. Chronic gastroesophageal reflux disease. 6. Benign prostatic hypertrophy. 7. Rheumatic fev
[2019-12-01] VITALS (29 sets, daily range): BP systolic 94–126; BP diastolic 63–80; PULSE 80–95; RESP 22; TEMP 36.3–36.8; O2SAT 90–96
[2019-12-01] MEDS: IPRATROPIUM BR 0.02% INH SOLN 0.5 MG/2.5 ML VIAL INHALATION ×4 (01:50→20:54)
[2019-12-01] MEDS: methylPREDNISolone SOD SUCC 40 MG VIAL IV PUSH ×2 (03:52→09:19)
[2019-12-01 04:45] LABS: Hematocrit 34.8 % (42.0-52.0); Hemoglobin 11.4 g/dL (14.0-18.0); Mean Corpuscular HGB Conc 32.8 g/dl (32-36); Mean Corpuscular Hemoglobin 31.7 pg (26-34); Mean Corpuscular Volume 96.7 fl (80-100); Mean Platelet Volume 10.8 fl (7.4-10.4); Platelet Count Result 141 k/mm3 (150-375); Red Cell Distribution Width 12.9 % (11.5-14.5); White Blood Count 14.6 K/mm3 (4.5-10.0)
[2019-12-01 04:55] LABS: Partial Thromboplastin Time 60.6 SECONDS (22.3-36.8)
[2019-12-01 05:01] LABS: Blood Urea Nitrogen 33 mg/dL (9-20); CRP 8.6 mg/dL (<1.0); Calcium 8.8 mg/dL (8.4-10.2); Carbon Dioxide 31 mmol/L (22-30); Chloride 97 mmol/L (98-107); Estimated CRCL calculation 63 ml/min; Estimated Glomerular Filt Rate > 60; Glucose 162 mg/dL (75-110); Magnesium 2.4 mg/dL (1.6-2.3); Phosphorus 3.3 mg/dL (2.5-4.5); Sodium 135 mmol/L (137-145)
[2019-12-01 05:05] LABS: Alveolar/Arterial O2 Gradient 255.3 mmHg; Base Excess ABG 2.3 mEq/l (+/-2.0); Carboxyhemoglobin 0.3 % THb (0-2.0); Fractional Inspired Oxygen 55 %; HCO3 ABG 29.5 mEq/l (22.0-26.0); Methemoglobin ABG 0.4 %THb (0-1.5); Oxygen Content ABG 16.7 %vol (16.0-22.0); Oxygen Saturation ABG 93.1 % (95.0-100.0); Oxyhemoglobin 92.6 % THb (90.0-100.0); PCO2 ABG 58.1 mmHg (35.0-45.0); PO2 ABG 72.2 mmHg (80.0-100.0); PO2 FiO2 Ratio Arterial Blood 1.31 %; Reduced Hemoglobin 6.7 %THb (0-5.0); Total Hemoglobin 12.8 g/dL (12.0-18.0); pH ABG 7.324 (7.350-7.450)
[2019-12-01 05:06] LABS: Arterial Blood Gas Ventilator rate 22 /MIN; Device VENTILATOR; Modified Allen's Test Pass; Site Drawn RIGHT RADIAL
[2019-12-01 05:07] LABS: Arterial Blood Gas PEEP 12 cmH2O; Arterial Blood Gas Tidal Volume 400 ml; Arterial Blood Gas Vent Mode CMV
[2019-12-01] MEDS: HEPARIN SODIUM 5,000 UNITS/ML VIAL 3500 UNITS IV PUSH ×2 (05:28→21:39)
[2019-12-01] MEDS: CENTRAL LINE FLUSH 10 ML IV PUSH ×3 (05:35→20:28)
[2019-12-01] MEDS: BUDESONIDE RESPULE NEB 0.5 MG/2 ML AMP INHALATION ×2 (08:20→20:54)
--- NOTE | 2019-12-01 09:07 | PM.IMPN ---
Progress Note: A&P Assessment and Plan (1) Respiratory failure: Qualifiers: Chronicity: acute on chronic Respiratory failure complication: hypoxia and hypercapnia Qualified Code(s): J96.21 - Acute and chronic respiratory failure with hypoxia; J96.22 - Acute and chronic respiratory failure with hypercapnia Code(s): J96.90 - Respiratory failure, unspecified, unspecified whether with hypoxia or hypercapnia Status: Acute Assessment and Plan: Continue to support on vent FIO2 down to 55% Wean as possible (2) Acute respiratory distress syndrome (ARDS): Code(s): J80 - Acute respiratory distress syndrome Status: Acute Assessment and Plan: Continue to support with ARDS protocol (3) Pulmonary embolism: Onset Date: ~11/2019 Qualifiers: Pulmonary embolism type: single subsegmental (without acute cor pulmonale) Qualified Code(s): I26.93 - Single subsegmental pulmonary embolism without acute cor pulmonale Code(s): I26.99 - Other pulmonary embolism without acute cor pulmonale Status: Acute Assessment and Plan: Continue heparin (4) Pneumonia: Qualifiers: Laterality: bilateral Lung location: unspecified part of lung Pneumonia type: due to unspecified organism Qualified Code(s): J18.9 - Pneumonia, unspecified organism Code(s): J18.9 - Pneumonia, unspecified organism Status: Acute Assessment and Plan: Vanc, azithromycin, cefepime Day 4 antibiotics (5) Lung cancer: Qualifiers: Laterality: right Lung location: upper lobe of lung Qualified Code(s): C34.11 - Malignant neoplasm of upper lobe, right bronchus or lung Code(s): C34.90 - Malignant neoplasm of unspecified part of unspecified bronchus or lung Status: Chronic Assessment and Plan: NSCLC Currently not receiving chemotherapy (6) Chronic interstitial lung disease: Code(s): J84.9 - Interstitial pulmonary disease, unspecified Status: Chronic 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 Subjective Date/time seen: 12/01/19 09:07 Interval history: Ventilator. Sedated. Review of Systems Review of Systems: ROS unobtainable: unobtainable due to endotracheal tube and unobtainable due to mental status Exam Narrative: Exam Narrative: HEENT: PERRL, sclearae nonicteric, mucous membranes pink and moist, ET tube in place NECK: No JVD CHEST: Coarse BS HEART: NL S1/S2, regular, no murmur ABDOMEN: BS+, soft, nontender, no mass, no bruits EXTREMITIES: No cyanosis, edema, or clubbing NEUROLOGIC: CN intact and symmetric to inspection. MUSCULOSKELETAL: Tone and strength symmetric. PSYCH: sedated Objective Data Vital Signs Vital Signs: Vital Signs - 24 hr 11/30/19 10:00 11/30/19 10:02 11/30/19 11:00 Temperature 97.6 F 97.5 F L Pulse Rate 81 85 80 Respiratory Rate 22 H 22 H Blood Pressure 110/76 109/75 Pulse Oximetry 97 97 11/30/19 12:00 11/30/19 12:50 11/30/19 13:00 Temperature 97.5 F L 97.2 F L Pulse Rate 81 82 80 Respiratory Rate 22 H 22 H Blood Pressure 106/75 115/74 Pulse Oximetry 97 98 97 11/30/19 14:00 11/30/19 14:48 11/30/19 14:49 Temperature 97.4 F L Pulse Rate 77 77 77 Respiratory Rate 22 H 22 H Blood Pressure 116/75 Pulse Oximetry 98 97 11/30/19 15:00 11/30/19 16:00 11/30/19 17:02 Temperature 97.5 F L 97.8 F 97.6 F Pulse Rate 86 86 87 Respiratory Rate 22 H 22 H 22 H Blood Pressure 117/75 120/75 118/78 Pulse Oximet
--- NOTE | 2019-12-01 09:18 | WPDINTPN ---
Progress Note: A&P Assessment and Plan (1) Respiratory failure: Qualifiers: Chronicity: acute on chronic Respiratory failure complication: hypoxia and hypercapnia Qualified Code(s): J96.21 - Acute and chronic respiratory failure with hypoxia; J96.22 - Acute and chronic respiratory failure with hypercapnia Code(s): J96.90 - Respiratory failure, unspecified, unspecified whether with hypoxia or hypercapnia Status: Acute Assessment and Plan: patient presented with shortness of breath likely related to pneumonia, pulmonary embolism, interstitial lung disease, lung cancer. Patient intubated on 11/28/2019 - chest x-ray with slight improvement, ABGs are acceptable - CT PE protocol reviewed - continue low tidal volume strategy and high peep. weaning FiO2, ventilator adjusted - continue cefepime, vancomycin and azithromycin - sputum cultures have been ordered and pending - sedated with fentanyl, Versed. And was paralyzed with Nimbex as he was dyssynchronous with the ventilator and hypoxic. will try and wean Nimbex today (2) Pulmonary embolism: Onset Date: ~11/2019 Qualifiers: Pulmonary embolism type: single subsegmental (without acute cor pulmonale) Qualified Code(s): I26.93 - Single subsegmental pulmonary embolism without acute cor pulmonale Code(s): I26.99 - Other pulmonary embolism without acute cor pulmonale Status: Acute Assessment and Plan: CT PE protocol revealed subsegmental pulmonary embolism in the left lower lobe with small thrombus burden. - Continue heparin infusion (3) Pneumonia: Qualifiers: Laterality: bilateral Lung location: unspecified part of lung Pneumonia type: due to unspecified organism Qualified Code(s): J18.9 - Pneumonia, unspecified organism Code(s): J18.9 - Pneumonia, unspecified organism Status: Acute Assessment and Plan: mixed interstitial and airspace disease throughout both lungs which may represent a combination of pneumonia, metastatic disease, fibrosis, edema. - Continue antibiotics as above - continue bronchodilators (4) Lung cancer: Qualifiers: Laterality: right Lung location: upper lobe of lung Qualified Code(s): C34.11 - Malignant neoplasm of upper lobe, right bronchus or lung Code(s): C34.90 - Malignant neoplasm of unspecified part of unspecified bronchus or lung Status: Chronic Assessment and Plan: according the it is a non-small cell lung cancer. 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 - continue steroids, - appreciate pulmonology evaluation and recommendation (6) Atrial fibrillation with RVR: Code(s): I48.91 - Unspecified atrial fibrillation Status: Acute Assessment and Plan: on admission patient was in AFib RVR and was started on Cardizem per Cardiology, blood pressures were borderline so Cardizem infusion was discontinued on 11/29/2019. - AFib most likely related to respiratory distress and hypoxemia - Currently in sinus rhythm, appreciate Cardiology evaluation recommendation. - echocardiogram on 11/29/2019 showed LV systolic function to be normal estimated at 50-55%. Mild pulmonary hypertension with RVSP of 45 mmHg, no mitral valve regurg. Right ventricle size and function grossly normal. - Appreciate Cardiology evaluation and recommendation (7) Essential (primary) hypertension: Code(s): I10 - Essential (primary) hypertension Status: Acute Assessment and Plan: Will hold all anti hypertensives at this time blood pressures are stable (8) DVT prophylaxis: Code(s): Z29.9 - Encounte
[2019-12-01] MEDS: PANTOPRAZOLE SODIUM IV 40 MG VIAL IV PUSH (09:19)
[2019-12-01] MEDS: TAMSULOSIN HCL 0.4 MG CAPSULE PO (09:19)
[2019-12-01] MEDS: FINASTERIDE 5 MG TABLET PO (09:19)
--- NOTE | 2019-12-01 11:17 | PCDIET ---
ICU Rounding Note: Pt current nutrition is Vital 1.5@20ml/hr. Nutrition recommendation: Agree Last recorded weight is 83.4 kg, up from admit Bowel Motility: Day four of no BM, colace not given Labs Reviewed: Hgb 11.4, Hct 34.8, Na 135, BUN 33, Glucose 162, PO4 normal at 3.4, C reactive 8.6, Mg 2.4 Meds Noted:Fentanyl, Nibex, Versed Additional Notes: Pt oxygen improved and down to 55%. C reactive down to 8.6 from 15 so inflammation trending down. On trickle feeds of Vital 1.5@ 20ml/hr. Residual of 175ml this am. Pt on Nimbix and weaning off. Will hold EN at 20ml/hr today and try to advance EN tomorrow. Goal is Vital 1.5 at 65ml/hr to provide 2145kcals and 96 g protein. Following daily in ICU rounds. Assessing/reassessing q T/F.
[2019-12-01] MEDS: MIDAZOLAM HCL 2 MG/2 ML VIAL (12:30)
[2019-12-01 13:06] LABS: Partial Thromboplastin Time 108.7 SECONDS (22.3-36.8)
[2019-12-01] MEDS: PROPOFOL IV EMULSION 100 ML 2.5 MG IV CONT (13:29)
--- NOTE | 2019-12-01 15:52 | PM.PNPUL ---
Progress Note: A&P Assessment and Plan (1) Acute respiratory distress syndrome (ARDS): Code(s): J80 - Acute respiratory distress syndrome Status: Acute Assessment and Plan: agree with low tidal volume strategy, current at 400 ml, peak airway pressures were 31 cm H20, making the plateau likely less than 30. (2) ILD (interstitial lung disease): Code(s): J84.9 - Interstitial pulmonary disease, unspecified Status: Acute Assessment and Plan: This may be IPF exacerbation which is very lethal. - will try pulse dose steroid by increasing solumedrol to 125 mg IV Q6h for 5 days then discontinue (3) Pneumonia: Qualifiers: Laterality: bilateral Lung location: unspecified part of lung Pneumonia type: due to unspecified organism Qualified Code(s): J18.9 - Pneumonia, unspecified organism Code(s): J18.9 - Pneumonia, unspecified organism Status: Acute Assessment and Plan: -Agree with curren antibiotic regimen. WBC is decreasing. - concomittentant viral infection is unknown but less likely given response to antibiotics Time Spent With Patient Time with patient: 25 - 35 minutes Subjective Date/time seen: 12/01/19 15:52 Interval history: Patient with possible UIP/IPF pattern on CT chest from August 2019 presents with acute hypoxemic respiratory failure and diffuse multilobar pneumonia in the RUL mostly. He is currently on Cefepime, Azithromycin and Vancomycin and on low tidal volume strategy for ARDS with decreasing leukocytosis and improving PaO2/FiO2 ratio Review of Systems Review of Systems: All systems reviewed & are unremarkable except as noted in HPI and below Exam Narrative: Exam Narrative: Intubated and sedated Const: General: comfortable and no acute distress HENMT: Mouth: Yes moist mucous membranes Neck: Neck: supple and no JVD Resp: Auscultation: no crackles, no rales, no rhonchi, no wheezes and diminished lung sounds Cardio: Rate: regular rate Rhythm: regular rhythm GI: Auscultation: normal bowel sounds Skin: General skin exam: normal color and no rashes or lesions noted Extrem: General: normal to inspection, no edema and no pedal edema Objective Data Vital Signs Vital Signs: Vital Signs - 24 hr 11/30/19 16:00 11/30/19 17:02 11/30/19 17:57 Temperature 36.6 C 36.4 C Pulse Rate 86 87 85 Respiratory Rate 22 H 22 H Blood Pressure 120/75 118/78 Pulse Oximetry 95 96 96 11/30/19 18:00 11/30/19 19:00 11/30/19 20:00 Temperature 36.6 C 36.4 C 36.4 C L Pulse Rate 92 90 89 Respiratory Rate 22 H 10 L 22 H Blood Pressure 121/77 120/71 114/71 Pulse Oximetry 92 95 96 11/30/19 20:20 11/30/19 20:28 11/30/19 21:00 Temperature Pulse Rate 89 93 97 Respiratory Rate 22 H 22 H 22 H Blood Pressure 122/64 Pulse Oximetry 94 95 11/30/19 22:00 11/30/19 23:00 11/30/19 23:15 Temperature Pulse Rate 92 89 92 Respiratory Rate 22 H 22 H Blood Pressure 119/71 115/72 Pulse Oximetry 96 95 94 12/01/19 00:00 12/01/19 01:00 12/01/19 01:50 Temperature 36.4 C L Pulse Rate 89 90 90 Respiratory Rate 22 H 22 H 22 H Blood Pressure 118/77 117/71 Pulse Oximetry 95 95 12/01/19 02:00 12/01/19 02:01 12/01/19 03:00 Temperature Pulse Rate 90 91 95 Respiratory Rate 22 H 22 H 22 H Blood Pressure 118/73 119/70 Pulse Oximetry 95 95 12/01/19 04:00 12/01/19 04:45 12/01/19 05:00 Temperature 36.3 C L Pulse Rate 92 84 87 Respiratory Rate 22 H 22 H Blood Pressure 126/75 116/77 Pulse Oximetry 92 93 93 12/01/19 06:00 12/01/19 07:00 12/01/19 08:20 Temperature Pulse Rate 84 88 84 Respiratory Rate 22 H 22 H 22 H Blood Pressure 126/78 123/77 Pulse Oximetry 94 94 94 12/01/19 08:28 Temperature Pulse Rate 89 Respiratory Rate 22 H Blood Pressure Pulse Oximetry Intake/Output Intake/Output: Intake & Output 11/28/19 11/29/19 11/30/19 12/01/19 23:59 23:59 23:59 23:59 Intake Total 3650 1975.3 1648 89
[2019-12-01] MEDS: HEPARIN SOD/D5W 100 UNITS/ML 25,000 UNITS/250 ML BAG 9 UNITS IV CONT (17:28)
[2019-12-01] MEDS: MIDAZOLAM HCL 50 MG in DEXTROSE 5% 90 ML 12 MG IV CONT ×2 (17:36→20:29)
[2019-12-01] MEDS: methylPREDNISolone SOD SUCC 125 MG VIAL IV PUSH (17:40)
[2019-12-01 18:12] LABS: Triglycerides 154 mg/dL (<150)
[2019-12-01 21:08] LABS: Partial Thromboplastin Time 56.7 SECONDS (22.3-36.8)
[2019-12-02] VITALS (32 sets, daily range): BP systolic 98–128; BP diastolic 60–78; PULSE 72–93; RESP 16–23; TEMP 36.5–36.8; O2SAT 92–97
[2019-12-02] MEDS: methylPREDNISolone SOD SUCC 125 MG VIAL IV PUSH ×5 (00:50→22:05)
[2019-12-02] MEDS: IPRATROPIUM BR 0.02% INH SOLN 0.5 MG/2.5 ML VIAL INHALATION ×4 (02:45→20:19)
[2019-12-02 04:44] LABS: Hematocrit 33.8 % (42.0-52.0); Hemoglobin 10.9 g/dL (14.0-18.0); Mean Corpuscular HGB Conc 32.2 g/dl (32-36); Mean Corpuscular Hemoglobin 31.4 pg (26-34); Mean Corpuscular Volume 97.4 fl (80-100); Mean Platelet Volume 11.5 fl (7.4-10.4); Platelet Count Result 143 k/mm3 (150-375); Red Blood Count 3.47 M/mm3 (4.6-6.20); Red Cell Distribution Width 13.1 % (11.5-14.5)
[2019-12-02 04:54] LABS: Blood Urea Nitrogen 43 mg/dL (9-20); Calcium 8.7 mg/dL (8.4-10.2); Carbon Dioxide 34 mmol/L (22-30); Chloride 103 mmol/L (98-107); Estimated CRCL calculation 69 ml/min; Estimated Glomerular Filt Rate > 60; Glucose 150 mg/dL (75-110); Magnesium 2.5 mg/dL (1.6-2.3); Partial Thromboplastin Time 114.3 SECONDS (22.3-36.8); Phosphorus 3.5 mg/dL (2.5-4.5); Potassium 4.5 mmol/L (3.4-5.0); Sodium 137 mmol/L (137-145)
[2019-12-02 05:04] LABS: Alveolar/Arterial O2 Gradient 293.8 mmHg; Base Excess ABG 3.9 mEq/l (+/-2.0); Carboxyhemoglobin 0.3 % THb (0-2.0); Device VENTILATOR; Fractional Inspired Oxygen 65 %; HCO3 ABG 30.7 mEq/l (22.0-26.0); Methemoglobin ABG 0.4 %THb (0-1.5); Modified Allen's Test Pass; Oxygen Content ABG 17.3 %vol (16.0-22.0); Oxygen Saturation ABG 97.7 % (95.0-100.0); Oxyhemoglobin 96.6 % THb (90.0-100.0); PCO2 ABG 55.9 mmHg (35.0-45.0); PO2 ABG 108.9 mmHg (80.0-100.0); PO2 FiO2 Ratio Arterial Blood 1.68 %; Reduced Hemoglobin 2.7 %THb (0-5.0); Site Drawn LEFT RADIAL; Total Hemoglobin 12.6 g/dL (12.0-18.0); pH ABG 7.357 (7.350-7.450)
[2019-12-02 05:05] LABS: Arterial Blood Gas PEEP 12 cmH2O; Arterial Blood Gas Tidal Volume 400 ml; Arterial Blood Gas Vent Mode CMV; Arterial Blood Gas Ventilator rate 22 /MIN
[2019-12-02] MEDS: CENTRAL LINE FLUSH 10 ML IV PUSH ×3 (05:53→22:05)
[2019-12-02] MEDS: PROPOFOL IV EMULSION 100 ML 2.5 MG IV CONT ×2 (05:53→18:23)
[2019-12-02] MEDS: MIDAZOLAM HCL 50 MG in DEXTROSE 5% 90 ML 8 MG IV CONT (07:24)
[2019-12-02] MEDS: FINASTERIDE 5 MG TABLET PO (09:25)
[2019-12-02] MEDS: TAMSULOSIN HCL 0.4 MG CAPSULE PO (09:25)
[2019-12-02] MEDS: PANTOPRAZOLE SODIUM IV 40 MG VIAL IV PUSH (09:26)
--- NOTE | 2019-12-02 09:35 | PM.IMPN ---
Progress Note: A&P Assessment and Plan (1) Respiratory failure: Qualifiers: Chronicity: acute on chronic Respiratory failure complication: hypoxia and hypercapnia Qualified Code(s): J96.21 - Acute and chronic respiratory failure with hypoxia; J96.22 - Acute and chronic respiratory failure with hypercapnia Code(s): J96.90 - Respiratory failure, unspecified, unspecified whether with hypoxia or hypercapnia Status: Acute Assessment and Plan: Continue to support on vent FIO2 down to 55% Wean as possible (2) Acute respiratory distress syndrome (ARDS): Code(s): J80 - Acute respiratory distress syndrome Status: Acute Assessment and Plan: Continue to support with ARDS protocol (3) Pulmonary embolism: Onset Date: ~11/2019 Qualifiers: Pulmonary embolism type: single subsegmental (without acute cor pulmonale) Qualified Code(s): I26.93 - Single subsegmental pulmonary embolism without acute cor pulmonale Code(s): I26.99 - Other pulmonary embolism without acute cor pulmonale Status: Acute Assessment and Plan: Continue heparin (4) Pneumonia: Qualifiers: Laterality: bilateral Lung location: unspecified part of lung Pneumonia type: due to unspecified organism Qualified Code(s): J18.9 - Pneumonia, unspecified organism Code(s): J18.9 - Pneumonia, unspecified organism Status: Acute Assessment and Plan: Vanc, azithromycin, cefepime Day 5 antibiotics (5) Lung cancer: Qualifiers: Laterality: right Lung location: upper lobe of lung Qualified Code(s): C34.11 - Malignant neoplasm of upper lobe, right bronchus or lung Code(s): C34.90 - Malignant neoplasm of unspecified part of unspecified bronchus or lung Status: Chronic Assessment and Plan: NSCLC Currently not receiving chemotherapy (6) Chronic interstitial lung disease: Code(s): J84.9 - Interstitial pulmonary disease, unspecified Status: Chronic Assessment and Plan: 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 Subjective Date/time seen: 12/02/19 09:35 Interval history: Ventilator. Sedated. Review of Systems Review of Systems: ROS unobtainable: unobtainable due to endotracheal tube Exam Narrative: Exam Narrative: HEENT: PERRL, sclearae nonicteric, mucous membranes pink and moist, ET tube in place NECK: No JVD CHEST: Coarse BS HEART: NL S1/S2, regular, no murmur ABDOMEN: BS+, soft, nontender, no mass, no bruits EXTREMITIES: No cyanosis, edema, or clubbing NEUROLOGIC: CN intact and symmetric to inspection. MUSCULOSKELETAL: Tone and strength symmetric. PSYCH: sedated Objective Data Vital Signs Vital Signs: Vital Signs - 24 hr 12/01/19 10:00 12/01/19 11:15 12/01/19 12:00 Temperature 97.4 F L Pulse Rate 88 83 85 Respiratory Rate 22 H 22 H Blood Pressure 119/77 125/80 Pulse Oximetry 94 94 92 12/01/19 14:00 12/01/19 14:15 12/01/19 14:25 Temperature Pulse Rate 87 84 88 Respiratory Rate 22 H 22 H 22 H Blood Pressure 105/71 Pulse Oximetry 94 95 12/01/19 16:00 12/01/19 17:45 12/01/19 18:00 Temperature 98.0 F Pulse Rate 86 84 86 Respiratory Rate 22 H 22 H Blood Pressure 102/71 106/71 Pulse Oximetry 93 95 94 12/01/19 20:00 12/01/19 20:17 12/01/19 20:59 Temperature 98.0 F Pulse Rate 90 95 92 Respiratory Rate 22 H 22 H 22 H Blood Pressure 113/70 Pulse Oximetry 90 12/01/19 21:01 12/01/19 22:00 12/01/19 23:30 Temp
--- NOTE | 2019-12-02 09:41 | WPDINTPN ---
Progress Note: A&P Assessment and Plan (1) Respiratory failure: Qualifiers: Chronicity: acute on chronic Respiratory failure complication: hypoxia and hypercapnia Qualified Code(s): J96.21 - Acute and chronic respiratory failure with hypoxia; J96.22 - Acute and chronic respiratory failure with hypercapnia Code(s): J96.90 - Respiratory failure, unspecified, unspecified whether with hypoxia or hypercapnia Status: Acute Assessment and Plan: patient presented with shortness of breath likely related to pneumonia, pulmonary embolism, interstitial lung disease, lung cancer. Patient intubated on 11/28/2019 - chest x-ray with slight improvement, ABGs are acceptable - continue low tidal volume strategy and high peep. weaning FiO2, ventilator adjusted - continue cefepime, vancomycin and azithromycin - sputum cultures have been ordered and pending - sedated with fentanyl, Versed, propofol. OFF Nimbex (2) Pulmonary embolism: Onset Date: ~11/2019 Qualifiers: Pulmonary embolism type: single subsegmental (without acute cor pulmonale) Qualified Code(s): I26.93 - Single subsegmental pulmonary embolism without acute cor pulmonale Code(s): I26.99 - Other pulmonary embolism without acute cor pulmonale Status: Acute Assessment and Plan: CT PE protocol revealed subsegmental pulmonary embolism in the left lower lobe with small thrombus burden. - Continue heparin infusion (3) Pneumonia: Qualifiers: Laterality: bilateral Lung location: unspecified part of lung Pneumonia type: due to unspecified organism Qualified Code(s): J18.9 - Pneumonia, unspecified organism Code(s): J18.9 - Pneumonia, unspecified organism Status: Acute Assessment and Plan: mixed interstitial and airspace disease throughout both lungs which may represent a combination of pneumonia, metastatic disease, fibrosis, edema. - Continue antibiotics as above - continue bronchodilators (4) Lung cancer: Qualifiers: Laterality: right Lung location: upper lobe of lung Qualified Code(s): C34.11 - Malignant neoplasm of upper lobe, right bronchus or lung Code(s): C34.90 - Malignant neoplasm of unspecified part of unspecified bronchus or lung Status: Chronic Assessment and Plan: according the it is a non-small cell lung cancer. patient has received chemotherapy and radiation between last summer and fall per records (5) Chronic interstitial lung disease: Code(s): J84.9 - Interstitial pulmonary disease, unspecified Status: Chronic Assessment and Plan: patient with history of interstitial lung disease, follows with Dr. 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 - continue steroids, - appreciate pulmonology evaluation and recommendation - Pt on high dose steroids for 5 days started on 12/01/2019 per pulmonology (6) Atrial fibrillation with RVR: Code(s): I48.91 - Unspecified atrial fibrillation Status: Acute Assessment and Plan: on admission patient was in AFib RVR and was started on Cardizem per Cardiology, blood pressures were borderline so Cardizem infusion was discontinued on 11/29/2019. - AFib most likely related to respiratory distress and hypoxemia - Currently in sinus rhythm, appreciate Cardiology evaluation recommendation. - echocardiogram on 11/29/2019 showed LV systolic function to be normal estimated at 50-55%. Mild pulmonary hypertension with RVSP of 45 mmHg, no mitral valve regurg. Right ventricle size and function grossly normal. - Appreciate Cardiology evaluation and recommendation (7) Essential (primary) hypertension: Code(s): I10 - Essential (primary) hypertension Status: Acute Assessment and Plan: Will hold all anti hypertensives at this time blood pressures are stable (8) DVT prophylaxis: Code(s): Z29.9 - Encounter for prophylactic measures, unspecified Stat
[2019-12-02] MEDS: BUDESONIDE RESPULE NEB 0.5 MG/2 ML AMP INHALATION ×2 (10:00→20:19)
--- NOTE | 2019-12-02 10:40 | PCDIET ---
Nutrition Follow-Up Complete: Nutrition Diagnosis: Increased nutrient needs related to increased protein demands as evidenced by estimated needs of 98-115 grams of protein daily. Nutrition Goal: Total intake will meet estimated kcal and protein needs Goal in progress. Patient has tolerated Vital 1.5 at 20mL/hr with residuals 110mL and below. MD ordered increase to 30mL/hr at this time, then, if tolerated, increase to 40mL/hr later today. Last recorded weight is 81.4 kg which is decreased, despite +I/O. Bowel Motility: No documented bowel movement. Bowel sounds hypoactive. Labs Reviewed: Glu (150), BUN (43), TG (154), Hgb (10.9), Hct (33.8) Meds Noted: Vancomycin, Cefepime, Colace (prn), Fentanyl, Atrovent, Solu Medrol, Versed, Protonix, Propofol (infusing at 2.5mL/hr which provides 66kcal over 24 hour period) Additional Notes: No reported skin breakdown. Agree with MD order with goal of 65mL/hr over the next 24-48 hours. Recommend additional medication to promote bowel movement, if needed/medically appropriate. Nutrition Monitoring and Evaluation: Follow up every Thursday/Thursday. Follow daily in ICU rounds.
[2019-12-02 10:50] LABS: Partial Thromboplastin Time 53.8 SECONDS (22.3-36.8)
[2019-12-02] MEDS: HEPARIN SODIUM 5,000 UNITS/ML VIAL 6500 UNITS IV PUSH (11:24)
[2019-12-02 13:52] LABS: Glucose Point of Care 176 (65-105)
[2019-12-02 14:24] LABS: Triglycerides 117 mg/dL (<150)
--- NOTE | 2019-12-02 16:32 | PM.PNPUL ---
Progress Note: A&P Assessment and Plan (1) Acute respiratory distress syndrome (ARDS): Code(s): J80 - Acute respiratory distress syndrome Status: Acute Assessment and Plan: agree with low tidal volume strategy, current at 400 ml, peak airway pressures were 31 cm H20, making the plateau likely less than 30. (2) ILD (interstitial lung disease): Code(s): J84.9 - Interstitial pulmonary disease, unspecified Status: Acute Assessment and Plan: This may be IPF exacerbation which is very lethal. - continue pulse dose steroid by increasing solumedrol to 125 mg IV Q6h for 5 days then discontinue (3) Pneumonia: Qualifiers: Laterality: bilateral Lung location: unspecified part of lung Pneumonia type: due to unspecified organism Qualified Code(s): J18.9 - Pneumonia, unspecified organism Code(s): J18.9 - Pneumonia, unspecified organism Status: Acute Assessment and Plan: -Agree with curren antibiotic regimen. WBC is decreasing. - concomittentant viral infection is unknown but less likely given response to antibiotics Subjective Date/time seen: 12/02/19 16:32 Interval history: Patient with possible UIP/IPF pattern on CT chest from August 2019 presents with acute hypoxemic respiratory failure and diffuse multilobar pneumonia in the RUL mostly. He is currently on Cefepime, Azithromycin and Vancomycin and on low tidal volume strategy for ARDS with decreasing leukocytosis and improving PaO2/FiO2 ratio Review of Systems Review of Systems: All systems reviewed & are unremarkable except as noted in HPI and below Exam Narrative: Exam Narrative: Intubated and sedated Const: General: comfortable and no acute distress HENMT: Mouth: Yes moist mucous membranes Neck: Neck: supple and no JVD Resp: Auscultation: no crackles, no rales, no rhonchi, no wheezes and diminished lung sounds Cardio: Rate: regular rate Rhythm: regular rhythm GI: Auscultation: normal bowel sounds Skin: General skin exam: normal color and no rashes or lesions noted Extrem: General: normal to inspection, no edema and no pedal edema Objective Data Vital Signs Vital Signs: Vital Signs - 24 hr 12/01/19 17:45 12/01/19 18:00 12/01/19 20:00 Temperature 36.7 C Pulse Rate 84 86 90 Respiratory Rate 22 H 22 H Blood Pressure 106/71 113/70 Pulse Oximetry 95 94 90 12/01/19 20:17 12/01/19 20:59 12/01/19 21:01 Temperature Pulse Rate 95 92 92 Respiratory Rate 22 H 22 H Blood Pressure Pulse Oximetry 96 12/01/19 22:00 12/01/19 23:30 12/02/19 00:00 Temperature 36.6 C Pulse Rate 94 80 83 Respiratory Rate 22 H 22 H Blood Pressure 94/63 L 102/69 Pulse Oximetry 95 95 95 12/02/19 02:00 12/02/19 02:01 12/02/19 02:45 Temperature Pulse Rate 78 78 80 Respiratory Rate 22 H 22 H Blood Pressure 109/67 Pulse Oximetry 94 95 12/02/19 02:48 12/02/19 02:49 12/02/19 02:58 Temperature Pulse Rate 80 80 79 Respiratory Rate 22 H 22 H Blood Pressure Pulse Oximetry 95 12/02/19 03:00 12/02/19 03:01 12/02/19 03:15 Temperature Pulse Rate 78 81 82 Respiratory Rate 22 H 22 H 22 H Blood Pressure 104/69 Pulse Oximetry 95 95 95 12/02/19 04:00 12/02/19 04:56 12/02/19 06:00 Temperature 36.8 C Pulse Rate 78 79 74 Respiratory Rate 22 H 22 H Blood Pressure 100/66 109/70 Pulse Oximetry 95 94 95 12/02/19 08:00 12/02/19 10:00 12/02/19 10:04 Temperature Pulse Rate 75 77 78 Respiratory Rate 22 H 22 H Blood Pressure 108/68 Pulse Oximetry 97 94 12/02/19 10:12 12/02/19 11:47 12/02/19 12:00 Temperature Pulse Rate 73 77 74 Respiratory Rate 22 H 22 H Blood Pressure 108/66 Pulse Oximetry 94 12/02/19 12:21 12/02/19 15:38 12/02/19 15:46 Temperature Pulse Rate 74 77 84 Respiratory Rate 22 H 22 H Blood Pressure Pulse Oximetry 96 Intake/Output Intake/Output: Intake & Output 11/29/19 11/30/19 12/01/19
--- NOTE | 2019-12-02 16:53 | PM.PNCARD ---
Progress Note: A&P Assessment and Plan (1) Atrial tachycardia: Code(s): I47.1 - Supraventricular tachycardia Status: Acute Assessment and Plan: In the setting of resp distress. Now in normal sinus rhythm 2D echo with normal EF and no significant valvular disease. No recurrence of arrhythmia Will sign off. Please don't hesitate to call with any questions. (2) Lung cancer: Qualifiers: Laterality: right Lung location: upper lobe of lung Qualified Code(s): C34.11 - Malignant neoplasm of upper lobe, right bronchus or lung Code(s): C34.90 - Malignant neoplasm of unspecified part of unspecified bronchus or lung Status: Chronic Assessment and Plan: Now with resp failure that appears multifactorial with lung cancer, pneumonia and PE. (3) Pulmonary embolism: Onset Date: ~11/2019 Qualifiers: Pulmonary embolism type: single subsegmental (without acute cor pulmonale) Qualified Code(s): I26.93 - Single subsegmental pulmonary embolism without acute cor pulmonale Code(s): I26.99 - Other pulmonary embolism without acute cor pulmonale Status: Acute Assessment and Plan: Small PE noted on CT. AC per primary team. Subjective Date/time seen: 12/02/19 16:53 Remains sedated and intubated. Review of Systems Review of Systems: Narrative: Unable to obtain. Exam Narrative: Exam Narrative: Sedated and intubated. Const: General: no acute distress Eyes: Sclera: sclerae normal Neck: Neck: no JVD Carotids: no bruits Resp: Auscultation: diminished lung sounds Cardio: Rate: regular rate and not tachycardic Rhythm: regular rhythm Heart sounds: no gallops, no murmurs and no rubs Skin: General skin exam: normal color Neuro: Cranial nerves: Yes Normal hearing present Other: Sedated on the vent Extrem: General: no edema Objective Data Vital Signs Vital Signs: Vital Signs - 24 hr 12/01/19 17:45 12/01/19 18:00 12/01/19 20:00 Temperature 36.7 C Pulse Rate 84 86 90 Respiratory Rate 22 H 22 H Blood Pressure 106/71 113/70 Pulse Oximetry 95 94 90 12/01/19 20:17 12/01/19 20:59 12/01/19 21:01 Temperature Pulse Rate 95 92 92 Respiratory Rate 22 H 22 H Blood Pressure Pulse Oximetry 96 12/01/19 22:00 12/01/19 23:30 12/02/19 00:00 Temperature 36.6 C Pulse Rate 94 80 83 Respiratory Rate 22 H 22 H Blood Pressure 94/63 L 102/69 Pulse Oximetry 95 95 95 12/02/19 02:00 12/02/19 02:01 12/02/19 02:45 Temperature Pulse Rate 78 78 80 Respiratory Rate 22 H 22 H Blood Pressure 109/67 Pulse Oximetry 94 95 12/02/19 02:48 12/02/19 02:49 12/02/19 02:58 Temperature Pulse Rate 80 80 79 Respiratory Rate 22 H 22 H Blood Pressure Pulse Oximetry 95 12/02/19 03:00 12/02/19 03:01 12/02/19 03:15 Temperature Pulse Rate 78 81 82 Respiratory Rate 22 H 22 H 22 H Blood Pressure 104/69 Pulse Oximetry 95 95 95 12/02/19 04:00 12/02/19 04:56 12/02/19 06:00 Temperature 36.8 C Pulse Rate 78 79 74 Respiratory Rate 22 H 22 H Blood Pressure 100/66 109/70 Pulse Oximetry 95 94 95 12/02/19 08:00 12/02/19 10:00 12/02/19 10:04 Temperature Pulse Rate 75 77 78 Respiratory Rate 22 H 22 H Blood Pressure 108/68 Pulse Oximetry 97 94 12/02/19 10:12 12/02/19 11:47 12/02/19 12:00 Temperature Pulse Rate 73 77 74 Respiratory Rate 22 H 22 H Blood Pressure 108/66 Pulse Oximetry 94 12/02/19 12:21 12/02/19 15:38 12/02/19 15:46 Temperature Pulse Rate 74 77 84 Respiratory Rate 22 H 22 H Blood Pressure Pulse Oximetry 96 Intake/Output Intake/Output: Intake & Output 11/29/19 11/30/19 12/01/19 12/02/19 23:59 23:59 23:59 23:59 Intake Total 1975.3 1648 2039 1210 Output Total 1755 1510 1120 1325 Balance 220.3 138 919 -115 Meds/Results Medications: Active Medications Generic Name Dose Route Start Last Admin Trade Name Freq PRN Reason Stop Dose
[2019-12-02 18:16] LABS: Partial Thromboplastin Time > 200.0 SECONDS (22.3-36.8)
[2019-12-02 19:01] LABS: Glucose Point of Care 111 (65-105)
[2019-12-02] MEDS: HEPARIN SOD FLUSH 500 UNITS/5 ML SYRINGE IV PUSH (19:30)
[2019-12-02] MEDS: MIDAZOLAM HCL 50 MG in DEXTROSE 5% 90 ML IV CONT (21:59)
[2019-12-02] MEDS: HEPARIN SOD/D5W 100 UNITS/ML 25,000 UNITS/250 ML BAG 10 UNITS IV CONT (22:01)
[2019-12-03] VITALS (36 sets, daily range): BP systolic 100–140; BP diastolic 56–86; PULSE 73–110; RESP 14–24; TEMP 36.3–37; O2SAT 91–98
[2019-12-03] MEDS: IPRATROPIUM BR 0.02% INH SOLN 0.5 MG/2.5 ML VIAL INHALATION ×4 (01:15→20:19)
[2019-12-03 01:23] LABS: Glucose Point of Care 157 (65-105)
[2019-12-03 03:10] LABS: Alveolar/Arterial O2 Gradient 230.2 mmHg; Fractional Inspired Oxygen 50 %; HCO3 ABG 30.2 mEq/l (22.0-26.0); Methemoglobin ABG 0.4 %THb (0-1.5); Oxygen Content ABG 16.1 %vol (16.0-22.0); Oxygen Saturation ABG 92.8 % (95.0-100.0); Oxyhemoglobin 92.1 % THb (90.0-100.0); PCO2 ABG 52.4 mmHg (35.0-45.0); PO2 ABG 67.4 mmHg (80.0-100.0); PO2 FiO2 Ratio Arterial Blood 1.35 %; Reduced Hemoglobin 7.5 %THb (0-5.0); Total Hemoglobin 12.4 g/dL (12.0-18.0); pH ABG 7.378 (7.350-7.450)
[2019-12-03 03:11] LABS: Device VENTILATOR; Modified Allen's Test Pass; Site Drawn RIGHT RADIAL
[2019-12-03 03:12] LABS: Arterial Blood Gas PEEP 12 cmH2O; Arterial Blood Gas Tidal Volume 400 ml; Arterial Blood Gas Vent Mode CMV; Arterial Blood Gas Ventilator rate 22 /MIN
[2019-12-03 03:44] LABS: Vancomycin Trough 17.7 ug/mL (10.0-20.0)
[2019-12-03 04:49] LABS: Hematocrit 34.4 % (42.0-52.0); Hemoglobin 11.2 g/dL (14.0-18.0); Immature Platelet Fraction Pct 8.1 % (0.9-11.2); Mean Corpuscular HGB Conc 32.6 g/dl (32-36); Mean Corpuscular Hemoglobin 31.4 pg (26-34); Mean Corpuscular Volume 96.4 fl (80-100); Mean Platelet Volume 11.5 fl (7.4-10.4); Platelet Count Result 133 k/mm3 (150-375); Red Blood Count 3.57 M/mm3 (4.6-6.20); Red Cell Distribution Width 13.2 % (11.5-14.5); White Blood Count 13.8 K/mm3 (4.5-10.0)
[2019-12-03 05:01] LABS: Blood Urea Nitrogen 52 mg/dL (9-20); Calcium 8.7 mg/dL (8.4-10.2); Carbon Dioxide 34 mmol/L (22-30); Chloride 101 mmol/L (98-107); Estimated CRCL calculation 69 ml/min; Estimated Glomerular Filt Rate > 60; Glucose 197 mg/dL (75-110); Magnesium 2.6 mg/dL (1.6-2.3); Phosphorus 3.2 mg/dL (2.5-4.5); Potassium 4.1 mmol/L (3.4-5.0); Sodium 137 mmol/L (137-145)
[2019-12-03] MEDS: CENTRAL LINE FLUSH 10 ML IV PUSH ×2 (06:20→20:33)
[2019-12-03] MEDS: methylPREDNISolone SOD SUCC 125 MG VIAL IV PUSH ×3 (06:20→17:37)
--- NOTE | 2019-12-03 08:29 | WPDINTPN ---
Progress Note: A&P Assessment and Plan (1) Respiratory failure: Qualifiers: Chronicity: acute on chronic Respiratory failure complication: hypoxia and hypercapnia Qualified Code(s): J96.21 - Acute and chronic respiratory failure with hypoxia; J96.22 - Acute and chronic respiratory failure with hypercapnia Code(s): J96.90 - Respiratory failure, unspecified, unspecified whether with hypoxia or hypercapnia Status: Acute Assessment and Plan: patient presented with shortness of breath likely related to pneumonia, pulmonary embolism, interstitial lung disease, lung cancer. Patient intubated on 11/28/2019 - chest x-ray with slight improvement, ABGs are acceptable - continue low tidal volume strategy and high peep. 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 OFF Nimbex (2) Pulmonary embolism: Onset Date: ~11/2019 Qualifiers: Pulmonary embolism type: single subsegmental (without acute cor pulmonale) Qualified Code(s): I26.93 - Single subsegmental pulmonary embolism without acute cor pulmonale Code(s): I26.99 - Other pulmonary embolism without acute cor pulmonale Status: Acute Assessment and Plan: CT PE protocol revealed subsegmental pulmonary embolism in the left lower lobe with small thrombus burden. - Continue heparin infusion (3) Pneumonia: Qualifiers: Laterality: bilateral Lung location: unspecified part of lung Pneumonia type: due to unspecified organism Qualified Code(s): J18.9 - Pneumonia, unspecified organism Code(s): J18.9 - Pneumonia, unspecified organism Status: Acute Assessment and Plan: mixed interstitial and airspace disease throughout both lungs which may represent a combination of pneumonia, metastatic disease, fibrosis, edema. - Continue antibiotics as above - continue bronchodilators - patient is thick secretions in ETT, will add Pulmozyme (4) Lung cancer: Qualifiers: Laterality: right Lung location: upper lobe of lung Qualified Code(s): C34.11 - Malignant neoplasm of upper lobe, right bronchus or lung Code(s): C34.90 - Malignant neoplasm of unspecified part of unspecified bronchus or lung Status: Chronic Assessment and Plan: according the it is a non-small cell lung cancer. patient has received chemotherapy and radiation between last summer and fall per records (5) Chronic interstitial lung disease: Code(s): J84.9 - Interstitial pulmonary disease, unspecified Status: Chronic Assessment and Plan: patient with history of interstitial lung disease, follows with Dr. Paulie Evans, storm sash maker. - continue steroids, - appreciate pulmonology evaluation and recommendation - Pt on high dose steroids for 5 days started on 12/01/2019 per pulmonology (6) Atrial fibrillation with RVR: Code(s): I48.91 - Unspecified atrial fibrillation Status: Acute Assessment and Plan: on admission patient was in AFib RVR and was started on Cardizem per Cardiology, blood pressures were borderline so Cardizem infusion was discontinued on 11/29/2019. - AFib most likely related to respiratory distress and hypoxemia - Currently in sinus rhythm, appreciate Cardiology evaluation recommendation. - echocardiogram on 11/29/2019 showed LV systolic function to be normal estimated at 50-55%. Mild pulmonary hypertension with RVSP of 45 mmHg, no mitral valve regurg. Right ventricle size and function grossly normal. - Appreciate Cardiology evaluation and recommendation (7) Essential (primary) hypertension: Code(s): I10 - Essential (primary) hypertension Status: Acute Assessment and Plan: Will hold all anti hypertensives at this time blood pressures are stable (8)
[2019-12-03] MEDS: BUDESONIDE RESPULE NEB 0.5 MG/2 ML AMP INHALATION ×2 (08:42→20:19)
--- NOTE | 2019-12-03 08:54 | PM.IMPN ---
Progress Note: A&P Assessment and Plan (1) Respiratory failure: Qualifiers: Chronicity: acute on chronic Respiratory failure complication: hypoxia and hypercapnia Qualified Code(s): J96.21 - Acute and chronic respiratory failure with hypoxia; J96.22 - Acute and chronic respiratory failure with hypercapnia Code(s): J96.90 - Respiratory failure, unspecified, unspecified whether with hypoxia or hypercapnia Status: Acute Assessment and Plan: Continue to support on vent FIO2 down to 50% Wean as possible (2) Acute respiratory distress syndrome (ARDS): Code(s): J80 - Acute respiratory distress syndrome Status: Acute Assessment and Plan: Continue to support with ARDS protocol (3) Pulmonary embolism: Onset Date: ~11/2019 Qualifiers: Pulmonary embolism type: single subsegmental (without acute cor pulmonale) Qualified Code(s): I26.93 - Single subsegmental pulmonary embolism without acute cor pulmonale Code(s): I26.99 - Other pulmonary embolism without acute cor pulmonale Status: Acute Assessment and Plan: Continue heparin (4) Pneumonia: Qualifiers: Laterality: bilateral Lung location: unspecified part of lung Pneumonia type: due to unspecified organism Qualified Code(s): J18.9 - Pneumonia, unspecified organism Code(s): J18.9 - Pneumonia, unspecified organism Status: Acute Assessment and Plan: Vanc, azithromycin, cefepime Day 6 antibiotics (5) Lung cancer: Qualifiers: Laterality: right Lung location: upper lobe of lung Qualified Code(s): C34.11 - Malignant neoplasm of upper lobe, right bronchus or lung Code(s): C34.90 - Malignant neoplasm of unspecified part of unspecified bronchus or lung Status: Chronic Assessment and Plan: NSCLC Currently not receiving chemotherapy (6) Chronic interstitial lung disease: Code(s): J84.9 - Interstitial pulmonary disease, unspecified Status: Chronic Assessment and Plan: 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 Subjective Date/time seen: 12/03/19 08:54 Interval history: Ventilator. Sedated. Review of Systems Review of Systems: ROS unobtainable: unobtainable due to endotracheal tube Exam Narrative: Exam Narrative: HEENT: PERRL, sclearae nonicteric, mucous membranes pink and moist, ET tube in place NECK: No JVD CHEST: Coarse BS HEART: NL S1/S2, regular, no murmur ABDOMEN: BS+, soft, nontender, no mass, no bruits EXTREMITIES: No cyanosis, edema, or clubbing NEUROLOGIC: CN intact and symmetric to inspection. MUSCULOSKELETAL: Tone and strength symmetric. PSYCH: sedated Objective Data Vital Signs Vital Signs: Vital Signs - 24 hr 12/02/19 10:00 12/02/19 10:04 12/02/19 10:12 Temperature Pulse Rate 77 78 73 Respiratory Rate 22 H 22 H Blood Pressure Pulse Oximetry 94 12/02/19 11:47 12/02/19 12:00 12/02/19 12:21 Temperature 97.8 F Pulse Rate 77 74 74 Respiratory Rate 22 H 16 Blood Pressure 108/66 114/70 Pulse Oximetry 94 96 96 12/02/19 14:00 12/02/19 15:38 12/02/19 15:46 Temperature Pulse Rate 93 77 77 Respiratory Rate 19 22 H 22 H Blood Pressure 98/60 L Pulse Oximetry 93 92 12/02/19 16:00 12/02/19 17:32 12/02/19 18:00 Temperature 97.7 F Pulse Rate 81 73 72 Respiratory Rate 22 H 22 H Blood Pressure 118/70 125/78 Pulse Oximetry 95 95 94 12/02/19 20:00 12/02/19 20:20 12/02/19 20:25 Temperature 97.8 F Pul
[2019-12-03] MEDS: FINASTERIDE 5 MG TABLET PO (08:57)
[2019-12-03] MEDS: TAMSULOSIN HCL 0.4 MG CAPSULE PO (08:57)
[2019-12-03] MEDS: PANTOPRAZOLE SODIUM IV 40 MG VIAL IV PUSH (08:57)
--- NOTE | 2019-12-03 09:06 | PM.PNPUL ---
Progress Note: A&P Assessment and Plan (1) Acute respiratory distress syndrome (ARDS): Code(s): J80 - Acute respiratory distress syndrome Status: Acute Assessment and Plan: agree with low tidal volume strategy, current at 400 ml, peak airway pressures were 31 cm H20, making the plateau likely less than 30. (2) ILD (interstitial lung disease): Code(s): J84.9 - Interstitial pulmonary disease, unspecified Status: Acute Assessment and Plan: This may be IPF exacerbation which is very lethal. - continue pulse dose steroid by increasing solumedrol to 125 mg IV Q6h for 5 days then discontinue (3) Pneumonia: Qualifiers: Laterality: bilateral Lung location: unspecified part of lung Pneumonia type: due to unspecified organism Qualified Code(s): J18.9 - Pneumonia, unspecified organism Code(s): J18.9 - Pneumonia, unspecified organism Status: Acute Assessment and Plan: -Agree with curren antibiotic regimen. WBC is decreasing. - concomittentant viral infection is unknown but less likely given response to antibiotics Time Spent With Patient Time with patient: 15 - 25 minutes Subjective Date/time seen: 12/03/19 09:06 Interval history: Patient with possible UIP/IPF pattern on CT chest from August 2019 presents with acute hypoxemic respiratory failure and diffuse multilobar pneumonia in the RUL mostly. He is currently on Cefepime, Azithromycin and Vancomycin and on low tidal volume strategy for ARDS with decreasing leukocytosis and improving PaO2/FiO2 ratio Review of Systems Review of Systems: All systems reviewed & are unremarkable except as noted in HPI and below Exam Narrative: Exam Narrative: Intubated and sedated Const: General: comfortable and no acute distress HENMT: Mouth: Yes moist mucous membranes Neck: Neck: supple and no JVD Resp: Auscultation: no crackles, no rales, no rhonchi, no wheezes and diminished lung sounds Cardio: Rate: regular rate Rhythm: regular rhythm GI: Auscultation: normal bowel sounds Skin: General skin exam: normal color and no rashes or lesions noted Extrem: General: normal to inspection, no edema and no pedal edema Objective Data Vital Signs Vital Signs: Vital Signs - 24 hr 12/02/19 10:00 12/02/19 10:04 12/02/19 10:12 Temperature Pulse Rate 77 78 73 Respiratory Rate 22 H 22 H Blood Pressure Pulse Oximetry 94 03/06/20 11:47 12/02/19 12:00 12/02/19 12:21 Temperature 36.6 C Pulse Rate 77 74 74 Respiratory Rate 22 H 16 Blood Pressure 108/66 114/70 Pulse Oximetry 94 96 96 12/02/19 14:00 12/02/19 15:38 12/02/19 15:46 Temperature Pulse Rate 93 77 77 Respiratory Rate 19 22 H 22 H Blood Pressure 98/60 L Pulse Oximetry 93 92 12/02/19 16:00 12/02/19 17:32 12/02/19 18:00 Temperature 36.5 C Pulse Rate 81 73 72 Respiratory Rate 22 H 22 H Blood Pressure 118/70 125/78 Pulse Oximetry 95 95 94 12/02/19 20:00 12/02/19 20:20 12/02/19 20:25 Temperature 36.6 C Pulse Rate 73 84 82 Respiratory Rate 22 H 22 H Blood Pressure 128/75 Pulse Oximetry 93 95 12/02/19 20:30 12/02/19 22:00 12/02/19 22:39 Temperature Pulse Rate 88 75 88 Respiratory Rate 23 H 22 H Blood Pressure 123/73 Pulse Oximetry 95 94 12/03/19 00:00 12/03/19 00:01 12/03/19 01:16 Temperature 36.7 C Pulse Rate 77 73 90 Respiratory Rate 22 H Blood Pressure 124/76 Pulse Oximetry 95 93 12/03/19 01:31 12/03/19 02:00 12/03/19 02:01 Temperature Pulse Rate 91 92 90 Respiratory Rate 20 22 H Blood Pressure 106/70 Pulse Oximetry 95 12/03/19 04:00 12/03/19 04:01 12/03/19 04:47 Temperature 36.6 C Pulse Rate 81 79 86 Respiratory Rate 21 H Blood Pressure 126/74 Pulse Oximetry 94 93 12/03/19 05:01 12/03/19 06:00 12/03/19 06:01 Temperature Pulse Rate 91 80 80 Respiratory Rate 22 H 20 Blood Pressure 123/70 140/81 Pulse Oximetry 94 94 12/03/19 08:4
--- NOTE | 2019-12-03 09:24 | PM.PNCARD ---
Progress Note: A&P Assessment and Plan (1) Atrial tachycardia: Code(s): I47.1 - Supraventricular tachycardia Status: Acute Assessment and Plan: In the setting of resp distress. Now in normal sinus rhythm 2D echo with normal EF and no significant valvular disease. No recurrence of arrhythmia Will sign off. Please don't hesitate to call with any questions. (2) Lung cancer: Qualifiers: Laterality: right Lung location: upper lobe of lung Qualified Code(s): C34.11 - Malignant neoplasm of upper lobe, right bronchus or lung Code(s): C34.90 - Malignant neoplasm of unspecified part of unspecified bronchus or lung Status: Chronic Assessment and Plan: Now with resp failure that appears multifactorial with lung cancer, pneumonia and PE. (3) Pulmonary embolism: Onset Date: ~11/2019 Qualifiers: Pulmonary embolism type: single subsegmental (without acute cor pulmonale) Qualified Code(s): I26.93 - Single subsegmental pulmonary embolism without acute cor pulmonale Code(s): I26.99 - Other pulmonary embolism without acute cor pulmonale Status: Acute Assessment and Plan: Small PE noted on CT. AC per primary team. Subjective Date/time seen: 12/03/19 09:24 Still on the vent, sedated intubated, not in acute distress, now he is in sinus rhythm Exam Narrative: Exam Narrative: Sedated and intubated. Const: General: no acute distress Eyes: Sclera: sclerae normal Neck: Neck: no JVD Carotids: no bruits Resp: Auscultation: diminished lung sounds Cardio: Rate: regular rate and not tachycardic Rhythm: regular rhythm Heart sounds: no gallops, no murmurs and no rubs Skin: General skin exam: normal color Neuro: Cranial nerves: Yes Normal hearing present Other: Sedated on the vent Extrem: General: no edema Objective Data Vital Signs Vital Signs: Vital Signs - 24 hr 12/02/19 10:00 12/02/19 10:04 12/02/19 10:12 Temperature Pulse Rate 77 78 73 Respiratory Rate 22 H 22 H Blood Pressure Pulse Oximetry 94 12/02/19 11:47 12/02/19 12:00 12/02/19 12:21 Temperature 36.6 C Pulse Rate 77 74 74 Respiratory Rate 22 H 16 Blood Pressure 108/66 114/70 Pulse Oximetry 94 96 96 12/02/19 14:00 12/02/19 15:38 12/02/19 15:46 Temperature Pulse Rate 93 77 77 Respiratory Rate 19 22 H 22 H Blood Pressure 98/60 L Pulse Oximetry 93 92 12/02/19 16:00 12/02/19 17:32 12/02/19 18:00 Temperature 36.5 C Pulse Rate 81 73 72 Respiratory Rate 22 H 22 H Blood Pressure 118/70 125/78 Pulse Oximetry 95 95 94 12/02/19 20:00 12/02/19 20:20 12/02/19 20:25 Temperature 36.6 C Pulse Rate 73 84 82 Respiratory Rate 22 H 22 H Blood Pressure 128/75 Pulse Oximetry 93 95 12/02/19 20:30 12/02/19 22:00 12/02/19 22:39 Temperature Pulse Rate 88 75 88 Respiratory Rate 23 H 22 H Blood Pressure 123/73 Pulse Oximetry 95 94 12/03/19 00:00 12/03/19 00:01 12/03/19 01:16 Temperature 36.7 C Pulse Rate 77 73 90 Respiratory Rate 22 H Blood Pressure 124/76 Pulse Oximetry 95 93 12/03/19 01:31 12/03/19 02:00 12/03/19 02:01 Temperature Pulse Rate 91 92 90 Respiratory Rate 20 22 H Blood Pressure 106/70 Pulse Oximetry 95 12/03/19 04:00 12/03/19 04:01 12/03/19 04:47 Temperature 36.6 C Pulse Rate 81 79 86 Respiratory Rate 21 H Blood Pressure 126/74 Pulse Oximetry 94 93 12/03/19 05:01 12/03/19 06:00 12/03/19 06:01 Temperature Pulse Rate 91 80 80 Respiratory Rate 22 H 20 Blood Pressure 123/70 140/81 Pulse Oximetry 94 94 12/03/19 08:42 12/03/19 08:49 12/03/19 08:55 Temperature Pulse Rate 76 76 80 Respiratory Rate 20 20 Blood Pressure Pulse Oximetry 93 Intake/Output Intake/Output: Intake & Output 11/30/19 12/01/19 12/02/19 12/03/19 23:59 23:59 23:59 23:59 Intake Total 1648 2039 2197 604 Output Total 1510 1120 5475 [address] [place] [id number] [phone]
[2019-12-03 10:49] LABS: Partial Thromboplastin Time 64.6 SECONDS (22.3-36.8)
[2019-12-03] MEDS: ENOXAPARIN 100 MG/ML SYRINGE 85 MG SUB-Q ×2 (12:09→20:33)
[2019-12-03 13:32] LABS: Procalcitonin 2.05 ng/mL (<0.10)
[2019-12-03 14:39] LABS: Triglycerides 154 mg/dL (<150)
[2019-12-03] MEDS: CISATRACURIUM BESYLATE 20 MG/10 ML VIAL 10 MG IV PUSH (16:45)
[2019-12-03] MEDS: MIDAZOLAM HCL 50 MG in DEXTROSE 5% 90 ML 8 MG IV CONT (17:23)
[2019-12-03 17:44] LABS: Glucose Point of Care 131 (65-105)
[2019-12-03] MEDS: PROPOFOL IV EMULSION 100 ML 12.5 MG IV CONT (19:40)
[2019-12-03] MEDS: DORNASE ALFA INH SOLN 1 MG/ML 2.5 ML AMP 2.5 MG INHALATION (20:19)
[2019-12-03 23:08] LABS: Glucose Point of Care 160 (65-105)
[2019-12-04] VITALS (34 sets, daily range): BP systolic 96–127; BP diastolic 59–75; PULSE 80–116; RESP 20–87; TEMP 36.2–37; O2SAT 24–99
[2019-12-04] MEDS: methylPREDNISolone SOD SUCC 125 MG VIAL IV PUSH ×4 (00:50→17:26)
--- NOTE | 2019-12-04 03:00 | PCRCNOTE ---
Daylight Savings Time For Daylight Savings Time Ending in the Fall - Clocks are moved back. For Daylight Savings Time Beginning in the Spring - Clocks are moved ahead. For [facility], the time of change occurs at 0200 hrs. Time is taken from the cocktail server. This entry on the patient's chart recognizes the change in time reflected during documentation. Example: 2 entries for vital signs may be charted for 0200 hrs.
[2019-12-04] MEDS: IPRATROPIUM BR 0.02% INH SOLN 0.5 MG/2.5 ML VIAL INHALATION ×4 (03:08→19:41)
[2019-12-04] MEDS: DOCUSATE SODIUM 100 MG CAPSULE PO (03:13)
[2019-12-04] MEDS: PROPOFOL IV EMULSION 100 ML 12.5 MG IV CONT (03:15)
--- NOTE | 2019-12-04 03:39 | PC.NURSE ---
Daylight Savings Time For Daylight Savings Time Ending in the Fall - Clocks are moved back. For Daylight Savings Time Beginning in the Spring - Clocks are moved ahead. For [facility], the time of change occurs at 0200 hrs. Time is taken from the wrapper and preserver. This entry on the patient's chart recognizes the change in time reflected during documentation. Example: 2 entries for vital signs may be charted for 0200 hrs.
[2019-12-04 04:35] LABS: Alveolar/Arterial O2 Gradient 207.8 mmHg; Base Excess ABG 2.3 mEq/l (+/-2.0); Carboxyhemoglobin 0.3 % THb (0-2.0); Fractional Inspired Oxygen 50 %; HCO3 ABG 30.5 mEq/l (22.0-26.0); Methemoglobin ABG 0.5 %THb (0-1.5); Oxygen Content ABG 15.9 %vol (16.0-22.0); Oxygen Saturation ABG 92.9 % (95.0-100.0); Oxyhemoglobin 91.9 % THb (90.0-100.0); PO2 ABG 74.8 mmHg (80.0-100.0); Reduced Hemoglobin 7.3 %THb (0-5.0); Total Hemoglobin 12.3 g/dL (12.0-18.0)
[2019-12-04 04:38] LABS: Device VENTILATOR; Modified Allen's Test Pass; PCO2 ABG 65.7 mmHg (35.0-45.0); Site Drawn LEFT RADIAL; pH ABG 7.284 (7.350-7.450)
[2019-12-04 04:39] LABS: Arterial Blood Gas PEEP 12 cmH2O; Arterial Blood Gas Tidal Volume 400 ml; Arterial Blood Gas Vent Mode CMV; Arterial Blood Gas Ventilator rate 22 /MIN
[2019-12-04 04:44] LABS: Hematocrit 34.2 % (42.0-52.0); Hemoglobin 10.9 g/dL (14.0-18.0); Immature Platelet Fraction Pct 9.6 % (0.9-11.2); Mean Corpuscular HGB Conc 31.9 g/dl (32-36); Mean Corpuscular Hemoglobin 31.6 pg (26-34); Mean Corpuscular Volume 99.1 fl (80-100); Mean Platelet Volume 11.8 fl (7.4-10.4); Platelet Count Result 128 k/mm3 (150-375); Red Blood Count 3.45 M/mm3 (4.6-6.20); Red Cell Distribution Width 13.4 % (11.5-14.5); White Blood Count 12.1 K/mm3 (4.5-10.0)
[2019-12-04 04:57] LABS: Blood Urea Nitrogen 53 mg/dL (9-20); Calcium 8.1 mg/dL (8.4-10.2); Carbon Dioxide 33 mmol/L (22-30); Chloride 101 mmol/L (98-107); Estimated CRCL calculation 76 ml/min; Estimated Glomerular Filt Rate > 60; Glucose 209 mg/dL (75-110); Magnesium 2.7 mg/dL (1.6-2.3); Phosphorus 4.1 mg/dL (2.5-4.5); Potassium 4.5 mmol/L (3.4-5.0); Sodium 137 mmol/L (137-145)
[2019-12-04] MEDS: CENTRAL LINE FLUSH 10 ML IV PUSH ×2 (06:37→22:25)
[2019-12-04] MEDS: PANTOPRAZOLE SODIUM IV 40 MG VIAL IV PUSH (08:11)
[2019-12-04] MEDS: ENOXAPARIN 100 MG/ML SYRINGE 85 MG SUB-Q ×2 (08:11→22:25)
[2019-12-04] MEDS: TAMSULOSIN HCL 0.4 MG CAPSULE PO (08:11)
[2019-12-04] MEDS: FINASTERIDE 5 MG TABLET PO (08:11)
[2019-12-04] MEDS: BUDESONIDE RESPULE NEB 0.5 MG/2 ML AMP INHALATION ×2 (08:14→19:41)
[2019-12-04] MEDS: MIDAZOLAM HCL 50 MG in DEXTROSE 5% 90 ML 6 MG IV CONT (09:06)
[2019-12-04] MEDS: DORNASE ALFA INH SOLN 1 MG/ML 2.5 ML AMP 2.5 MG INHALATION ×2 (10:28→19:41)
[2019-12-04] MEDS: PROPOFOL IV EMULSION 100 ML 10 MG IV CONT (12:20)
--- NOTE | 2019-12-04 12:57 | WPDINTPN ---
Progress Note: A&P Assessment and Plan (1) Respiratory failure: Qualifiers: Chronicity: acute on chronic Respiratory failure complication: hypoxia and hypercapnia Qualified Code(s): J96.21 - Acute and chronic respiratory failure with hypoxia; J96.22 - Acute and chronic respiratory failure with hypercapnia Code(s): J96.90 - Respiratory failure, unspecified, unspecified whether with hypoxia or hypercapnia Status: Acute Assessment and Plan: patient presented with shortness of breath likely related to pneumonia, pulmonary embolism, interstitial lung disease, lung cancer. Patient intubated on 11/28/2019 - chest x-ray with no change, ABGs are acceptable - continue low tidal volume strategy and high peep. 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 OFF Nimbex - 12/04/2019 ETT was switched using a bougie secondary to air leak, oxygenation was maintained through the procedure (2) Pulmonary embolism: Onset Date: ~11/2019 Qualifiers: Pulmonary embolism type: single subsegmental (without acute cor pulmonale) Qualified Code(s): I26.93 - Single subsegmental pulmonary embolism without acute cor pulmonale Code(s): I26.99 - Other pulmonary embolism without acute cor pulmonale Status: Acute Assessment and Plan: CT PE protocol revealed subsegmental pulmonary embolism in the left lower lobe with small thrombus burden. - Lovenox therapeutic dose (3) Pneumonia: Qualifiers: Laterality: bilateral Lung location: unspecified part of lung Pneumonia type: due to unspecified organism Qualified Code(s): J18.9 - Pneumonia, unspecified organism Code(s): J18.9 - Pneumonia, unspecified organism Status: Acute Assessment and Plan: mixed interstitial and airspace disease throughout both lungs which may represent a combination of pneumonia, metastatic disease, fibrosis, edema. - Continue antibiotics as above - continue bronchodilators - patient is thick secretions in ETT, continue Pulmozyme (4) Lung cancer: Qualifiers: Laterality: right Lung location: upper lobe of lung Qualified Code(s): C34.11 - Malignant neoplasm of upper lobe, right bronchus or lung Code(s): C34.90 - Malignant neoplasm of unspecified part of unspecified bronchus or lung Status: Chronic Assessment and Plan: according the it is a non-small cell lung cancer. patient has received chemotherapy and radiation between last summer and fall per records (5) Chronic interstitial lung disease: Code(s): J84.9 - Interstitial pulmonary disease, unspecified Status: Chronic Assessment and Plan: patient with history of interstitial lung disease, follows with Dr. Paulie Evans, operations support specialist. - continue steroids, - appreciate pulmonology evaluation and recommendation - Pt on high dose steroids for 5 days started on 12/01/2019 per pulmonology (6) Atrial fibrillation with RVR: Code(s): I48.91 - Unspecified atrial fibrillation Status: Acute Assessment and Plan: on admission patient was in AFib RVR and was started on Cardizem per Cardiology, blood pressures were borderline so Cardizem infusion was discontinued on 11/29/2019. - AFib most likely related to respiratory distress and hypoxemia - Currently in sinus rhythm, appreciate Cardiology evaluation recommendation. - echocardiogram on 11/29/2019 showed LV systolic function to be normal estimated at 50-55%. Mild pulmonary hypertension with RVSP of 45 mmHg, no mitral valve regurg. Right ventricle size and function grossly normal. - Appreciate Cardiology evaluation and recommendation (7) Essential (primary) hypertension: Code(s): I10 - Essential (primary) hypertension Status: Acute
--- NOTE | 2019-12-04 13:14 | WPDPROCEDUR ---
Procedures Intubation: Intubation Date: 12/04/19 A pre-procedural Time-Out was completed immediately before starting the procedure and confirmed: Patient Identification, Site, Procedure, Patient Position and the Availability of Requisite Equipment: Yes Sedative: none Laryngoscope: fiber optic video scope Assist device used: fiber optic device ET tube size: 8 Tube placement confirmation: visualized tube passing through cords, equal breath sounds bilaterally, no breath sounds over epigastrium and confirmation by capnometry Patient tolerated procedure: well Intubation complications: none
--- NOTE | 2019-12-04 13:27 | PM.IMPN ---
Progress Note: A&P Assessment and Plan (1) Respiratory failure: Qualifiers: Chronicity: acute on chronic Respiratory failure complication: hypoxia and hypercapnia Qualified Code(s): J96.21 - Acute and chronic respiratory failure with hypoxia; J96.22 - Acute and chronic respiratory failure with hypercapnia Code(s): J96.90 - Respiratory failure, unspecified, unspecified whether with hypoxia or hypercapnia Status: Acute Assessment and Plan: Continue to support on vent FIO2 down to 50% Wean as possible (2) Acute respiratory distress syndrome (ARDS): Code(s): J80 - Acute respiratory distress syndrome Status: Acute Assessment and Plan: Continue to support with ARDS protocol (3) Pulmonary embolism: Onset Date: ~11/2019 Qualifiers: Pulmonary embolism type: single subsegmental (without acute cor pulmonale) Qualified Code(s): I26.93 - Single subsegmental pulmonary embolism without acute cor pulmonale Code(s): I26.99 - Other pulmonary embolism without acute cor pulmonale Status: Acute Assessment and Plan: Continue heparin (4) Pneumonia: Qualifiers: Laterality: bilateral Lung location: unspecified part of lung Pneumonia type: due to unspecified organism Qualified Code(s): J18.9 - Pneumonia, unspecified organism Code(s): J18.9 - Pneumonia, unspecified organism Status: Acute Assessment and Plan: Vanc, azithromycin, cefepime Day 7 antibiotics (5) Lung cancer: Qualifiers: Laterality: right Lung location: upper lobe of lung Qualified Code(s): C34.11 - Malignant neoplasm of upper lobe, right bronchus or lung Code(s): C34.90 - Malignant neoplasm of unspecified part of unspecified bronchus or lung Status: Chronic Assessment and Plan: NSCLC Currently not receiving chemotherapy (6) Chronic interstitial lung disease: Code(s): J84.9 - Interstitial pulmonary disease, unspecified Status: Chronic Assessment and Plan: 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 Subjective Date/time seen: 12/04/19 13:27 Interval history: Ventilator. Sedated. Review of Systems Review of Systems: ROS unobtainable: unobtainable due to endotracheal tube and unobtainable due to mental status Exam Narrative: Exam Narrative: HEENT: PERRL, sclearae nonicteric, mucous membranes pink and moist, ET tube in place NECK: No JVD CHEST: Coarse BS HEART: NL S1/S2, regular, no murmur ABDOMEN: BS+, soft, nontender, no mass, no bruits EXTREMITIES: No cyanosis, edema, or clubbing NEUROLOGIC: CN intact and symmetric to inspection. MUSCULOSKELETAL: Tone and strength symmetric. PSYCH: sedated Objective Data Vital Signs Vital Signs: Vital Signs - 24 hr 12/03/19 14:00 12/03/19 14:08 12/03/19 14:10 Temperature Pulse Rate 104 H 96 107 H Respiratory Rate 14 20 Blood Pressure 102/67 Pulse Oximetry 93 92 12/03/19 14:18 12/03/19 16:00 12/03/19 16:40 Temperature 98.4 F Pulse Rate 107 H 100 106 H Respiratory Rate 20 17 Blood Pressure 108/65 Pulse Oximetry 93 98 12/03/19 18:00 12/03/19 20:00 12/03/19 20:21 Temperature 97.8 F Pulse Rate 100 89 88 Respiratory Rate 22 H 22 H 22 H Blood Pressure 104/72 100/58 L Pulse Oximetry 94 96 12/03/19 20:22 12/03/19 20:34 12/03/19 20:40 Temperature Pulse Rate 88 91 93 Respiratory Rate 22 H Blood Pressure Pulse Oximetry 98 97 12/03/19 21:00 12/03/19 22:00 12/02
[2019-12-04 13:41] LABS: Triglycerides 212 mg/dL (<150)
--- NOTE | 2019-12-04 16:06 | PM.PNPUL ---
Progress Note: A&P Assessment and Plan (1) Acute respiratory distress syndrome (ARDS): Code(s): J80 - Acute respiratory distress syndrome Status: Acute Assessment and Plan: agree with low tidal volume strategy, current at 400 ml, peak airway pressures were 31 cm H20, making the plateau likely less than 30. attempt slow weaning of PEEP over next few days (2) ILD (interstitial lung disease): Code(s): J84.9 - Interstitial pulmonary disease, unspecified Status: Acute Assessment and Plan: This may be IPF exacerbation which is very lethal. - continue pulse dose steroid by increasing solumedrol to 125 mg IV Q6h for 5 days then discontinue - there is a slight increased risk of critical illness polyneuropathy with use of systemic steroids and paralytics. - consider using foot drop boots and PT to do range of motion while intubated. (3) Pneumonia: Qualifiers: Laterality: bilateral Lung location: unspecified part of lung Pneumonia type: due to unspecified organism Qualified Code(s): J18.9 - Pneumonia, unspecified organism Code(s): J18.9 - Pneumonia, unspecified organism Status: Acute Assessment and Plan: -Agree with curren antibiotic regimen. WBC is decreasing. - concomittentant viral infection is unknown but less likely given response to antibiotics Time Spent With Patient Time with patient: 15 - 25 minutes Subjective Date/time seen: 12/04/19 16:06 Interval history: Tube replaced this morning due to cuff leak. Slight increased in oxygen demand this morning but not much. Review of Systems Review of Systems: All systems reviewed & are unremarkable except as noted in HPI and below Exam Narrative: Exam Narrative: Intubated and sedated Const: General: comfortable and no acute distress HENMT: Mouth: Yes moist mucous membranes Neck: Neck: supple and no JVD Resp: Auscultation: no crackles, no rales, no rhonchi, no wheezes and diminished lung sounds Cardio: Rate: regular rate Rhythm: regular rhythm GI: Auscultation: normal bowel sounds Skin: General skin exam: normal color and no rashes or lesions noted Extrem: General: normal to inspection, no edema and no pedal edema Objective Data Vital Signs Vital Signs: Vital Signs - 24 hr 12/03/19 16:00 12/03/19 16:40 12/03/19 18:00 Temperature 36.9 C Pulse Rate 100 106 H 100 Respiratory Rate 17 22 H Blood Pressure 108/65 104/72 Pulse Oximetry 93 98 94 12/03/19 20:00 12/03/19 20:21 12/03/19 20:22 Temperature 36.6 C Pulse Rate 89 88 88 Respiratory Rate 22 H 22 H Blood Pressure 100/58 L Pulse Oximetry 96 98 12/03/19 20:34 12/03/19 20:40 12/03/19 21:00 Temperature Pulse Rate 91 93 94 Respiratory Rate 22 H 22 H Blood Pressure 101/59 L Pulse Oximetry 97 96 12/03/19 22:00 12/03/19 22:51 12/03/19 23:00 Temperature Pulse Rate 97 97 95 Respiratory Rate 18 22 H Blood Pressure 106/56 L 113/71 Pulse Oximetry 97 98 97 12/03/19 23:21 12/04/19 00:00 12/04/19 01:00 Temperature 36.2 C L Pulse Rate 94 91 87 Respiratory Rate 25 H 22 H Blood Pressure 104/65 108/70 Pulse Oximetry 93 95 95 12/04/19 03:00 12/04/19 03:01 12/04/19 03:08 Temperature Pulse Rate 89 89 91 Respiratory Rate 22 H 22 H Blood Pressure 96/62 L Pulse Oximetry 95 12/04/19 03:19 12/04/19 04:00 12/04/19 04:16 Temperature 36.2 C L Pulse Rate 91 92 94 Respiratory Rate 22 H 22 H Blood Pressure 98/61 L Pulse Oximetry 96 95 12/04/19 05:00 12/04/19 06:00 12/04/19 06:30 Temperature Pulse Rate 94 89 89 Respiratory Rate 22 H 22 H Blood Pressure 99/59 L 99/63 L Pulse Oximetry 94 94 92 12/04/19 07:00 12/04/19 07:53 12/04/19 07:58 Temperature 36.5 C Pulse Rate 88 85 Respiratory Rate 24 H 87 H 24 H Blood Pressure 102/65 102/65 Pulse Oximetry 94 24 L 94 12/04/19 08:00 12/04/19 08:16 12/04/19 08:51 Temperature Pulse Rate 86 83 85 Respiratory Rate
[2019-12-04 16:28] LABS: Alveolar/Arterial O2 Gradient 285.5 mmHg; Base Excess ABG 1.9 mEq/l (+/-2.0); Fractional Inspired Oxygen 60 %; HCO3 ABG 29.9 mEq/l (22.0-26.0); Oxygen Content ABG 15.8 %vol (16.0-22.0); Oxygen Saturation ABG 92.3 % (95.0-100.0); Oxyhemoglobin 91.6 % THb (90.0-100.0); PO2 ABG 72.2 mmHg (80.0-100.0); Total Hemoglobin 12.2 g/dL (12.0-18.0)
[2019-12-04 16:30] LABS: Arterial Blood Gas Ventilator rate 24 /MIN; Device VENTILATOR; PCO2 ABG 63.7 mmHg (35.0-45.0); Site Drawn LEFT BRACHIAL; pH ABG 7.289 (7.350-7.450)
[2019-12-04 16:31] LABS: Arterial Blood Gas PEEP 12 cmH2O; Arterial Blood Gas Tidal Volume 400 ml; Arterial Blood Gas Vent Mode CMV
[2019-12-04 18:08] LABS: Glucose Point of Care 203 (65-105)
[2019-12-04 18:08] LABS: Glucose Point of Care 92 (65-105)
[2019-12-04] MEDS: MIDAZOLAM HCL 50 MG in DEXTROSE 5% 90 ML 10 MG IV CONT (18:58)
[2019-12-04] MEDS: PROPOFOL IV EMULSION 100 ML 20 MG IV CONT (21:48)
[2019-12-05] VITALS (28 sets, daily range): BP systolic 105–137; BP diastolic 64–79; PULSE 69–119; RESP 22–28; TEMP 36.4–37; O2SAT 91–99
[2019-12-05] MEDS: methylPREDNISolone SOD SUCC 125 MG VIAL IV PUSH ×4 (00:55→17:24)
[2019-12-05 01:09] LABS: Glucose Point of Care 165 (65-105)
[2019-12-05] MEDS: IPRATROPIUM BR 0.02% INH SOLN 0.5 MG/2.5 ML VIAL INHALATION ×4 (01:40→20:31)
[2019-12-05] MEDS: PROPOFOL IV EMULSION 100 ML 10 MG IV CONT (03:18)
[2019-12-05] MEDS: MIDAZOLAM HCL 50 MG in DEXTROSE 5% 90 ML 12 MG IV CONT (04:08)
[2019-12-05 04:18] LABS: Alveolar/Arterial O2 Gradient 290.6 mmHg; Base Excess ABG 3.7 mEq/l (+/-2.0); Carboxyhemoglobin 0.3 % THb (0-2.0); Fractional Inspired Oxygen 60 %; HCO3 ABG 30.8 mEq/l (22.0-26.0); Methemoglobin ABG 0.1 %THb (0-1.5); Oxygen Content ABG 15.9 %vol (16.0-22.0); Oxygen Saturation ABG 93.5 % (95.0-100.0); Oxyhemoglobin 92.9 % THb (90.0-100.0); PCO2 ABG 58.4 mmHg (35.0-45.0); PO2 FiO2 Ratio Arterial Blood 1.22 %; Reduced Hemoglobin 6.7 %THb (0-5.0); Total Hemoglobin 12.1 g/dL (12.0-18.0)
[2019-12-05 04:20] LABS: Arterial Blood Gas PEEP 12 cmH2O; Arterial Blood Gas Vent Mode CMV; Arterial Blood Gas Ventilator rate 24 /MIN; Device VENTILATOR; Modified Allen's Test Pass; Site Drawn LEFT RADIAL
[2019-12-05 04:21] LABS: Arterial Blood Gas Tidal Volume 400 ml
[2019-12-05] MEDS: CENTRAL LINE FLUSH 10 ML IV PUSH ×2 (06:03→22:15)
[2019-12-05 06:16] LABS: Glucose Point of Care 173 (65-105)
[2019-12-05 06:23] LABS: Hematocrit 34.4 % (42.0-52.0); Hemoglobin 11.1 g/dL (14.0-18.0); Immature Platelet Fraction Pct 11.8 % (0.9-11.2); Mean Corpuscular HGB Conc 32.3 g/dl (32-36); Mean Corpuscular Hemoglobin 31.8 pg (26-34); Mean Corpuscular Volume 98.6 fl (80-100); Mean Platelet Volume 11.1 fl (7.4-10.4); Platelet Count Result 127 k/mm3 (150-375); Red Blood Count 3.49 M/mm3 (4.6-6.20); Red Cell Distribution Width 13.4 % (11.5-14.5); White Blood Count 12.5 K/mm3 (4.5-10.0)
[2019-12-05 06:33] LABS: Blood Urea Nitrogen 55 mg/dL (9-20); Calcium 8.4 mg/dL (8.4-10.2); Carbon Dioxide 36 mmol/L (22-30); Chloride 104 mmol/L (98-107); Estimated CRCL calculation 63 ml/min; Estimated Glomerular Filt Rate > 60; Glucose 169 mg/dL (75-110); Magnesium 2.8 mg/dL (1.6-2.3); Phosphorus 3.8 mg/dL (2.5-4.5); Potassium 4.8 mmol/L (3.4-5.0); Sodium 139 mmol/L (137-145)
[2019-12-05 07:37] LABS: Vancomycin Trough 13.9 ug/mL (10.0-20.0)
[2019-12-05] MEDS: ENOXAPARIN 100 MG/ML SYRINGE 85 MG SUB-Q ×2 (08:10→20:37)
[2019-12-05] MEDS: TAMSULOSIN HCL 0.4 MG CAPSULE PO (08:10)
[2019-12-05] MEDS: FINASTERIDE 5 MG TABLET PO (08:10)
--- NOTE | 2019-12-05 08:10 | WPDINTPN ---
Progress Note: A&P Assessment and Plan (1) Respiratory failure: Qualifiers: Chronicity: acute on chronic Respiratory failure complication: hypoxia and hypercapnia Qualified Code(s): J96.21 - Acute and chronic respiratory failure with hypoxia; J96.22 - Acute and chronic respiratory failure with hypercapnia Code(s): J96.90 - Respiratory failure, unspecified, unspecified whether with hypoxia or hypercapnia Status: Acute Assessment and Plan: patient presented with shortness of breath likely related to pneumonia, pulmonary embolism, interstitial lung disease, lung cancer. ARDS Patient intubated on 11/28/2019. endotracheal tube changed on 12/03 - chest x-ray and ABG reviewed - increased rate on the ventilator to 26 - continue low tidal volume strategy and high peep. weaning FiO2, ventilator adjusted - continue cefepime, vancomycin and azithromycin for now - sputum cultures mixed bacterial mary employment representative of lower respiratory tract specimen - sedated with fentanyl, Versed, propofol. OFF Nimbex. wean sedation if possible - will try to keep the intake and output balanced to avoid fluid overload contributing as pulmonary edema and respiratory failure. Patient is off of IV fluids. he is positive by 5 L. echocardiogram showed dilated IVC. will give dose of Lasix (2) Pulmonary embolism: Onset Date: ~11/2019 Qualifiers: Pulmonary embolism type: single subsegmental (without acute cor pulmonale) Qualified Code(s): I26.93 - Single subsegmental pulmonary embolism without acute cor pulmonale Code(s): I26.99 - Other pulmonary embolism without acute cor pulmonale Status: Acute Assessment and Plan: CT PE protocol revealed subsegmental pulmonary embolism in the left lower lobe with small thrombus burden. - Continue Lovenox therapeutic dose (3) Pneumonia: Qualifiers: Laterality: bilateral Lung location: unspecified part of lung Pneumonia type: due to unspecified organism Qualified Code(s): J18.9 - Pneumonia, unspecified organism Code(s): J18.9 - Pneumonia, unspecified organism Status: Acute Assessment and Plan: mixed interstitial and airspace disease throughout both lungs which may represent a combination of pneumonia, metastatic disease, fibrosis, edema. - Continue antibiotics as above - continue bronchodilators - patient is thick secretions in ETT, continue Pulmozyme (4) Lung cancer: Qualifiers: Laterality: right Lung location: upper lobe of lung Qualified Code(s): C34.11 - Malignant neoplasm of upper lobe, right bronchus or lung Code(s): C34.90 - Malignant neoplasm of unspecified part of unspecified bronchus or lung Status: Chronic Assessment and Plan: according the it is a non-small cell lung cancer. 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 - continue steroids, - appreciate pulmonology evaluation and recommendation - Pt on high dose steroids for 5 days started on 12/01/2019 per pulmonology (6) Atrial fibrillation with RVR: Code(s): I48.91 - Unspecified atrial fibrillation Status: Acute Assessment and Plan: on admission patient was in AFib RVR and was started on Cardizem per Cardiology, blood pressures were borderline so Cardizem infusion was discontinued on 11/29/2019. - AFib most likely related to respiratory distress and hypoxemia - Currently in sinus rhythm, appreciate Cardiology evaluation recommendation. - echocardiogram on 11/29/2019 showed LV systolic function to be normal estimated at 50-55%. Mild pulmonary hypertension with RVSP of 45 mmHg, no fozia
[2019-12-05] MEDS: PANTOPRAZOLE SODIUM IV 40 MG VIAL IV PUSH (08:11)
[2019-12-05] MEDS: BUDESONIDE RESPULE NEB 0.5 MG/2 ML AMP INHALATION ×2 (08:25→20:31)
[2019-12-05] MEDS: DORNASE ALFA INH SOLN 1 MG/ML 2.5 ML AMP 2.5 MG INHALATION ×2 (08:25→20:30)
--- NOTE | 2019-12-05 09:21 | PM.IMPN ---
Progress Note: A&P Assessment and Plan (1) Respiratory failure: Qualifiers: Chronicity: acute on chronic Respiratory failure complication: hypoxia and hypercapnia Qualified Code(s): J96.21 - Acute and chronic respiratory failure with hypoxia; J96.22 - Acute and chronic respiratory failure with hypercapnia Code(s): J96.90 - Respiratory failure, unspecified, unspecified whether with hypoxia or hypercapnia Status: Acute Assessment and Plan: Continue to support on vent FIO2 back up to 60% Wean as possible (2) Acute respiratory distress syndrome (ARDS): Code(s): J80 - Acute respiratory distress syndrome Status: Acute Assessment and Plan: Continue to support with ARDS protocol (3) Pulmonary embolism: Onset Date: ~11/2019 Qualifiers: Pulmonary embolism type: single subsegmental (without acute cor pulmonale) Qualified Code(s): I26.93 - Single subsegmental pulmonary embolism without acute cor pulmonale Code(s): I26.99 - Other pulmonary embolism without acute cor pulmonale Status: Acute Assessment and Plan: Continue heparin (4) Pneumonia: Qualifiers: Laterality: bilateral Lung location: unspecified part of lung Pneumonia type: due to unspecified organism Qualified Code(s): J18.9 - Pneumonia, unspecified organism Code(s): J18.9 - Pneumonia, unspecified organism Status: Acute Assessment and Plan: Vanc, cefepime Day 8 antibiotics (5) Lung cancer: Qualifiers: Laterality: right Lung location: upper lobe of lung Qualified Code(s): C34.11 - Malignant neoplasm of upper lobe, right bronchus or lung Code(s): C34.90 - Malignant neoplasm of unspecified part of unspecified bronchus or lung Status: Chronic Assessment and Plan: NSCLC Currently not receiving chemotherapy (6) Chronic interstitial lung disease: Code(s): J84.9 - Interstitial pulmonary disease, unspecified Status: Chronic Assessment and Plan: 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 (8) Atrial fibrillation with RVR: Code(s): I48.91 - Unspecified atrial fibrillation Status: Acute Assessment and Plan: Off diltiazem since 11/28 Resolved and now in NSR EF 55% by echo Subjective Date/time seen: 12/05/19 09:21 Interval history: Tube replaced yesterday. FiO2 is stable at 55%. 12 PEEP. Review of Systems Review of Systems: ROS unobtainable: unobtainable due to mental status Exam Narrative: Exam Narrative: HEENT: PERRL, sclearae nonicteric, mucous membranes pink and moist, ET tube in place NECK: No JVD CHEST: Coarse BS with scattered crackles HEART: NL S1/S2, regular, no murmur ABDOMEN: BS+, soft, nontender, no mass, no bruits EXTREMITIES: No cyanosis, edema, or clubbing NEUROLOGIC: CN intact and symmetric to inspection. MUSCULOSKELETAL: Tone and strength symmetric. PSYCH: sedated Objective Data Vital Signs Vital Signs: Vital Signs - 24 hr 12/04/19 10:00 12/04/19 11:06 12/04/19 12:00 Temperature 98.6 F Pulse Rate 82 83 111 H Respiratory Rate 24 H 24 H Blood Pressure 127/68 109/68 Pulse Oximetry 96 95 91 12/04/19 14:00 12/04/19 14:30 12/04/19 14:34 Temperature Pulse Rate 103 H 103 H 103 H Respiratory Rate 24 H 24 H Blood Pressure 110/69 Pulse Oximetry 95 95 12/04/19 14:41 12/04/19 16:00 12/04/19 16:22 Temperature 98.1 F Pulse Rate 104 H 95 101 H Respiratory Rate 20 24 H Blood Pressure 10
--- NOTE | 2019-12-05 10:58 | PCDIET ---
ICU Rounding Note: Patient tolerating Vital 1.5 at 40mL/hr. Recommended increase to 60mL/hr to closer meet estimated needs. Over 22 hours/day, this would provide 1980kcal (2178kcal with Propofol at present rate), 89g protein and 1008mL free water. Recommend continuing 30mL water flush every 4 hours. Last recorded weight is 83.1kg which is increased from last review. +I/O. adding Lasix today. Bowel Motility: +BM x 2 today. Labs Reviewed: Glu (169), BUN (55), Hgb (11.1), Hct (34.4) Meds Noted: Cefepime, Lasix, Fentanyl, Novolog, Atrovent, Vancomycin, Solu Medrol, Versed, Protonix, Miralax, Propofol (currently infusing at 7.5mL/hr which provides 198kcal over 24 hour period) Additional Notes: No documented skin breakdown. Will continue to monitor with same goal. Following daily in ICU rounds. Assessing/reassessing every Thursday/Thursday.
[2019-12-05] MEDS: FUROSEMIDE INJ 40 MG/4 ML VIAL (11:34)
[2019-12-05 11:44] LABS: Glucose Point of Care 153 (65-105)
--- NOTE | 2019-12-05 14:45 | PM.PNPUL ---
Progress Note: A&P Assessment and Plan (1) Acute respiratory distress syndrome (ARDS): Code(s): J80 - Acute respiratory distress syndrome Status: Acute Assessment and Plan: agree with low tidal volume strategy, current at 400 ml, peak airway pressures were 31 cm H20, making the plateau likely less than 30. It has not been possible to wean the PEEP due to oxygenation isseus. - Stop Azithromycin; d/w Dr Roberts; he has been on this 7 days - continue Cefepime and vancomycin, bronchodilator, steroids - (2) ILD (interstitial lung disease): Code(s): J84.9 - Interstitial pulmonary disease, unspecified Status: Acute Assessment and Plan: This may be IPF exacerbation which is very lethal. - continue pulse dose steroid by increasing solumedrol to 125 mg IV Q6h for 5 days then discontinue - there is a slight increased risk of critical illness polyneuropathy with use of systemic steroids and paralytics. - consider using foot drop boots and PT to do range of motion while intubated. (3) Pneumonia: Qualifiers: Laterality: bilateral Lung location: unspecified part of lung Pneumonia type: due to unspecified organism Qualified Code(s): J18.9 - Pneumonia, unspecified organism Code(s): J18.9 - Pneumonia, unspecified organism Status: Acute Assessment and Plan: -Agree with curren antibiotic regimen. WBC is decreasing. - concomittentant viral infection is unknown but less likely given response to antibiotics Subjective Date/time seen: 12/05/19 14:45 Interval history: He remains critically ill, FiO2 is stable at 55%. 12 PEEP. His is at the bedside. The patient is being treated for lung cancer at [facility], and his regular evaluation advisor is Dr Jesus Evans in [facility]. Review of Systems Review of Systems: All systems reviewed & are unremarkable except as noted in HPI and below Exam Narrative: Exam Narrative: Intubated and sedated Const: General: comfortable and no acute distress HENMT: Mouth: Yes moist mucous membranes Neck: Neck: supple and no JVD Resp: Auscultation: no crackles, no rales, no rhonchi, no wheezes and diminished lung sounds Cardio: Rate: regular rate Rhythm: regular rhythm GI: Auscultation: normal bowel sounds Skin: General skin exam: normal color and no rashes or lesions noted Extrem: General: normal to inspection, no edema and no pedal edema Objective Data Vital Signs Vital Signs: Vital Signs - 24 hr 12/04/19 16:00 12/04/19 16:22 12/04/19 17:56 Temperature 36.7 C Pulse Rate 95 101 H 83 Respiratory Rate 24 H 24 H Blood Pressure 106/74 109/69 Pulse Oximetry 93 93 94 12/04/19 19:45 12/04/19 19:46 12/04/19 19:55 Temperature Pulse Rate 86 88 96 Respiratory Rate 24 H 22 H Blood Pressure Pulse Oximetry 99 12/04/19 20:00 12/04/19 22:00 12/04/19 22:22 Temperature Pulse Rate 90 87 85 Respiratory Rate 21 H 24 H Blood Pressure 112/75 110/71 Pulse Oximetry 98 96 97 12/05/19 00:00 12/05/19 01:00 12/05/19 01:07 Temperature Pulse Rate 78 70 69 Respiratory Rate 24 H 24 H Blood Pressure 111/75 129/76 Pulse Oximetry 95 96 97 12/05/19 01:37 12/05/19 01:45 12/05/19 02:00 Temperature Pulse Rate 69 77 73 Respiratory Rate 24 H 22 H 24 H Blood Pressure 137/79 Pulse Oximetry 93 12/05/19 04:00 12/05/19 05:15 12/05/19 06:00 Temperature 36.6 C Pulse Rate 77 78 88 Respiratory Rate 24 H Blood Pressure 124/76 Pulse Oximetry 97 94 12/05/19 06:30 12/05/19 07:00 12/05/19 08:00 Temperature 36.4 C Pulse Rate 81 88 94 Respiratory Rate 24 H 24 H 26 H Blood Pressure 119/75 121/73 116/71 Pulse Oximetry 99 99 98 12/05/19 08:25 12/05/19 10:00 12/05/19 11:30 Temperature Pulse Rate 90 98 91 Respiratory Rate 24 H 26 H Blood Pressure 105/68 Pulse Oximetry 98 96 96 12/05/19 12:00 12/05/19 13:56 Temperature 36.4 C Pulse Rate 117 H 113 H Respiratory Rate 28 H 26 H
[2019-12-05 17:14] LABS: Glucose Point of Care 141 (65-105)
[2019-12-06] VITALS (26 sets, daily range): BP systolic 104–166; BP diastolic 67–78; PULSE 12–123; RESP 26–34; TEMP 36.6–37.3; O2SAT 92–94
[2019-12-06] MEDS: methylPREDNISolone SOD SUCC 125 MG VIAL IV PUSH ×4 (00:12→17:03)
[2019-12-06 00:24] LABS: Glucose Point of Care 196 (65-105)
[2019-12-06] MEDS: PROPOFOL IV EMULSION 100 ML 15 MG IV CONT ×4 (02:16→20:14)
[2019-12-06] MEDS: IPRATROPIUM BR 0.02% INH SOLN 0.5 MG/2.5 ML VIAL INHALATION ×4 (02:49→20:16)
[2019-12-06 04:23] LABS: Hemoglobin 10.8 g/dL (14.0-18.0); Mean Corpuscular HGB Conc 33.8 g/dl (32-36); Mean Corpuscular Hemoglobin 33.2 pg (26-34); Mean Corpuscular Volume 98.5 fl (80-100); Mean Platelet Volume 12.1 fl (7.4-10.4); Platelet Count Result 126 k/mm3 (150-375); Red Blood Count 3.25 M/mm3 (4.6-6.20); Red Cell Distribution Width 13.3 % (11.5-14.5); White Blood Count 15.4 K/mm3 (4.5-10.0)
[2019-12-06 05:43] LABS: Blood Urea Nitrogen 82 mg/dL (9-20); Carbon Dioxide 33 mmol/L (22-30); Chloride 104 mmol/L (98-107); Estimated CRCL calculation 69 ml/min; Estimated Glomerular Filt Rate > 60; Glucose 196 mg/dL (75-110); Magnesium 2.8 mg/dL (1.6-2.3); Phosphorus 3.8 mg/dL (2.5-4.5); Potassium 4.5 mmol/L (3.4-5.0); Sodium 139 mmol/L (137-145); Triglycerides 261 mg/dL (<150)
[2019-12-06 05:45] LABS: Alveolar/Arterial O2 Gradient 249.7 mmHg; Carboxyhemoglobin 0.3 % THb (0-2.0); Fractional Inspired Oxygen 55 %; HCO3 ABG 29.2 mEq/l (22.0-26.0); Methemoglobin ABG 0.4 %THb (0-1.5); Oxygen Saturation ABG 96.2 % (95.0-100.0); Oxyhemoglobin 94.8 % THb (90.0-100.0); PO2 ABG 85.7 mmHg (80.0-100.0); PO2 FiO2 Ratio Arterial Blood 1.56 %; Reduced Hemoglobin 4.5 %THb (0-5.0); Total Hemoglobin 12.7 g/dL (12.0-18.0); pH ABG 7.375 (7.350-7.450)
[2019-12-06 05:46] LABS: Modified Allen's Test Pass; Site Drawn RIGHT RADIAL
[2019-12-06 05:47] LABS: Arterial Blood Gas PEEP 5 cmH2O; Arterial Blood Gas Vent Mode CMV; Arterial Blood Gas Ventilator rate 26 /MIN; Device VENTILATOR
[2019-12-06 05:48] LABS: Arterial Blood Gas Pressure Support 0 cmH2O; Arterial Blood Gas Tidal Volume 400 ml
[2019-12-06] MEDS: CENTRAL LINE FLUSH 10 ML IV PUSH ×3 (05:50→21:42)
[2019-12-06] MEDS: DORNASE ALFA INH SOLN 1 MG/ML 2.5 ML AMP 2.5 MG INHALATION ×2 (08:20→20:15)
[2019-12-06] MEDS: BUDESONIDE RESPULE NEB 0.5 MG/2 ML AMP INHALATION ×2 (08:20→20:16)
[2019-12-06] MEDS: polyethylene glycoL 3350 17 GM POWD.PACK PO (08:38)
[2019-12-06] MEDS: FUROSEMIDE INJ 40 MG/4 ML VIAL IV PUSH (08:38)
[2019-12-06] MEDS: TAMSULOSIN HCL 0.4 MG CAPSULE PO (08:38)
[2019-12-06] MEDS: PANTOPRAZOLE SODIUM IV 40 MG VIAL IV PUSH (08:38)
[2019-12-06] MEDS: ENOXAPARIN 100 MG/ML SYRINGE 85 MG SUB-Q ×2 (08:38→21:42)
--- NOTE | 2019-12-06 09:25 | WPDINTPN ---
Progress Note: A&P Assessment and Plan (1) Respiratory failure: Qualifiers: Chronicity: acute on chronic Respiratory failure complication: hypoxia and hypercapnia Qualified Code(s): J96.21 - Acute and chronic respiratory failure with hypoxia; J96.22 - Acute and chronic respiratory failure with hypercapnia Code(s): J96.90 - Respiratory failure, unspecified, unspecified whether with hypoxia or hypercapnia Status: Acute Assessment and Plan: patient presented with shortness of breath likely related to pneumonia, pulmonary embolism, interstitial lung disease, lung cancer. ARDS Patient intubated on 11/28/2019. endotracheal tube changed on 12/03 - chest x-ray and ABG reviewed - decrease PEEP to 10 today. Wean FiO2 if possible - continue low tidal volume strategy and high peep. weaning FiO2, ventilator adjusted - continue cefepime, vancomycin. Azithromycin discontinued after 7 days - sputum cultures mixed bacterial mary personal service representative of lower respiratory tract specimen - sedated with fentanyl and propofol. OFF Nimbex and Versed. Wean sedation if possible - will try to keep the intake and output balanced to avoid fluid overload contributing as pulmonary edema and respiratory failure. Patient is off of IV fluids. he is positive by 5 L. Echocardiogram showed dilated IVC. continue daily Lasix (2) Pulmonary embolism: Onset Date: ~11/2019 Qualifiers: Pulmonary embolism type: single subsegmental (without acute cor pulmonale) Qualified Code(s): I26.93 - Single subsegmental pulmonary embolism without acute cor pulmonale Code(s): I26.99 - Other pulmonary embolism without acute cor pulmonale Status: Acute Assessment and Plan: CT PE protocol revealed subsegmental pulmonary embolism in the left lower lobe with small thrombus burden. - Continue Lovenox therapeutic dose (3) Pneumonia: Qualifiers: Laterality: bilateral Lung location: unspecified part of lung Pneumonia type: due to unspecified organism Qualified Code(s): J18.9 - Pneumonia, unspecified organism Code(s): J18.9 - Pneumonia, unspecified organism Status: Acute Assessment and Plan: mixed interstitial and airspace disease throughout both lungs which may represent a combination of pneumonia, metastatic disease, fibrosis, edema. - Continue antibiotics as above - continue bronchodilators - patient is thick secretions in ETT, continue Pulmozyme (4) Lung cancer: Qualifiers: Laterality: right Lung location: upper lobe of lung Qualified Code(s): C34.11 - Malignant neoplasm of upper lobe, right bronchus or lung Code(s): C34.90 - Malignant neoplasm of unspecified part of unspecified bronchus or lung Status: Chronic Assessment and Plan: records obtained from [facility] oncology. 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 He received chemotherapy with etoposide and cisplatin and radiotherapy. patient is supposed to follow-up with [facility] for restaging CT chest abdomen pelvis and head CT. 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 - continue steroids, - appreciate pulmonology evaluation and recommendation - Pt on high dose steroids for 5 days started on 12/01/2019 per pulmonology (6) Atrial fibrillation with RVR: Code(s): I48.91 - Unspecified atrial fibrillation Status: Acute Assessment and Plan: on admission patient was in AFib RVR and was started on Cardizem per Cardiology, blood pressures were borderline so Cardizem infusion was discontinued on 11/29/2019. - AFib most likely related to respiratory distress and hypoxemia - Currently in sinus
[2019-12-06 09:27] LABS: Glucose Point of Care 197 (65-105)
--- NOTE | 2019-12-06 11:24 | PCDIET ---
Nutrition Follow-Up Complete: Nutrition Diagnosis: Increased nutrient needs R/T increased protein demands as evidenced by estimated needs of 98-115 grams of protein daily. Nutrition Goal: Total intake will meet estimated kcal and protein needs Goal met. Patient tolerating Vital 1.5 at 60mL/hr goal rate with residuals 170mL and below. Last recorded weight is 82.3 kg which is slightly decreased. -I/O noted. Bowel Motility: +BM x 2 on 12/05/19. Labs Reviewed: Glu (196), BUN (82), Ca (8.0), TG (261), Hgb (10.8), Hct (32.0) Meds Noted: Cefepime, Novolog, Miralax, Fentanyl, Atrovent, Vancomycin, Lasix, Solu Medrol, Protonix, Versed Additional Notes: Propofol on hold at this time. No albumin available for calcium correction. Recommend checking albumin level. No documented skin breakdown. Will continue to monitor with same goal. Nutrition Monitoring and Evaluation: Follow up every Thursday/Thursday. Follow daily in ICU rounds.
[2019-12-06] MEDS: INSULIN ASPART (*BKC) 100 UNITS/ML SUB-Q (12:02)
[2019-12-06 12:15] LABS: Glucose Point of Care 217 (65-105)
[2019-12-06 17:50] LABS: Glucose Point of Care 160 (65-105)
--- NOTE | 2019-12-06 18:34 | PM.IMPN ---
Progress Note: A&P Assessment and Plan (1) Respiratory failure: Qualifiers: Chronicity: acute on chronic Respiratory failure complication: hypoxia and hypercapnia Qualified Code(s): J96.21 - Acute and chronic respiratory failure with hypoxia; J96.22 - Acute and chronic respiratory failure with hypercapnia Code(s): J96.90 - Respiratory failure, unspecified, unspecified whether with hypoxia or hypercapnia Status: Acute Assessment and Plan: Continue to support on vent FIO2 back up to 55 % Wean as possible (2) Acute respiratory distress syndrome (ARDS): Code(s): J80 - Acute respiratory distress syndrome Status: Acute Assessment and Plan: Continue to support with ARDS protocol (3) Pulmonary embolism: Onset Date: ~11/2019 Qualifiers: Pulmonary embolism type: single subsegmental (without acute cor pulmonale) Qualified Code(s): I26.93 - Single subsegmental pulmonary embolism without acute cor pulmonale Code(s): I26.99 - Other pulmonary embolism without acute cor pulmonale Status: Acute Assessment and Plan: Continue heparin (4) Pneumonia: Qualifiers: Laterality: bilateral Lung location: unspecified part of lung Pneumonia type: due to unspecified organism Qualified Code(s): J18.9 - Pneumonia, unspecified organism Code(s): J18.9 - Pneumonia, unspecified organism Status: Acute Assessment and Plan: Vanc, cefepime Day 9 antibiotics (5) Lung cancer: Qualifiers: Laterality: right Lung location: upper lobe of lung Qualified Code(s): C34.11 - Malignant neoplasm of upper lobe, right bronchus or lung Code(s): C34.90 - Malignant neoplasm of unspecified part of unspecified bronchus or lung Status: Chronic Assessment and Plan: NSCLC Currently not receiving chemotherapy (6) Chronic interstitial lung disease: Code(s): J84.9 - Interstitial pulmonary disease, unspecified Status: Chronic Assessment and Plan: 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 (8) Atrial fibrillation with RVR: Code(s): I48.91 - Unspecified atrial fibrillation Status: Acute Assessment and Plan: Off diltiazem since 11/28 Resolved and now in NSR EF 55% by echo Subjective Date/time seen: 12/06/19 18:34 Interval history: Date of visit 12/05. [age] COPD admitted with pneumonia and respiratory failure. Tube replaced 12/03 for worsening respiratory failure and hypoxia. FiO2 is stable at 55%. 12 PEEP. Exam Narrative: Exam Narrative: Blood pressure 134/72 pulse is 100 saturating 92% on FiO2 of 55 with 10 of PEEP HEENT: PERRL, sclearae nonicteric,, ET tube in place NECK: No JVD CHEST: Coarse BS with scattered crackles HEART: NL S1/S2, regular, no murmur ABDOMEN: BS+, soft, nontender, EXTREMITIES: No cyanosis, edema, NEUROLOGIC: Sedated MUSCULOSKELETAL: . PSYCH: sedated Objective Data Vital Signs Vital Signs: Vital Signs - 24 hr 12/05/19 19:45 12/05/19 19:48 12/05/19 20:00 Temperature 37.0 C Pulse Rate 117 H 116 H 119 H Respiratory Rate 26 H 26 H Blood Pressure 114/64 Pulse Oximetry 94 94 12/05/19 20:34 12/05/19 20:45 12/05/19 22:00 Temperature Pulse Rate 114 H 112 H 103 H Respiratory Rate 26 H 26 H 26 H Blood Pressure 106/69 Pulse Oximetry 95 95 12/06/19 00:00 12/06/19 02:00 12/06/19 02:50 Temperature 36.6 C Pulse Rate 12 L 101 H 105 H Respiratory Rate 26 H 26 H 26 H Blood Pressure 116/
[2019-12-07] VITALS (25 sets, daily range): BP systolic 108–185; BP diastolic 65–106; PULSE 91–140; RESP 16–35; TEMP 36.4–37.7; O2SAT 90–97
[2019-12-07] MEDS: methylPREDNISolone SOD SUCC 125 MG VIAL IV PUSH ×2 (00:01→05:51)
[2019-12-07 00:12] LABS: Glucose Point of Care 199 (65-105)
[2019-12-07] MEDS: IPRATROPIUM BR 0.02% INH SOLN 0.5 MG/2.5 ML VIAL INHALATION ×4 (02:49→20:39)
[2019-12-07] MEDS: PROPOFOL IV EMULSION 100 ML 15 MG IV CONT (03:44)
[2019-12-07 04:51] LABS: Hematocrit 36.3 % (42.0-52.0); Hemoglobin 11.6 g/dL (14.0-18.0); Mean Corpuscular Hemoglobin 31.4 pg (26-34); Mean Corpuscular Volume 98.4 fl (80-100); Mean Platelet Volume 12.1 fl (7.4-10.4); Platelet Count Result 146 k/mm3 (150-375); Red Blood Count 3.69 M/mm3 (4.6-6.20); Red Cell Distribution Width 13.9 % (11.5-14.5); White Blood Count 23.1 K/mm3 (4.5-10.0)
[2019-12-07 05:06] LABS: Blood Urea Nitrogen 108 mg/dL (9-20); Calcium 8.2 mg/dL (8.4-10.2); Carbon Dioxide 35 mmol/L (22-30); Chloride 107 mmol/L (98-107); Estimated CRCL calculation 50 ml/min; Estimated Glomerular Filt Rate 52; Glucose 223 mg/dL (75-110); Phosphorus 3.6 mg/dL (2.5-4.5); Potassium 4.2 mmol/L (3.4-5.0); Sodium 144 mmol/L (137-145)
[2019-12-07 05:26] LABS: Alveolar/Arterial O2 Gradient 270.6 mmHg; Base Excess ABG 4.1 mEq/l (+/-2.0); Carboxyhemoglobin 0.4 % THb (0-2.0); Fractional Inspired Oxygen 55 %; HCO3 ABG 30.2 mEq/l (22.0-26.0); Methemoglobin ABG 0.5 %THb (0-1.5); Oxygen Content ABG 22.5 %vol (16.0-22.0); Oxygen Saturation ABG 92.8 % (95.0-100.0); Oxyhemoglobin 91.8 % THb (90.0-100.0); PO2 ABG 65.9 mmHg (80.0-100.0); Reduced Hemoglobin 7.3 %THb (0-5.0); Total Hemoglobin 17.5 g/dL (12.0-18.0); pH ABG 7.399 (7.350-7.450)
[2019-12-07 05:27] LABS: Arterial Blood Gas Ventilator rate 26 /MIN; Device VENTILATOR; Modified Allen's Test Pass; Site Drawn LEFT RADIAL
[2019-12-07 05:28] LABS: Arterial Blood Gas PEEP 10 cmH2O; Arterial Blood Gas Tidal Volume 400 ml; Arterial Blood Gas Vent Mode CMV
[2019-12-07 05:37] LABS: Glucose Point of Care 198 (65-105)
[2019-12-07] MEDS: CENTRAL LINE FLUSH 10 ML IV PUSH ×2 (05:51→14:38)
--- NOTE | 2019-12-07 08:00 | WPDINTPN ---
Progress Note: A&P Assessment and Plan (1) Respiratory failure: Qualifiers: Chronicity: acute on chronic Respiratory failure complication: hypoxia and hypercapnia Qualified Code(s): J96.21 - Acute and chronic respiratory failure with hypoxia; J96.22 - Acute and chronic respiratory failure with hypercapnia Code(s): J96.90 - Respiratory failure, unspecified, unspecified whether with hypoxia or hypercapnia Status: Acute Assessment and Plan: patient presented with shortness of breath likely related to pneumonia, pulmonary embolism, interstitial lung disease, lung cancer. ARDS Patient intubated on 11/28/2019. endotracheal tube changed on 12/03 - chest x-ray and ABG reviewed - I will need to increase PEEP back to 12.. Wean FiO2 if possible - Patient did not tolerate lowering of sedation hence will have to go back up on propofol to prevent patient ventilator dyssynchrony - continue low tidal volume strategy and high peep. weaning FiO2 - patient has been cefepime, vancomycin. Azithromycin discontinued after 7 days. all cultures have been negative till now. I will discontinue vancomycin at this time as patient has been on it for more than 7 days. I will continue cefepime for total of 14 days. 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 OFF Nimbex and Versed. - will try to keep the intake and output balanced to avoid fluid overload contributing as pulmonary edema and respiratory failure. Patient is off of IV fluids. he Was positive by 5 L. Echocardiogram showed dilated IVC. patient was given daily Lasix for last few days. Will hold further Lasix due to increase in creatinine (2) Pulmonary embolism: Onset Date: ~11/2019 Qualifiers: Pulmonary embolism type: single subsegmental (without acute cor pulmonale) Qualified Code(s): I26.93 - Single subsegmental pulmonary embolism without acute cor pulmonale Code(s): I26.99 - Other pulmonary embolism without acute cor pulmonale Status: Acute Assessment and Plan: CT PE protocol revealed subsegmental pulmonary embolism in the left lower lobe with small thrombus burden. - Continue Lovenox therapeutic dose (3) Pneumonia: Qualifiers: Laterality: bilateral Lung location: unspecified part of lung Pneumonia type: due to unspecified organism Qualified Code(s): J18.9 - Pneumonia, unspecified organism Code(s): J18.9 - Pneumonia, unspecified organism Status: Acute Assessment and Plan: mixed interstitial and airspace disease throughout both lungs which may represent a combination of pneumonia, metastatic disease, fibrosis, edema. - Continue antibiotics as above - continue bronchodilators - patient is thick secretions in ETT, continue Pulmozyme (4) Lung cancer: Qualifiers: Laterality: right Lung location: upper lobe of lung Qualified Code(s): C34.11 - Malignant neoplasm of upper lobe, right bronchus or lung Code(s): C34.90 - Malignant neoplasm of unspecified part of unspecified bronchus or lung Status: Chronic Assessment and Plan: records obtained from [facility] oncology. 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 He received chemotherapy with etoposide and cisplatin and radiotherapy. patient is supposed to follow-up with [facility] Oncology for restaging CT chest abdomen pelvis and head CT. 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 - continue steroids, - appreciate pulmonology evaluation and recommendation - Pt on high dose steroids for 5 days started on 12/01/2019 per pulmonology. will decrease
[2019-12-07] MEDS: DORNASE ALFA INH SOLN 1 MG/ML 2.5 ML AMP 2.5 MG INHALATION ×2 (08:28→20:38)
[2019-12-07] MEDS: BUDESONIDE RESPULE NEB 0.5 MG/2 ML AMP INHALATION ×2 (08:28→20:38)
[2019-12-07] MEDS: PROPOFOL IV EMULSION 100 ML 25 MG IV CONT ×5 (08:47→23:56)
[2019-12-07] MEDS: PANTOPRAZOLE SODIUM IV 40 MG VIAL IV PUSH (09:01)
[2019-12-07] MEDS: INSULIN GLARGINE (*BKC) 100 UNITS/ML 15 UNITS SUB-Q (09:01)
[2019-12-07] MEDS: ENOXAPARIN 100 MG/ML SYRINGE 85 MG SUB-Q ×2 (09:01→22:14)
[2019-12-07] MEDS: TAMSULOSIN HCL 0.4 MG CAPSULE PO (09:02)
[2019-12-07] MEDS: SODIUM CHLORIDE 0.9% IV 1,000 ML 100 ML IV CONT (09:25)
[2019-12-07] MEDS: LORAZEPAM INJ 2 MG/ML VIAL IV PUSH (10:57)
--- NOTE | 2019-12-07 11:12 | PCDIET ---
ICU Rounding Note: Patient continues to tolerate Vital 1.5 at 60mL/hr. RN reports 200mL residual earlier today; all other residuals 60mL and below. Discussed with MD possible change to Glucerna 1.2 at 50mL/hr goal rate for 1320kcal (1980kcal with Propofol at current rate), 66g protein and 885mL free water. MD ordered recommended changes for potentially improved glucose control. Last recorded weight is 81.3kg which is decreased. I/O negative. Bowel Motility: Liquid BMs reported. Labs Reviewed: Glu (223), BUN (108), Cr (1.4), Hgb (11.6), Hct (36.3) Meds Noted: Maxipime, Novolog, Atrovent, Protonix, Fentanyl, Lantus, Solu Medrol, Miralax, Propofol (25mL/hr provides 660kcal over 24 hour period) Additional Notes: No skin breakdown reported. Will not recommend protein flushes at this time due to bump in creatinine. Lasix discontinued. Following daily in ICU rounds. Assessing/reassessing every Thursday/Thursday
--- NOTE | 2019-12-07 11:30 | P.PNCROSS_ITS ---
Event Note Event Note Event Note: Patient's met with Roving Department Supervisor and then discussed with her family and later decided, in accordance with pt's wishes, to continue medical therapy but do not resuscitate pt in case of cardiac arrest. I confirmed this with patient's in presence of nurse Hong. I have made pt DNR in chart.
[2019-12-07 13:18] LABS: Glucose Point of Care 197 (65-105)
--- NOTE | 2019-12-07 14:10 | PM.PNPUL ---
Progress Note: A&P Assessment and Plan (1) Acute respiratory distress syndrome (ARDS): Code(s): J80 - Acute respiratory distress syndrome Status: Acute Assessment and Plan: Continue low tidal volume strategy, current at 400 ml; It has not been possible to wean the PEEP due to oxygenation issues, now on 70%, 12 PEEP. CXR is still extremely abnormal. There is no good option for improving his oxygenation at this point, other than considering neuromuscular blockade to improve synchrony with the ventilator. He has compensated respiratory acidosis. - continue multiple sedatives, Cefepime and vancomycin, bronchodilator, steroids (2) ILD (interstitial lung disease): Code(s): J84.9 - Interstitial pulmonary disease, unspecified Status: Acute Assessment and Plan: This may be IPF exacerbation which is very lethal. - continue steroids. - there is a slight increased risk of critical illness polyneuropathy with use of systemic steroids and paralytics. - consider using foot drop boots and PT to do range of motion while intubated. (3) Pneumonia: Qualifiers: Laterality: bilateral Lung location: unspecified part of lung Pneumonia type: due to unspecified organism Qualified Code(s): J18.9 - Pneumonia, unspecified organism Code(s): J18.9 - Pneumonia, unspecified organism Status: Acute Assessment and Plan: -Agree with current antibiotic regimen. WBC is increasing now 23K, was 15K. - concomittentant viral infection is unknown but less likely given response to antibiotics Subjective Date/time seen: 12/07/19 14:10 Interval history: He remains critically ill, FiO2 is increased at 70%, PEEP 12. His is at the bedside. He has been ill on the vent 11 days, and Dr Roberts is talking to the family about trach and PEG. With his lung cancer, ILD, COPD and need for high doses of sedatives, he is not able to be weaned at this point. He is not on pressors. He is on 3 sedatives to try to avoid re-starting muscle relaxants; he is still mildly dysynchronous with the ventilator. WBC increased to 23K. fentanyl 150 mcg; propofol 50, and precedex Discussed with Dr. Roberts *oncologist = Dasha; regular supply chain assistant is Dr Jesus Evans in [facility]. Review of Systems Review of Systems: ROS unobtainable: other (not obtainable due to intubation, sedation. ) Exam Narrative: Exam Narrative: Intubated and sedated Const: General: comfortable and no acute distress HENMT: Mouth: Yes moist mucous membranes Neck: Neck: supple and no JVD Resp: Auscultation: no crackles, no rhonchi, no wheezes and diminished lung sounds Cardio: Rate: regular rate Rhythm: regular rhythm GI: Auscultation: normal bowel sounds Skin: General skin exam: normal color and no rashes or lesions noted Extrem: General: normal to inspection, no edema and pedal edema (trace edema in ankles, 2+ in upper extremities) Objective Data Vital Signs Vital Signs: Vital Signs - 24 hr 12/06/19 14:25 12/06/19 14:26 12/06/19 14:37 Temperature Pulse Rate 108 H 108 H 110 H Respiratory Rate 28 H 26 H Blood Pressure Pulse Oximetry 93 12/06/19 16:00 12/06/19 16:55 12/06/19 18:00 Temperature 37.2 C Pulse Rate 109 H 104 H 106 H Respiratory Rate 30 H 26 H Blood Pressure 135/73 153/78 H Pulse Oximetry 93 94 92 12/06/19 20:00 12/06/19 20:16 12/06/19 20:17 Temperature 37.3 C Pulse Rate 114 H 112 H 112 H Respiratory Rate 26 H 34 H Blood Pressure 156/77 H Pulse Oximetry 92 92 12/06/19 20:33 12/06/19 22:00 12/06/19 23:30 Temperature Pulse Rate 109 H 123 H 117 H Respiratory Rate 28 H 26 H Blood Pressure 166/78 H Pulse Oximetry 92 93 12/07/19 00:00 12/07/19 02:00 12/07/19 02:48 Temperature 37.7 C H Pulse Rate 113 H 125 H 118 H Respiratory Rate 26 H 26 H 35 H Blood Pressure 122/76 150/65 H Pulse Oximetry 92 92 90 12/07/19 02:58 12/07/19 04:00 12/07/19 05:15 Temp
--- NOTE | 2019-12-07 17:25 | PM.IMPN ---
Progress Note: A&P Assessment and Plan (1) Respiratory failure: Qualifiers: Chronicity: acute on chronic Respiratory failure complication: hypoxia and hypercapnia Qualified Code(s): J96.21 - Acute and chronic respiratory failure with hypoxia; J96.22 - Acute and chronic respiratory failure with hypercapnia Code(s): J96.90 - Respiratory failure, unspecified, unspecified whether with hypoxia or hypercapnia Status: Acute Assessment and Plan: Continue to support on vent FIO2 back up to 60 % Wean as possible (2) Acute respiratory distress syndrome (ARDS): Code(s): J80 - Acute respiratory distress syndrome Status: Acute Assessment and Plan: Continue to support with ARDS protocol (3) Pulmonary embolism: Onset Date: ~11/2019 Qualifiers: Pulmonary embolism type: single subsegmental (without acute cor pulmonale) Qualified Code(s): I26.93 - Single subsegmental pulmonary embolism without acute cor pulmonale Code(s): I26.99 - Other pulmonary embolism without acute cor pulmonale Status: Acute Assessment and Plan: Continue full dose lovenox (4) Pneumonia: Qualifiers: Laterality: bilateral Lung location: unspecified part of lung Pneumonia type: due to unspecified organism Qualified Code(s): J18.9 - Pneumonia, unspecified organism Code(s): J18.9 - Pneumonia, unspecified organism Status: Acute Assessment and Plan: , cefepime Day 10 antibiotics, Vanc d/leonel (5) Lung cancer: Qualifiers: Laterality: right Lung location: upper lobe of lung Qualified Code(s): C34.11 - Malignant neoplasm of upper lobe, right bronchus or lung Code(s): C34.90 - Malignant neoplasm of unspecified part of unspecified bronchus or lung Status: Chronic Assessment and Plan: NSCLC Currently not receiving chemotherapy (6) Chronic interstitial lung disease: Code(s): J84.9 - Interstitial pulmonary disease, unspecified Status: Chronic Assessment and Plan: 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 (8) Atrial fibrillation with RVR: Code(s): I48.91 - Unspecified atrial fibrillation Status: Acute Assessment and Plan: Off diltiazem since 11/28 Resolved and now in NSR EF 55% by echo Subjective Date/time seen: 12/07/19 17:25 Interval history: Date of visit 12/06. 58 y/o COPD admitted with pneumonia and respiratory failure. Tube replace 3/3 for worsening respiratory failure and hypoxia. FiO2 is at 60%. 12 PEEP. Sedated Exam Narrative: Exam Narrative: Blood pressure 110/80 pulse is 62 saturating 92% on FiO2 of 60 with 12 of PEEP HEENT: PERRL, sclearae nonicteric,, ET tube in place NECK: No JVD CHEST: Coarse BS with scattered crackles HEART: NL S1/S2, regular, no murmur ABDOMEN: BS+, soft, nontender, EXTREMITIES: No cyanosis, edema, NEUROLOGIC: Sedated . PSYCH: sedated Objective Data Vital Signs Vital Signs: Vital Signs - 24 hr 12/06/19 18:00 12/06/19 20:00 12/06/19 20:16 Temperature 37.3 C Pulse Rate 106 H 114 H 112 H Respiratory Rate 26 H 26 H Blood Pressure 153/78 H 156/77 H Pulse Oximetry 92 92 92 12/06/19 20:17 12/06/19 20:33 12/06/19 22:00 Temperature Pulse Rate 112 H 109 H 123 H Respiratory Rate 34 H 28 H 26 H Blood Pressure 166/78 H Pulse Oximetry 92 12/06/19 23:30 12/07/19 00:00 12/07/19 02:00 Temperature 37.7 C H Pulse Rate 117 H 113 H 125 H Respiratory Rate 26 H 26 H Blood Pr
[2019-12-07 17:44] LABS: Glucose Point of Care 185 (65-105)
[2019-12-08] VITALS (28 sets, daily range): BP systolic 94–150; BP diastolic 66–108; PULSE 8–116; RESP 26–30; TEMP 36.5–37.1; O2SAT 88–99
[2019-12-08] MEDS: IPRATROPIUM BR 0.02% INH SOLN 0.5 MG/2.5 ML VIAL INHALATION ×4 (02:00→19:54)
[2019-12-08] MEDS: CENTRAL LINE FLUSH 10 ML IV PUSH ×4 (02:01→19:54)
[2019-12-08 02:46] LABS: Glucose Point of Care 127 (65-105)
[2019-12-08 04:34] LABS: Alveolar/Arterial O2 Gradient 332.6 mmHg; Base Excess ABG 7.4 mEq/l (+/-2.0); Carboxyhemoglobin 0.2 % THb (0-2.0); Fractional Inspired Oxygen 70 %; Methemoglobin ABG 0.4 %THb (0-1.5); Oxygen Content ABG 14.6 %vol (16.0-22.0); Oxyhemoglobin 96.7 % THb (90.0-100.0); PO2 ABG 110.6 mmHg (80.0-100.0); PO2 FiO2 Ratio Arterial Blood 1.58 %; Reduced Hemoglobin 2.7 %THb (0-5.0); Total Hemoglobin 10.6 g/dL (12.0-18.0); pH ABG 7.421 (7.350-7.450)
[2019-12-08 04:35] LABS: Arterial Blood Gas PEEP 12 cmH2O; Arterial Blood Gas Tidal Volume 400 ml; Arterial Blood Gas Vent Mode CMV; Arterial Blood Gas Ventilator rate 26 /MIN; Device VENTILATOR; Site Drawn RIGHT BRACHIAL
[2019-12-08] MEDS: PROPOFOL IV EMULSION 100 ML 5 MG IV CONT (06:01)
[2019-12-08 06:10] LABS: Hematocrit 32.4 % (42.0-52.0); Hemoglobin 10.2 g/dL (14.0-18.0); Mean Corpuscular HGB Conc 31.5 g/dl (32-36); Mean Corpuscular Hemoglobin 31.4 pg (26-34); Mean Corpuscular Volume 99.7 fl (80-100); Mean Platelet Volume 12.6 fl (7.4-10.4); Platelet Count Result 106 k/mm3 (150-375); Red Blood Count 3.25 M/mm3 (4.6-6.20); Red Cell Distribution Width 13.9 % (11.5-14.5); White Blood Count 22.4 K/mm3 (4.5-10.0)
[2019-12-08 07:00] LABS: Alanine Aminotransferase 88 U/L (4-50); Albumin Level 2.7 g/dL (3.5-5.1); Alkaline Phosphatase 70 U/L (38-126); Aspartate Amino Transferase 28 U/L (17-59); Bilirubin,Total 0.4 mg/dL (0.2-1.3); Calcium 8.2 mg/dL (8.4-10.2); Carbon Dioxide 32 mmol/L (22-30); Chloride 109 mmol/L (98-107); Estimated CRCL calculation 30 ml/min; Estimated Glomerular Filt Rate 28; Glucose 105 mg/dL (75-110); Magnesium 3.4 mg/dL (1.6-2.3); Sodium 146 mmol/L (137-145); Triglycerides 239 mg/dL (<150)
[2019-12-08 07:01] LABS: Blood Urea Nitrogen 132 mg/dL (9-20)
[2019-12-08] MEDS: methylPREDNISolone SOD SUCC 125 MG VIAL IV PUSH (07:16)
[2019-12-08] MEDS: PANTOPRAZOLE SODIUM IV 40 MG VIAL IV PUSH (07:16)
[2019-12-08] MEDS: ENOXAPARIN 100 MG/ML SYRINGE 85 MG SUB-Q ×2 (07:16→19:53)
[2019-12-08] MEDS: TAMSULOSIN HCL 0.4 MG CAPSULE PO (07:17)
[2019-12-08] MEDS: INSULIN GLARGINE (*BKC) 100 UNITS/ML 15 UNITS SUB-Q (07:19)
[2019-12-08 07:21] LABS: Glucose Point of Care 101 (65-105)
[2019-12-08 08:37] LABS: Creatine Kinase 66 U/L (55-170)
[2019-12-08] MEDS: BUDESONIDE RESPULE NEB 0.5 MG/2 ML AMP INHALATION ×2 (08:46→19:54)
[2019-12-08] MEDS: DORNASE ALFA INH SOLN 1 MG/ML 2.5 ML AMP 2.5 MG INHALATION ×2 (08:47→19:54)
[2019-12-08] MEDS: SODIUM CHLORIDE 0.45% 1,000 ML 100 ML IV CONT ×2 (08:50→17:08)
--- NOTE | 2019-12-08 09:30 | WPDINTPN ---
Progress Note: A&P Assessment and Plan (1) Respiratory failure: Qualifiers: Chronicity: acute on chronic Respiratory failure complication: hypoxia and hypercapnia Qualified Code(s): J96.21 - Acute and chronic respiratory failure with hypoxia; J96.22 - Acute and chronic respiratory failure with hypercapnia Code(s): J96.90 - Respiratory failure, unspecified, unspecified whether with hypoxia or hypercapnia Status: Acute Assessment and Plan: patient presented with shortness of breath likely related to pneumonia, pulmonary embolism, interstitial lung disease, lung cancer. ARDS Patient intubated on 11/28/2019. endotracheal tube changed on 12/03 - chest x-ray and ABG reviewed - I will need to increase PEEP back to 12.. FiO2 decreased to 65% Wean further if possible - Patient does not tolerate lowering of sedation and develops patient ventilator dyssynchrony leading to desaturation - continue low tidal volume strategy and high peep. - patient has been cefepime, vancomycin. Azithromycin and vancomycin discontinued I will continue cefepime for total of 14 days. - sputum cultures mixed bacterial mary freight representative of lower respiratory tract specimen - sedated with fentanyl and propofol. OFF Nimbex and Versed. - will try to keep the intake and output balanced to avoid fluid overload contributing as pulmonary edema and respiratory failure. Patient is off of IV fluids. he Was positive by 5 L. Echocardiogram showed dilated IVC. patient was given daily Lasix for last few days. Will hold further Lasix due to increase in creatinine (2) Acute respiratory distress syndrome (ARDS): Code(s): J80 - Acute respiratory distress syndrome Status: Acute Assessment and Plan: see above (3) Pulmonary embolism: Onset Date: ~11/2019 Qualifiers: Pulmonary embolism type: single subsegmental (without acute cor pulmonale) Qualified Code(s): I26.93 - Single subsegmental pulmonary embolism without acute cor pulmonale Code(s): I26.99 - Other pulmonary embolism without acute cor pulmonale Status: Acute Assessment and Plan: CT PE protocol revealed subsegmental pulmonary embolism in the left lower lobe with small thrombus burden. - Continue Lovenox therapeutic dose (4) Pneumonia: Qualifiers: Laterality: bilateral Lung location: unspecified part of lung Pneumonia type: due to unspecified organism Qualified Code(s): J18.9 - Pneumonia, unspecified organism Code(s): J18.9 - Pneumonia, unspecified organism Status: Acute Assessment and Plan: mixed interstitial and airspace disease throughout both lungs which may represent a combination of pneumonia, metastatic disease, fibrosis, edema. - Continue antibiotics as above - continue bronchodilators - patient is thick secretions in ETT, continue Pulmozyme (5) Lung cancer: Qualifiers: Laterality: right Lung location: upper lobe of lung Qualified Code(s): C34.11 - Malignant neoplasm of upper lobe, right bronchus or lung Code(s): C34.90 - Malignant neoplasm of unspecified part of unspecified bronchus or lung Status: Chronic Assessment and Plan: records obtained from [facility] oncology. 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 He received chemotherapy with etoposide and cisplatin and radiotherapy. patient is supposed to follow-up with [facility] Oncology for restaging CT chest abdomen pelvis and head CT. 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 - continue steroids, - appreciate pulmonology evaluation and recommendation - Pt on high dose steroids for 5 days started on 11/30
[2019-12-08 11:46] LABS: Glucose Point of Care 114 (65-105)
--- NOTE | 2019-12-08 12:42 | PM.CNGS ---
Assessment and Plan Assessment and plan (1) Hematoma: Code(s): T14.8XXA - Other injury of unspecified body region, initial encounter Status: Acute Assessment and Plan: The patient has evidence of a large left upper arm hematoma. CT scan shows that this extends into his left biceps and brachialis muscles. He is currently on therapeutic-dosed Lovenox for treatment of a PE. There is not a clear etiology for the hematoma but it is suspected that this was caused by either vascular blood draws in the antecubital area or trauma of the blood pressure cuff, more likely that this is from drawing blood in this area. Circulation of the left arm is still intact. The patient has an overall poor prognosis. Typically, we would recommend to stop his current anticoagulation, but given his overall status, he would likely continue to decompensate. The hematoma is not amenable for bedside drainage and would have to be drained in the OR due to the size and extent of the hematoma if that was needed in the future, and there is still a concern of this continuing to bleed if we attempted to drain this intramuscular hematoma. The family apparently had a discussion about comfort measures with the Special Education Supervisor today and is considering withdrawing care. At this time, we would recommend to continue with conservative management. We will ask the nurse to apply an KYARA wrap to the left upper arm for compression and continue to elevate the left upper extremity. Avoid any arm sticks or blood pressure readings on the left arm. Dr. Leach will also be evaluating the patient separately today. Thank you for allowing me to see the patient in consultation and we will continue to follow along with you. (2) Pulmonary embolism: Onset Date: ~11/2019 Qualifiers: Pulmonary embolism type: single subsegmental (without acute cor pulmonale) Qualified Code(s): I26.93 - Single subsegmental pulmonary embolism without acute cor pulmonale Code(s): I26.99 - Other pulmonary embolism without acute cor pulmonale Status: Acute Assessment and Plan: Currently on therapeutic Lovenox. See plan above. (3) Acute respiratory distress syndrome (ARDS): Code(s): J80 - Acute respiratory distress syndrome Status: Acute (4) Pneumonia: Qualifiers: Laterality: bilateral Lung location: unspecified part of lung Pneumonia type: due to unspecified organism Qualified Code(s): J18.9 - Pneumonia, unspecified organism Code(s): J18.9 - Pneumonia, unspecified organism Status: Acute (5) Lung cancer: Qualifiers: Laterality: right Lung location: upper lobe of lung Qualified Code(s): C34.11 - Malignant neoplasm of upper lobe, right bronchus or lung Code(s): C34.90 - Malignant neoplasm of unspecified part of unspecified bronchus or lung Status: Chronic (6) Chronic interstitial lung disease: Code(s): J84.9 - Interstitial pulmonary disease, unspecified Status: Chronic (7) OLIVE (acute kidney injury): Code(s): N17.9 - Acute kidney failure, unspecified Status: Acute Additional Plan Discussed the patient's case and plan of care with Dr. Leach. 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 He is currently intubated and sedated in the intensive care unit, therefore his history is obtained from his and his electronic medical record. He presented to the emergency department on November 28, 2019 with complaints of worsening shortness of breath and cough. He was found to have a subsegmental pulmonary embolus in the left lower lobe with a small thrombus burden, progression of his interstit
[2019-12-08] MEDS: PROPOFOL IV EMULSION 100 ML 12.5 MG IV CONT ×2 (13:38→20:56)
--- NOTE | 2019-12-08 13:43 | PCDIET ---
Nutrition Follow-Up Complete: Nutrition Diagnosis: Increased nutrient needs R/T increased protein demands as evidence by est needs of 98-115 grams of protein daily Nutrition Goal: Total intake will meet estimated kcal and protein needs Goal not met. Patient was changed to Glucerna 1.2 at 20mL/hr and held earlier today for 300mL residual. Rate now at 10mL/hr. If medically appropriate, would consider prokinetic agent and/or advancing tube post-pylorus. Last recorded weight is 81.3 kg which is stable. Bowel Motility: +BM today. Labs Reviewed: TG (239), BUN (132), Cr (2.4), Na (146) Meds Noted:0.45NaCl at 100mL/hr, Propofol (10mL/hr providing 264kcal over 24 hour period), Cefepime, Precedex, Colace, Fentanyl, Novolog, Lantus, Atrovent, Solu Medrol, Protonix Additional Notes: Hematoma to left upper arm; no open sores documented. Will continue to monitor with same goal. Nutrition Monitoring and Evaluation: Follow up every Thursday/Thursday. Follow daily in ICU rounds.
--- NOTE | 2019-12-08 15:10 | PM.IMPN ---
Progress Note: A&P Assessment and Plan (1) Respiratory failure: Qualifiers: Chronicity: acute on chronic Respiratory failure complication: hypoxia and hypercapnia Qualified Code(s): J96.21 - Acute and chronic respiratory failure with hypoxia; J96.22 - Acute and chronic respiratory failure with hypercapnia Code(s): J96.90 - Respiratory failure, unspecified, unspecified whether with hypoxia or hypercapnia Status: Acute Assessment and Plan: Continue to support on vent FIO2 back up to 70 % Wean as possible Secondary to pneumonia, interstitial lung disease, and lung carcinoma, (2) Acute respiratory distress syndrome (ARDS): Code(s): J80 - Acute respiratory distress syndrome Status: Acute Assessment and Plan: Continue to support with ARDS protocol (3) Pulmonary embolism: Onset Date: ~11/2019 Qualifiers: Pulmonary embolism type: single subsegmental (without acute cor pulmonale) Qualified Code(s): I26.93 - Single subsegmental pulmonary embolism without acute cor pulmonale Code(s): I26.99 - Other pulmonary embolism without acute cor pulmonale Status: Acute Assessment and Plan: Continue full dose lovenox for now but would consider stopping with large left arm hematoma and only 1 segmental area on CTA (4) Pneumonia: Qualifiers: Laterality: bilateral Lung location: unspecified part of lung Pneumonia type: due to unspecified organism Qualified Code(s): J18.9 - Pneumonia, unspecified organism Code(s): J18.9 - Pneumonia, unspecified organism Status: Acute Assessment and Plan: , cefepime Day 11 antibiotics, Vanc d/leonel after 10 (5) Lung cancer: Qualifiers: Laterality: right Lung location: upper lobe of lung Qualified Code(s): C34.11 - Malignant neoplasm of upper lobe, right bronchus or lung Code(s): C34.90 - Malignant neoplasm of unspecified part of unspecified bronchus or lung Status: Chronic Assessment and Plan: Neuro endocrine carcinoma. He has received chemo and radiation and was planning on further staging. 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 (8) Atrial fibrillation with RVR: Code(s): I48.91 - Unspecified atrial fibrillation Status: Acute Assessment and Plan: Off diltiazem since 11/28 Resolved and now in NSR EF 55% by echo (9) OLIVE (acute kidney injury): Code(s): N17.9 - Acute kidney failure, unspecified Status: Acute Assessment and Plan: Creatinine up to 2.4 today possibly secondary to over diuresis and fluids will be started per silverware supervisor (10) Hematoma: Code(s): T14.8XXA - Other injury of unspecified body region, initial encounter Status: Acute Assessment and Plan: Spontaneous left arm hematoma. No vascular compromise or elevation of CK. Form Maker Plaster has elected to continue full-dose anticoagulation with the pulmonary emboli (11) Thrombocytopenia: Code(s): D69.6 - Thrombocytopenia, unspecified Status: Acute Assessment and Plan: Platelets have drifted down to 106 K. will check LDH and if goes further down anti-platelet antibodies, LDH, and peripheral smear eval Family has decided on DNR and may progress to comfort care and terminal wean. Subjective Date/time seen: 12/08/19 15:10 I
--- NOTE | 2019-12-08 16:37 | PM.CNNEP ---
Assessment and Plan Assessment and plan (1) OLIVE (acute kidney injury): Code(s): N17.9 - Acute kidney failure, unspecified Status: Acute (2) Respiratory failure: Qualifiers: Chronicity: acute on chronic Respiratory failure complication: hypoxia and hypercapnia Qualified Code(s): J96.21 - Acute and chronic respiratory failure with hypoxia; J96.22 - Acute and chronic respiratory failure with hypercapnia Code(s): J96.90 - Respiratory failure, unspecified, unspecified whether with hypoxia or hypercapnia Status: Acute (3) Pulmonary embolism: Onset Date: ~11/2019 Qualifiers: Pulmonary embolism type: single subsegmental (without acute cor pulmonale) Qualified Code(s): I26.93 - Single subsegmental pulmonary embolism without acute cor pulmonale Code(s): I26.99 - Other pulmonary embolism without acute cor pulmonale Status: Acute (4) Lung cancer: Qualifiers: Laterality: right Lung location: upper lobe of lung Qualified Code(s): C34.11 - Malignant neoplasm of upper lobe, right bronchus or lung Code(s): C34.90 - Malignant neoplasm of unspecified part of unspecified bronchus or lung Status: Chronic (5) Pneumonia: Code(s): J18.9 - Pneumonia, unspecified organism Status: Acute Assessment and Plan: . Additional Plan Elia has suffered an acute insult to his kidneys in the last 24-48 hours. I suspect the insult to his kidneys is multifactorial and is partly due to his acute illness, possible pneumonia, medications, and possibly prerenal factors. His BUN is quite elevated by suspect this is more related to the use of steroids and possibly due to his underlying catabolic state as well. Although he does not have any critical electrolyte abnormalities, I am concerned that his BUN continues to rise any may suffer from consequences related to uremia despite the fact that he is intubated and sedated and is unable to tell us if he has such symptoms. Furthermore, with the drop in his urine output in the last 24 hours, he may also run to problems and issues with regard to fluid overload. I have a long and lengthy discussion with the patient's at bedside (greater than 20 minutes) regarding his deteriorating renal function and the possibility he may require renal replacement therapy/dialysis. She confirmed with me much as she did with the underwater roboticist that her would not want renal replacement therapy/dialysis as a treatment option. Furthermore, she also mentioned that he would not want to be kept alive with artificial means with regard to his placement on the ventilator, tracheostomy, and PEG tube placement as well. At this point, I would continue supportive therapy as is and if his kidney function improves the no other further intervention needs to be done. However, if his kidney function continues to deteriorate particularly with regard to the significant rises in his blood urea nitrogen, the only unfortunate therapy I have to offer is renal replacement therapy/dialysis as this would be the one intervention that could remove the uremic toxins and the same time stabilize his volume status and electrolytes although his electrolytes and volume status are not terrible at this point in time. If she does not want to proceed with tracheostomy and PEG tube placement, then I do not see why we would pursue renal replacement therapy/dialysis as a treatment option and more importantly, it would seem that the patient's does not want to continue such aggressive therapy based on my discussion with her. Hence, I recommend following the labs in the next 24 hours and readdress code status as well as continuity of care with the patient's prior to pursuing invasive therapy/measures that apparently the patient would would not have wanted. I will continue follow patient with you while he remains hospitalized and make further recommendations during his hospital
[2019-12-08 17:16] LABS: Glucose Point of Care 149 (65-105)
[2019-12-08 19:42] LABS: Hematocrit 28.2 % (42.0-52.0); Hemoglobin 9.3 g/dL (14.0-18.0); Mean Corpuscular Hemoglobin 31.8 pg (26-34); Mean Corpuscular Volume 96.6 fl (80-100); Mean Platelet Volume 12.6 fl (7.4-10.4); Platelet Count Result 115 k/mm3 (150-375); Red Blood Count 2.92 M/mm3 (4.6-6.20); White Blood Count 27.4 K/mm3 (4.5-10.0)
--- NOTE | 2019-12-08 22:02 | PM.PNPUL ---
Progress Note: A&P Assessment and Plan (1) Acute respiratory distress syndrome (ARDS): Code(s): J80 - Acute respiratory distress syndrome Status: Acute Assessment and Plan: Continue low tidal volume strategy, current at 400 ml; It has not been possible to wean the PEEP due to oxygenation issues, now on 70%, 12 PEEP. CXR is still extremely abnormal. There is no good option for improving his oxygenation at this point, other than considering neuromuscular blockade to improve synchrony with the ventilator. He has compensated respiratory acidosis. - continue multiple sedatives, Cefepime and vancomycin, bronchodilator, steroids (2) ILD (interstitial lung disease): Code(s): J84.9 - Interstitial pulmonary disease, unspecified Status: Acute Assessment and Plan: This may be IPF exacerbation which is very lethal. - continue steroids. - there is a slight increased risk of critical illness polyneuropathy with use of systemic steroids and paralytics. - consider using foot drop boots and PT to do range of motion while intubated. (3) Pneumonia: Qualifiers: Laterality: bilateral Lung location: unspecified part of lung Pneumonia type: due to unspecified organism Qualified Code(s): J18.9 - Pneumonia, unspecified organism Code(s): J18.9 - Pneumonia, unspecified organism Status: Acute Assessment and Plan: -Agree with current antibiotic regimen. WBC is increasing now 23K, was 15K. - concomittentant viral infection is unknown but less likely given response to antibiotics Subjective Date/time seen: 12/08/19 22:02 Interval history: He remains critically ill, FiO2 is increased at 70%, PEEP 12. His is at the bedside. He has been ill on the vent 11 days, and Dr Roberts is talking to the family about trach and PEG. With his lung cancer, ILD, COPD and need for high doses of sedatives, he is not able to be weaned at this point. He is not on pressors. He is on 3 sedatives to try to avoid re-starting muscle relaxants; he is still mildly dysynchronous with the ventilator. WBC increased to 23K. fentanyl 150 mcg; propofol 50, and precedex Discussed with Dr. Roberts *oncologist = Dasha; regular manager clinic is Dr Jesus Evans in [facility]. Review of Systems Review of Systems: All systems reviewed & are unremarkable except as noted in HPI and below ROS unobtainable: other (not obtainable due to intubation, sedation. ) Exam Narrative: Exam Narrative: Intubated and sedated Const: General: comfortable and no acute distress HENMT: Mouth: Yes moist mucous membranes Neck: Neck: supple and no JVD Resp: Auscultation: no crackles, no rhonchi, no wheezes and diminished lung sounds Cardio: Rate: regular rate Rhythm: regular rhythm GI: Auscultation: normal bowel sounds Skin: General skin exam: normal color and no rashes or lesions noted Extrem: General: normal to inspection, no edema and pedal edema (trace edema in ankles, 2+ in upper extremities) Objective Data Vital Signs Vital Signs: Vital Signs - 24 hr 12/07/19 23:09 12/08/19 00:00 12/08/19 02:00 Temperature 36.5 C Pulse Rate 93 91 8 L Respiratory Rate 26 H 26 H Blood Pressure 114/79 114/79 Pulse Oximetry 96 98 97 12/08/19 02:04 12/08/19 02:07 12/08/19 04:00 Temperature 36.7 C Pulse Rate 81 82 97 Respiratory Rate 26 H 26 H Blood Pressure 97/71 L Pulse Oximetry 98 99 12/08/19 04:45 12/08/19 05:00 12/08/19 06:00 Temperature 36.6 C Pulse Rate 80 98 89 Respiratory Rate 26 H 28 H Blood Pressure 150/90 H Pulse Oximetry 97 99 97 12/08/19 08:00 12/08/19 08:47 12/08/19 08:50 Temperature 36.6 C Pulse Rate 98 99 102 H Respiratory Rate 26 H 26 H Blood Pressure 126/85 Pulse Oximetry
[2019-12-08 23:13] LABS: Glucose Point of Care 155 (65-105)
[2019-12-09] VITALS (17 sets, daily range): BP systolic 73–115; BP diastolic 35–81; PULSE 98–131; RESP 26–34; TEMP 36.7–36.9; O2SAT 87–98
[2019-12-09] MEDS: IPRATROPIUM BR 0.02% INH SOLN 0.5 MG/2.5 ML VIAL INHALATION ×3 (01:48→14:18)
[2019-12-09] MEDS: SODIUM CHLORIDE 0.45% 1,000 ML 100 ML IV CONT (03:04)
[2019-12-09 04:48] LABS: Hematocrit 25.6 % (42.0-52.0); Hemoglobin 8.2 g/dL (14.0-18.0); Immature Platelet Fraction Pct 14.9 % (0.9-11.2); Mean Corpuscular Hemoglobin 31.8 pg (26-34); Mean Corpuscular Volume 99.2 fl (80-100); Mean Platelet Volume 13.4 fl (7.4-10.4); Platelet Count Result 108 k/mm3 (150-375); Red Blood Count 2.58 M/mm3 (4.6-6.20); White Blood Count 26.9 K/mm3 (4.5-10.0)
[2019-12-09 05:23] LABS: Alanine Aminotransferase 61 U/L (4-50); Albumin Level 2.4 g/dL (3.5-5.1); Alkaline Phosphatase 63 U/L (38-126); Aspartate Amino Transferase 29 U/L (17-59); Bilirubin,Total 0.4 mg/dL (0.2-1.3); Carbon Dioxide 29 mmol/L (22-30); Chloride 110 mmol/L (98-107); Estimated CRCL calculation 27 ml/min; Estimated Glomerular Filt Rate 25; Glucose 137 mg/dL (75-110); Magnesium 3.2 mg/dL (1.6-2.3); Potassium 5.3 mmol/L (3.4-5.0); Sodium 143 mmol/L (137-145)
[2019-12-09 05:27] LABS: Blood Urea Nitrogen 160 mg/dL (9-20)
--- NOTE | 2019-12-09 05:32 | P.PCNBED_ITS ---
Procedures Arterial Line: Arterial Line Date: 12/09/19 Arterial Line Time: 05:32 Discussed with the patient/family/POA, the non-emergent placement of an arterial catheter, including its clinical necessity/indication and associated potential risks and complications: Yes Patient/family/POA and/or understand(s) and acknowledge(s) the need to proceed with the arterial catheter insertion as an important element of the patient's clinical management: Yes A pre-procedural Time-Out was completed immediately before starting the procedure and confirmed: Patient Identification, Site, Procedure, Patient Position and the Availability of Requisite Equipment: Yes Patient Position: supine Motorized Squad Captain Prep: sterile gown, sterile gloves, mask and hat Site: right and femoral Site Prep: chlorhexidine and sterile drape Skin Anesthesia: placed under general anesthesia Technique used: ultrasound-guided Size (Gauge): 14 Length: 12 cm Closure/Dressing: suture Patient tolerated procedure: well and no complications Complications: none Additional comments: Date of service of procedure was 12/09/2019 at 05:00 hrs.
[2019-12-09] MEDS: CENTRAL LINE FLUSH 10 ML IV PUSH ×2 (05:37→13:05)
[2019-12-09] MEDS: PROPOFOL IV EMULSION 100 ML 12.5 MG IV CONT (05:37)
[2019-12-09 05:48] LABS: Glucose Point of Care 142 (65-105)
[2019-12-09 06:02] LABS: Alveolar/Arterial O2 Gradient 369.8 mmHg; Base Excess ABG 1.7 mEq/l (+/-2.0); Carboxyhemoglobin 0.2 % THb (0-2.0); Fractional Inspired Oxygen 70 %; HCO3 ABG 26.9 mEq/l (22.0-26.0); Methemoglobin ABG 0.7 %THb (0-1.5); Oxygen Content ABG 11.3 %vol (16.0-22.0); Oxygen Saturation ABG 95.8 % (95.0-100.0); Oxyhemoglobin 92.8 % THb (90.0-100.0); PCO2 ABG 44.9 mmHg (35.0-45.0); PO2 FiO2 Ratio Arterial Blood 1.16 %; Reduced Hemoglobin 6.3 %THb (0-5.0); Total Hemoglobin 8.6 g/dL (12.0-18.0); pH ABG 7.395 (7.350-7.450)
[2019-12-09 06:03] LABS: Arterial Blood Gas Ventilator rate 26 /MIN; Device VENTILATOR; Site Drawn ARTLINE
[2019-12-09 06:04] LABS: Arterial Blood Gas PEEP 12 cmH2O; Arterial Blood Gas Tidal Volume 400 ml; Arterial Blood Gas Vent Mode CMV
[2019-12-09 06:19] LABS: INR 1.3; Prothrombin Time 16.1 Seconds (11.1-14.7)
[2019-12-09 06:20] LABS: Partial Thromboplastin Time 44.1 SECONDS (22.3-36.8)
--- NOTE | 2019-12-09 07:00 | WPDINTPN ---
Progress Note: A&P Assessment and Plan (1) Respiratory failure: Qualifiers: Chronicity: acute on chronic Respiratory failure complication: hypoxia and hypercapnia Qualified Code(s): J96.21 - Acute and chronic respiratory failure with hypoxia; J96.22 - Acute and chronic respiratory failure with hypercapnia Code(s): J96.90 - Respiratory failure, unspecified, unspecified whether with hypoxia or hypercapnia Status: Acute Assessment and Plan: patient presented with shortness of breath likely related to pneumonia, pulmonary embolism, interstitial lung disease, lung cancer and ARDS Patient intubated on 11/28/2019. endotracheal tube changed on 12/03 - chest x-ray and ABG reviewed - continue with current ventilator settings Wean further if possible - Patient does not tolerate lowering of sedation and develops patient ventilator dyssynchrony leading to desaturation - continue low tidal volume strategy and high peep. - patient has been cefepime, vancomycin. Azithromycin and vancomycin discontinued I will continue cefepime for now. 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 OFF Nimbex and Versed. - will try to keep the intake and output balanced to avoid fluid overload contributing as pulmonary edema and respiratory failure. Patient is off of IV fluids. he Was positive by 5 L. Echocardiogram showed dilated IVC. patient was given daily Lasix for last few days. Will hold further Lasix due to increase in creatinine (2) Acute respiratory distress syndrome (ARDS): Code(s): J80 - Acute respiratory distress syndrome Status: Acute Assessment and Plan: see above (3) Pulmonary embolism: Onset Date: ~11/2019 Qualifiers: Pulmonary embolism type: single subsegmental (without acute cor pulmonale) Qualified Code(s): I26.93 - Single subsegmental pulmonary embolism without acute cor pulmonale Code(s): I26.99 - Other pulmonary embolism without acute cor pulmonale Status: Acute Assessment and Plan: CT PE protocol revealed subsegmental pulmonary embolism in the left lower lobe with small thrombus burden. - will discontinue Lovenox at this time- see below - discussed option of IVC filter with the family. Considering current therapy goals and plan for palliative care, patient's and I both agree that there is no benefit in pursuing IVC filter at this point (4) Pneumonia: Qualifiers: Laterality: bilateral Lung location: unspecified part of lung Pneumonia type: due to unspecified organism Qualified Code(s): J18.9 - Pneumonia, unspecified organism Code(s): J18.9 - Pneumonia, unspecified organism Status: Acute Assessment and Plan: mixed interstitial and airspace disease throughout both lungs which may represent a combination of pneumonia, metastatic disease, fibrosis, edema. - Continue antibiotics as above - continue bronchodilators - patient is thick secretions in ETT, continue Pulmozyme (5) Lung cancer: Qualifiers: Laterality: right Lung location: upper lobe of lung Qualified Code(s): C34.11 - Malignant neoplasm of upper lobe, right bronchus or lung Code(s): C34.90 - Malignant neoplasm of unspecified part of unspecified bronchus or lung Status: Chronic Assessment and Plan: records obtained from [facility] oncology. 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 He received chemotherapy with etoposide and cisplatin and radiotherapy. patient is supposed to follow-up with [facility] for restaging CT chest abdomen pelvis and head CT. (6) Chronic interstitial lung disease: Code(s): J84.9 - Interstitial pulmonary disease, unspecified Status: Chronic Assessment and Plan: patient with history of interstitial
[2019-12-09] MEDS: BUDESONIDE RESPULE NEB 0.5 MG/2 ML AMP INHALATION (08:07)
[2019-12-09] MEDS: DORNASE ALFA INH SOLN 1 MG/ML 2.5 ML AMP 2.5 MG INHALATION (08:07)
[2019-12-09] MEDS: SODIUM CHLORIDE 0.9% IV 1,000 ML 999 ML IV CONT ×2 (08:54→10:18)
[2019-12-09] MEDS: methylPREDNISolone SOD SUCC 125 MG VIAL IV PUSH (08:57)
[2019-12-09] MEDS: PANTOPRAZOLE SODIUM IV 40 MG VIAL IV PUSH (08:57)
[2019-12-09] MEDS: INSULIN GLARGINE (*BKC) 100 UNITS/ML 15 UNITS SUB-Q (08:58)
[2019-12-09] MEDS: TAMSULOSIN HCL 0.4 MG CAPSULE PO (08:58)
[2019-12-09] MEDS: SODIUM POLYSTYRENE SULFONONATE 15 GM/60 ML BTL 30 GM PO (08:58)
--- NOTE | 2019-12-09 10:48 | PCDIET ---
Nutrition Follow-Up Complete: Nutrition Diagnosis: Increased nutrient needs related to increased protein demands as evidenced by estimated needs of 98-115 grams of protein daily Nutrition Goal: Total intake will meet estimated kcal and protein needs Goal progressing, as patient now tolerating Glucerna 1.2 at 50mL/hr with no significant residuals. Possible plan for palliative extubation tomorrow noted. Last recorded weight is 81.3 kg which is stable. Bowel Motility: BM x 1 on 12/08/19. Labs Reviewed: Hgb (8.2), Hct (25.6), Glu (137), Cl (110), K (5.3), Alb (2.4), Una Ca (9.28) Meds Noted: Cefepime, Precedex, Solu Medrol, Fentanyl, Novolog, Lantus, Atrovent, Protonix, Propofol (12.5mL/hr provides 330kcal over 24 hour period), 0.45NaCl at 100mL/hr Additional Notes: s/p 30g SPS earlier today. No open sores documented. Recommend continuing present tube feeding. If patient remains intubated and renal function worsens, may need to consider change to Nepro. Nutrition Monitoring and Evaluation: Follow up every Thursday/Thursday. Follow daily in ICU rounds.
[2019-12-09] MEDS: PROPOFOL IV EMULSION 100 ML 25 MG IV CONT (11:40)
[2019-12-09 11:49] LABS: Glucose Point of Care 182 (65-105)
--- NOTE | 2019-12-09 12:10 | PM.EVENT ---
Event Note Event Note Event Note: Patient had drop in his blood pressure and his map has been in 50. Patient was given 1 L saline bolus with temporary improvement.. Earlier propofol had to be increased to allow safe ventilation and avoid desaturation. I spoke to patient's at the bedside again and discussed starting vasopressors. She at this point does not want any further escalation of care. She wants to continue the current management until rest of the family arrives and then do palliative extubation. If patient deteriorates prior to that she feels that that he will make his decision himself. This discussion happened in presence of patient's nurse Gely. We will respect patient's wishes and continue current supportive care and do not had any further therapies.
--- NOTE | 2019-12-09 17:46 | P.DN_ITS ---
Discharge Sum: Prov Provider Primary care physician: UNKNOWN,DOCTOR Admitting provider: Rafaela Urbina MD Consults: 11/28/19 14:10 Consult to Physician Routine Comment: Consulting Provider: Chino Gleason Reason for consultation: Respiratory failure, ARDS, Pneumonia, PE Has provider been notified: Yes 11/29/19 09:30 Consult to Physician Routine Comment: SPOKE WITH DR. SHANKAR Consulting Provider: Brayan Villar call manager/MD group to consult: Dr. Villar Reason for consultation: A.fib RVR Has provider been notified: Yes 11/29/19 09:37 Consult to Physician Routine Comment: CONSULT CALL TO OFFICE SPOKE WITH TIAGO Consulting Provider: Sloane Chávez call manager/MD group to consult: Pulmonology Reason for consultation: interstitial lung disease, lung Ca, ARDS Has provider been notified: Yes 12/08/19 Consult to Physician Routine Comment: EXCHANGE NOTIFIED Consulting Provider: Kimo Toro call manager/MD group to consult: nephrology Reason for consultation: OLIVE Has provider been notified: Yes Consult to Physician Routine Comment: SPOKE WITH TREVOR AT THE OFFICE Consulting Provider: Miguel Ángel Leach call manager/MD group to consult: General Surgery Reason for consultation: L arm hematoma Has provider been notified: Yes Discharge Sum: Diag Contributing Factors (1) Respiratory failure: (2) Acute respiratory distress syndrome (ARDS): (3) Pulmonary embolism: (4) Pneumonia: (5) Lung cancer: (6) Chronic interstitial lung disease: (7) BPH (benign prostatic hyperplasia): (8) Atrial fibrillation with RVR: (9) OLIVE (acute kidney injury): (10) Hematoma: (11) Thrombocytopenia: Discharge Sum: Summary Date and Time Date of admission: 11/28/19 14:08 Summary Details: 59-year-old white male with chronic interstitial lung disease COPD neuro endocrine carcinoma of the lung who had undergone course of radiation and chemotherapy at [place] just recently presented with increasing shortness breath cough and respiratory distress. Found to have pneumonia and respiratory failure and was intubated and mechanically ventilated. Developed what appeared to be adult respiratory distress syndrome requiring saturations is 60-70% FiO2 with positive and expiratory pressures of 12. He could not be weaned from the ventilator and family was contemplating a terminal wean with comfort care. The day of his though his pressure continue to fall despite pressors and developed junctional rhythm and proximal 1521 on the 08 of January. Had been treated for small subsegmental pulmonary emboli also and had developed more than 1 spontaneous hematoma with the Lovenox treatments . He had been treated with broad-spectrum antibiotics vancomycin and cefepime for full 10 day course. Cultures were no growth. The last 48 hours prior to discharge he developed acute renal failure also with creatinine rising from 1.4-2.6 Cause of thought to be respiratory failure secondary to pneumonia, inter stitial lung disease, and lung cancer. Additional Data Attending physician: Rafaela Urbina MD
== END 2019-12-09 15:06 | disposition expired | DRG 870 ==
LOC: ANHED 14:12 → ANHICU 11-29 14:18
PROVIDERS: Family Medicine; Internal Medicine; Internal Medicine Critical Care Medicine; Nurse Practitioner; Admitting Provider Family Medicine; Emergency Provider Emergency Medicine; Visit Provider Internal Medicine
DX: A41.9 Sepsis, unspecified organism (principal); J96.21 Acute and chronic respiratory failure with hypoxia; I26.93 Single subsegmental thrombotic pulmonary embolism without acute cor pulmonale; J18.9 Pneumonia, unspecified organism; J96.22 Acute and chronic respiratory failure with hypercapnia; J84.9 Interstitial pulmonary disease, unspecified; I47.1 Supraventricular tachycardia; J95.89 Other postprocedural complications and disorders of respiratory system, not elsewhere classified; C7A.8 Other malignant neuroendocrine tumors; N17.9 Acute kidney failure, unspecified; K56.7 Ileus, unspecified; Z92.21 Personal history of antineoplastic chemotherapy; Z92.3 Personal history of irradiation; F17.210 Nicotine dependence, cigarettes, uncomplicated; Z99.81 Dependence on supplemental oxygen; N40.0 Benign prostatic hyperplasia without lower urinary tract symptoms; K21.9 Gastro-esophageal reflux disease without esophagitis; R65.20 Severe sepsis without septic shock; I10 Essential (primary) hypertension; J43.9 Emphysema, unspecified; I48.91 Unspecified atrial fibrillation; R73.9 Hyperglycemia, unspecified; T45.515A Adverse effect of anticoagulants, initial encounter; M79.81 Nontraumatic hematoma of soft tissue
CPT/HCPCS: 36415; 36600; 71045; 71275; 73200; 74018; 80048; 80053; 80202; 81001; 82375; 82550; 82805; 83050; 83605; 83735; 84100; 84145; 84439; 84443; 84478; 84480; 84484; 85025; 85027; 85055; 85610; 85730; 86140; 87040; 87070; 87081; 87086; 87205; 87804; 93005; 94002; 94003; 94640; 96365; 96367; 96375; 99291; A9270; C8929; C9113; J0131; J0153; J0456; J0692; J0696; J1644; J1650; J1815; J1940; J2060; J2250; J2704; J2920; J2930; J3010; J3360; J3370; J7030; J7050; J7060; Q9957; Q9967